=== PATIENT | female | born 1960 | race Caucasian/White ===

== ENCOUNTER 2022-01-05 12:53 | Emergency (ER) | payer MEDICAID, SELFPAY ==
--- NOTE | 2022-01-05 12:57 | ED.PSYCH ---
HPI - Psych General Chief Complaint: Psychiatric Symptoms Stated Complaint: SI SEEKING DETOX Time Seen by Provider: 01/05/22 12:57 Source: patient Mode of arrival: EMS Limitations: no limitations History of Present Illness HPI Narrative: 61 yo female with ETOH abuse, lupus reports increased stressors, ETOH and SI complaint: suicidal ideation and feels depressed Onset (ago): day(s) Duration: getting worse History of same: Yes Relieving factors: none Exacerbating factors: alcohol Context: recent alcohol abuse Associated psychiatric symptoms: depression and suicidal ideation Associated symptoms: denies other symptoms Treatments prior to arrival: none If self harm: admits thoughts of self harm Related Data Home Medications Medication Instructions Recorded Confirmed etanercept 50 mg/mL (1 mL) 1 ml subcut QWEEK 01/05/22 01/05/22 subcutaneous pen injector (Enbrel SureClick) Allergies Allergy/AdvReac Type Severity Reaction Status Date / Time No Known Allergies Allergy Verified 01/05/22 13:14 Review of Systems Review of Systems: Constitutional : No Fever, No Chills ENT/Mouth : No Ear Pain, No Nasal Congestion, No sore throat Eyes: No Eye Pain, No Swelling, No Redness Cardiovascular : No Chest Pain, No SOB Respiratory : No Cough, No Sputum, No Dyspnea Gastrointestinal : No Nausea, No Vomiting, No Diarrhea, No Hematochezia, No Melena Genitourinary : No Dysuria, No Urinary Frequency, No Hematuria Musculoskeletal : No Myalgias Skin : No Skin Lesions, No rash Neuro : No Weakness, No Numbness, No Paresthesias, No Dizziness, No Headache Psych : positive Anxiety, positive Depression, positive SI no HI Heme/Lymph: No Lymphadenopathy Endocrine : No Polyuria, No Polydipsia All other systems reviewed and are negative [facility] Past Medical History Attestation statement: The following information was validated with the patient. Medical History Alcohol abuse Lupus Social History Social History (Updated 01/05/22 @ 13:56 by Fabiola Grimes DO) Alcohol intake: current Patient Tobacco Use Status: Current everyday Tobacco user Advance Directives: No Physical Exam Vital Signs: Vital Signs: Last Vital Signs Temp 98.3 F 01/05/22 14:10 Pulse 105 H 01/05/22 14:10 Resp 16 01/05/22 14:10 BP 156/133 H 01/05/22 14:10 Pulse Ox 98 01/05/22 14:10 O2 Del Method 01/05/22 14:10 BMI result Body Mass Index 23.8 Appearance: Alert. Oriented X3. No acute distress. ETOH odor Eyes: Pupils equal, round and reactive to light. ENT: Pharynx normal. Neck: Normal inspection. Neck supple. CVS: Normal heart rate and rhythm. Pulses normal. Respiratory: No respiratory distress. Breath sounds normal. Abdomen: Soft and non-tender. Skin: Skin warm and dry. Normal skin color. Normal skin turgor. Extremities: No lower extremity edema. No calf ttp Neuro: Oriented X 3. No motor deficit. No sensory deficit. CN 2-12 intact Course Course Course Narrative: LFTs and AG expected from [facility] Physician observation started at 312pm. Patient placed in physician observation because the patient needed more time for BHN to assess the need for psych admission. At the time observation was started the patient's vitals were stable, patient is alert and oriented, Neuro: nonfocal, CV RRR, Lungs clear MDM - Psych MDM Narrative Medical decision making narrative: 61 yo female with ETOH abuse, made SI statements at this time labs, PRN mediactions, BHN consult ordered. Dispo per results and their recommendations Lab Data Result diagrams: 01/05/22 14:38 01/05/22 14:38 Labs: Lab Results 01/05/22 01/05/22 01/05/22 Range/Units 14:38 14:38 14:38 WBC 5.7 (4.8-10.8) X10*3/uL RBC 3.48 L (4.20-5.50) X10*6/uL Hgb 12.0 (12.0-16.0) g/dl Hct 36.5 L (37.0-47.0) % MCV 104.9 H (80.0-98.0) fL MCH 34.5 H (27.0-33.0) pg MCHC 32.9 (31.0-35.0) g/dl RDW 16.6 H (11.0-16.0) % Plt Count 197 (160-400) X10*3/uL MPV 9.1 L (9.4-12.3) fL Immature Gran % (Auto) 0.2 (0.0-0.4) % Neut % (Auto) 48.1 (45-73) % Lymph % (Auto) 42.3 H (20-40) % Mcdonald % (Auto) 7.4 (2-11) % Eos % (Auto) 0.4 (0-4) % Baso % (Auto) 1.6 (0-2) % Lymph # (Auto) 2.4 (1.2-4.9) X10*3/uL Mcdonald # (Auto) 0.4 (0.1-1.2) X10*3/uL Eos # (Auto) 0.0 (0.0-0.4) X10*3/uL Baso # (Auto) 0.1 (0.0-0.2) X10*3/uL Abs Immat Gran (auto) 0.01 (0.00-0.03) X10*3/uL Absolute Neuts (auto) 2.7 (2.0-8.3) x10*3/uL Absolute Nucleated RBC 0.000 (0.0-0.012) X10*3/uL Nucleated RBC % (auto) 0.0 (0.0-0.2) /100WBC Sodium 142 (135-145) mmol/L Potassium 3.7 (3.3-5.1) mmol/L Chloride 103 (96-108) mmol/L Carbon Dioxide 20 L (22-29) mmol/L Anion Gap 23 H (12-20) BUN 13 (9-16) mg/dL Creatinine 0.68 (0.5-1.4) mg/dL Estim Creat Clear Calc 69.5 Estimated GFR > 60 Random Glucose 120 H (60-115) mg/dL Calcium 8.7 (8.4-10.2) mg/dL Magnesium 1.7 (1.6-2.6) mg/dL Total Bilirubin 0.5 (0.0-1.0) mg/dL Direct Bilirubin 0.3 (0.0-0.5) mg/dL AST 149 H (5-31) U/L ALT 74 H (0-31) U/L Alkaline Phosphatase 74 (39-117) U/L Total Protein 6.6 (6.5-8.0) g/dL Albumin 3.8 (3.5-5.0) g/dL Ethyl Alcohol 233 mg/dL COVID-19 (KIM) Negative (Negative) COVID-19 Clin Com See Note Discharge Plan Discharge Clinical Impression: Alcohol abuse Depression Qualifiers: Depression Type: unspecified Qualified Code(s): F32.A - Depression, unspecified Patient Disposition: Still a Patient Prescriptions: No Action Enbrel SureClick 50 mg/mL (1 mL) pen injector 1 ml subcut QWEEK
[2022-01-05] MEDS: LORazepam 1 MG TABLET 2 MG PO (13:36)
[2022-01-05] MEDS: Nicotine 21 MG PATCH.TD24 TRANSDERMA (13:36)
[2022-01-05] MEDS: Thiamine HCL 100 MG TABLET PO (13:37)
[2022-01-05 14:10] VITALS: BP 140/90; BP 156/133; PULSE 105; PULSE 99; RESP 16; TEMP 36.8; O2SAT 98; BMI 23.8
--- NOTE | 2022-01-05 14:30 | MHC.CARE ---
CARE Team checked in with Pt who is asking to leave. Pt denies current SI/HI/AH/VH. Pt reports she struggle with alcohol use and made a suicidal statement earlier but denies it now. Pt reports no hx of IPLOC admissions. Pt reports having a current therapist who knows everything about her . 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 Pt reports drinking today and interested in the recovery team. Plan for Pts BAL to be obtained to make further recommendations.
--- OUTSIDE RECORDS SUMMARY | 2022-01-05 14:32 | XMS_ITS | Continuity of Care Document ---
:1960 Author Organization [facility]ILITATION DIRECT[facility] Oncology Address [address] [place] [address]- Care Team Providers Name Role Phone Alva Jones Primary Care Physician [place] [facility] [place]20 [facility]IL[facility] DIRECT[facility] Oncology [address] [place] [id number] Allergies, Adverse Reactions, Alerts Substance Reaction Severity Status NKA Active Immunizations Not Given Vaccine Date Status Refusal Reason pneumococcal 23-valent vaccine 05/05/19 Not Given P atient Refuses Medications acetaminophen 325 mg oral capsule 2 capsule = 650 mg, By Mouth, Every 4 hours, PRN as needed for pain, # 40 capsule, 0 Refills, Maintenance, 02/16/20 7:58:00 EST, Capsule, [facility], Partial fill upon patient request if the prescription is for a schedule II opioid drug.... Start Date: 02/16/20 Status: OrderedColace sodium 100 mg oral capsule 100 mg, 1, capsule, By Mouth, 2 times a day, PRN, # 60 capsule, Refills 0, Tot. Refills 0, Maintenance, for constipation, 02/16/20 10:23:00 EST, Route to Pharmacy Electronically, [facility], Partial fill upon patient request if the presc... Start Date: 02/16/20 Status: Orderedetanercept 50 mg/mL subcutaneous solution = 50 mg, Subcutaneous Injection, Every week, every Saturday, # 3.92 mL, 0 Refills, Maintenance, 02/08/20 11:01:00 EST, Solution, Partial fill upon patient request Start Date: 02/08/20 Status: OrderedIbuprofen 800 mg, By Mouth, Daily, Refills 0, Maintenance, 02/08/20 10:51:00 EST, Partial fill upon patient request Start Date: 02/08/20 Status: Orderedibuprofen 600 mg oral tablet 600 mg, 1, tablet, By Mouth, Every 6 hours, # 40 tablet, Refills 0, Tot. Refills 0, Maintenance, 02/16/20 7:56:00 EST, Route to Pharmacy Electronically, [facility], Partial fill upon patient request if the prescription is for a schedule... Start Date: 02/16/20 Status: OrderedoxyCODONE 5 mg oral tablet 10 mg, 2, tablet, By Mouth, Every 6 hours, PRN, # 10 tablet, Refills 0, Tot. Refills 0, Maintenance,as needed for pain, 02/19/20 14:02:00 EST, Route to Pharmacy Electronically, [id number] ([id number]), Partial fill upon patient request if th... Start Date: 02/19/20 Status: OrderedSenna 8.6 mg oral tablet 8.6 mg, 1, tablet, By Mouth, 2 times a day, PRN, # 12 tablet, Refills 0, Tot. Refills 0, Maintenance, for constipation, 02/16/20 10:23:00 EST, Route to Pharmacy Electronically, [facility], Partial fill upon patient request if the... Start Date: 02/16/20 Status: Ordered Problem List Condition Effective Dates Status Health Status Informant Anemia(Confirmed) Active Degenerative disc disease, Active cervical(Confirmed) Lumbar degenerative disc Active disease(Confirmed) History of sepsis(Confirmed) Active Lupus(Confirmed) Active Pancreatitis(Confirmed) Active Pelvic mass in female(Confirmed) Active Thrombocytopenia(Confirmed) Active Follow-up examination after Active gynecological surgery(Confirmed) Social History Social History Type Response Smoking Status Former smoker, quit more yousuf n 30 days ago; Other: 1/2 ppd day for 155-20 years; entered on: 01/28/20 Sex
--- OUTSIDE RECORDS SUMMARY | 2022-01-05 14:32 | XMS_ITS | Continuity of Care Document ---
:1960 Author Organization [facility] PAINTER Oncology Address [address] [place] [address]- Care Team Providers Name Role Phone Alva Jones Primary Care Physician [place] [facility] [place](s): 03/02/20 - 04/28/20 [facility] [address] [place] [id number] Attending Physician: Luis Felipe Arellano MD Admitting Physician: Luis Felipe Arellano MD Referring Physician: Alva Jones Allergies, Adverse Reactions, Alerts Substance Reaction Severity Status NKA Active Immunizations Not Given Vaccine Date Status Refusal Reason pneumococcal 23-valent vaccine 05/05/19 Not Given P atient Refuses Medications acetaminophen 325 mg oral capsule 2 capsule = 650 mg, By Mouth, Every 4 hours, PRN as needed for pain, # 40 capsule, 0 Refills, Maintenance, 02/16/20 7:58:00 EST, Capsule, [facility], Partial fill upon patient request if the prescription is for a schedule II opioid drug.... Start Date: 02/16/20 Status: OrderedColace sodium 100 mg oral capsule 100 mg, 1, capsule, By Mouth, 2 times a day, PRN, # 60 capsule, Refills 0, Tot. Refills 0, Maintenance, for constipation, 02/16/20 10:23:00 EST, Route to Pharmacy Electronically, [facility], Partial fill upon patient request if the [...] 02/16/20 7:56:00 EST, Route to Pharmacy Electronically, [facility], Partial fill upon patient request if the prescription is for a schedule... Start Date: 02/16/20 Status: OrderedoxyCODONE 5 mg oral tablet 10 mg, 2, tablet, By Mouth, Every 6 hours, PRN, # 10 tablet, Refills 0, Tot. Refills 0, Maintenance,as needed for pain, 02/19/20 14:02:00 EST, Route to Pharmacy Electronically, [facility] ([id number]), Partial fill upon patient request if th... Start Date: 02/19/20 Status: OrderedSenna 8.6 mg oral tablet 8.6 mg, 1, tablet, By Mouth, 2 times a day, PRN, # 12 tablet, Refills 0, Tot. Refills 0, Maintenance, for constipation, 02/16/20 10:23:00 EST, Route to Pharmacy Electronically, [facility], Partial fill upon patient request [...]
--- OUTSIDE RECORDS SUMMARY | 2022-01-05 14:32 | XMS_ITS | Continuity of Care Document ---
:1960 Author Organization [facility] Address [address] [place] [id number]- Care Team Providers Name Role Phone Alva Jones Primary Care Physician Encounter [facility] [place] Date(s): 06/17/19 - 10/15/19 [facility] [address] [place] [id number] [facility] Attending Physician: Lucho Eduardo MD Admitting Physician: Lucho Eduardo MD Referring Physician: Alva Jones Allergies, Adverse Reactions, Alerts Substance Reaction Severity Status NKA Active Immunizations Not Given Vaccine Date Status Refusal Reason pneumococcal 23-valent vaccine 05/05/19 Not Given P atient Refuses Medications docusate sodium 100 mg oral tablet = 100 mg, By Mouth, 2 times a day, # 60 tablet, 0 Refills, Maintenance, 05/08/19 9:51:00 EST, Tablet Start Date: 05/08/19 Status: OrderedIbuprofen Refills 0, Maintenance, 04/13/16 14:56:28 Start Date: 04/13/16 Status: Ordered
--- OUTSIDE RECORDS SUMMARY | 2022-01-05 14:32 | XMS_ITS | Continuity of Care Document ---
:1960 Author Organization [facility] Address [address] [place] [id number]- Care Team Providers Name Role Phone Alva Jones Primary Care Physician [phone] Encounter [facility] [place] Date(s): 09/02/19 - 12/19/19 [facility] [address] [place] [id number] [facility] Attending Physician: Lucho Eduardo MD Admitting Physician: [...]
--- OUTSIDE RECORDS SUMMARY | 2022-01-05 14:32 | XMS_ITS | Continuity of Care Document ---
:1960 Author Organization [facility] MANAGER Oncology Address [address] [place] [address]- Care Team Providers Name Role Phone Alva Jones Primary Care Physician [place] [facility] [place]20 [facility] ENGINEERING MANAGER Oncology [address] [place] [id number] Allergies, Adverse Reactions, Alerts Substance Reaction Severity Status NKA Active Immunizations Not Given Vaccine Date Status Refusal Reason pneumococcal 23-valent vaccine 05/05/19 Not Given P atient Refuses Medications acetaminophen 325 mg oral capsule 2 capsule = 650 mg, By Mouth, Every 4 hours, PRN as needed for pain, # 40 capsule, 0 Refills, Maintenance, 02/16/20 7:58:00 EST, Capsule, [facility], Partial fill upon patient request if the prescription is for a schedule II opioid drug.... Start Date: 02/16/20 Status: OrderedColace sodium 100 mg oral capsule 100 mg, 1, capsule, By Mouth, 2 times a day, PRN, # 60 capsule, Refills 0, Tot. Refills 0, Maintenance, for constipation, 02/16/20 10:23:00 EST, Route to Pharmacy Electronically, [facility], Partial fill upon patient request if [...] 02/16/20 7:56:00 EST, Route to Pharmacy Electronically, [facility], Partial fill upon patient request if the prescription is for a schedule... Start Date: 02/16/20 Status: OrderedoxyCODONE 5 mg oral tablet 10 mg, 2, tablet, By Mouth, Every 6 hours, PRN, # 10 tablet, Refills 0, Tot. Refills 0, Maintenance,as needed for pain, 02/19/20 14:02:00 EST, Route to Pharmacy Electronically, [facility] ([id number]), Partial fill upon patient request if th... Start Date: 02/19/20 Status: OrderedSenna 8.6 mg oral tablet 8.6 mg, 1, tablet, By Mouth, 2 times a day, PRN, # 12 tablet, Refills 0, Tot. Refills 0, Maintenance, for constipation, 02/16/20 10:23:00 EST, Route to Pharmacy Electronically, [facility], Partial fill upon patient request if the... Start Date: 02/16/20 Status: Ordered Problem List Condition Effective Dates Status Health Status Informant Anemia(Confirmed) Active Degenerative disc disease, Active cervical(Confirmed) Lumbar degenerative disc Active disease(Confirmed) History of sepsis(Confirmed) Active Lupus(Confirmed) Active Pancreatitis(Confirmed) Active Pelvic mass in female(Confirmed) Active Thrombocytopenia(Confirmed) Active Social History Social History Type Response Smoking Status Former smoker, quit more yousuf n 30 days ago; Other: 1/2 ppd day for 155-20 years; entered on: 01/28/20 Sex
--- OUTSIDE RECORDS SUMMARY | 2022-01-05 14:32 | XMS_ITS | Continuity of Care Document ---
:1960 Author Organization [facility] Address [address] [place] [address]- Care Team Providers Name Role Phone Alva Jones Primary Care Physician Encounter [facility] [place] [id number] Date(s): 06/25/19 - 07/05/19 [facility] [address] [place] [id number] [facility] Attending Physician: Sheldon Chavez Admitting Physician: Sheldon Chavez Referring Physician: AdmtrSheldon Allergies, Adverse Reactions, Alerts Substance Reaction Severity [...]
--- OUTSIDE RECORDS SUMMARY | 2022-01-05 14:32 | XMS_ITS | Continuity of Care Document ---
:1960 Author Organization [facility] DIVISION DIRECTOR Oncology Address [address] [place] [address]- Care Team Providers Name Role Phone Alva Jones Primary Care Physician Encounter [facility] [place] Date(s): 02/05/20 - 03/06/20 [facility] DIRECT[facility] Oncology [address] [place] [id number] Allergies, Adverse Reactions, Alerts Substance Reaction Severity Status NKA Active Immunizations Not Given Vaccine Date Status Refusal Reason pneumococcal 23-valent vaccine 05/05/19 Not Given P atient Refuses Medications acetaminophen 325 mg oral capsule 2 capsule = 650 mg, By Mouth, Every 4 hours, PRN as needed for pain, # 40 capsule, 0 Refills, Maintenance, 02/16/20 7:58:00 EST, Capsule, [facility], Partial fill upon patient request if the prescription is for a schedule II opioid drug.... Start Date: 02/16/20 Status: OrderedColace sodium 100 mg oral capsule 100 mg, 1, capsule, By Mouth, 2 times a day, PRN, # 60 capsule, Refills 0, Tot. Refills 0, Maintenance, for constipation, 02/16/20 10:23:00 EST, Route to Pharmacy Electronically, [facility], Partial fill upon patient request if [...] 02/16/20 7:56:00 EST, Route to Pharmacy Electronically, [facility], Partial fill upon patient request if the prescription is for a schedule... Start Date: 02/16/20 Status: OrderedoxyCODONE 5 mg oral tablet 10 mg, 2, tablet, By Mouth, Every 6 hours, PRN, # 10 tablet, Refills 0, Tot. Refills 0, Maintenance,as needed for pain, 02/19/20 14:02:00 EST, Route to Pharmacy Electronically, [facility] ([id number]), Partial fill upon patient request if th... Start Date: 02/19/20 Status: OrderedSenna 8.6 mg oral tablet 8.6 mg, 1, tablet, By Mouth, 2 times a day, PRN, # 12 tablet, Refills 0, Tot. Refills 0, Maintenance, for constipation, 02/16/20 10:23:00 EST, Route to Pharmacy Electronically, [facility] 3[facility]t, Partial fill upon patient request [...]
--- OUTSIDE RECORDS SUMMARY | 2022-01-05 14:32 | XMS_ITS | Continuity of Care Document ---
:1960 Author Organization [facility] DINING ROOM SUPERVISOR Oncology Address [address] [place] [address]- Care Team Providers Name Role Phone Alva Jones Primary Care Physician [place] [facility] [place](s): 03/29/20 - 04/28/20 [facility] DINING ROOM SUPERVISOR Oncology [address] [place] [id number] Attending Physician: Sheldon Chavez Admitting Physician: Admtr, Sheldon Referring Physician: Admtr, Ar8 Allergies, Adverse Reactions, Alerts Substance Reaction Severity Status NKA Active Immunizations Not Given Vaccine Date Status Refusal Reason pneumococcal 23-valent vaccine 05/05/19 Not Given P atient Refuses Medications acetaminophen 325 mg oral capsule 2 capsule = 650 mg, By Mouth, Every 4 hours, PRN as needed for pain, # 40 capsule, 0 Refills, Maintenance, 02/16/20 7:58:00 EST, Capsule, [facility], Partial fill upon patient request if the prescription is for a schedule II opioid drug.... Start Date: 02/16/20 Status: OrderedColace sodium 100 mg oral capsule 100 mg, 1, capsule, By Mouth, 2 times a day, PRN, # 60 capsule, Refills 0, Tot. Refills 0, Maintenance, for constipation, 02/16/20 10:23:00 EST, Route to Pharmacy Electronically, [facility], Partial fill upon patient request [...] 7:56:00 EST, Route to Pharmacy Electronically, [facility], Partial fill upon patient request if the prescription is for a schedule... Start Date: 02/16/20 Status: OrderedoxyCODONE 5 mg oral tablet 10 mg, 2, tablet, By Mouth, Every 6 hours, PRN, # 10 tablet, Refills 0, Tot. Refills 0, Maintenance,as needed for pain, 02/19/20 14:02:00 EST, Route to Pharmacy Electronically, [facility] [id number] ([id number]), Partial fill upon patient request if th... Start Date: 02/19/20 Status: OrderedSenna 8.6 mg oral tablet 8.6 mg, 1, tablet, By Mouth, 2 times a day, PRN, # 12 tablet, Refills 0, Tot. Refills 0, Maintenance, for constipation, 02/16/20 10:23:00 EST, Route to Pharmacy Electronically, [facility], Partial fill upon patient request [...]
--- OUTSIDE RECORDS SUMMARY | 2022-01-05 14:32 | XMS_ITS | Continuity of Care Document ---
:1960 Author Organization [facility] Address [address] [place] [id number]- Care Team Providers Name Role Phone Alva Jones Primary Care Physician [place] [facility] [place] 07/02/19 [facility] [address] [place] [id number] [facility] Attending Physician: Lucho Eduardo MD [...]
--- OUTSIDE RECORDS SUMMARY | 2022-01-05 14:32 | XMS_ITS | Continuity of Care Document ---
:1960 Author Organization [facility] [place] Address [address] [place] [address], [address] [address]- Care Team Providers Name Role Phone Alva Jones Primary Care Physician Encounter 05/27/19 - 06/03/19 [facility] [address], [address] [phone]- [facility] Attending Physician: Lucho Eduardo MD Admitting Physician: Lucho Eduardo MD Referring Physician: Lucho Eduardo MD Allergies, Adverse Reactions, Alerts Substance Reaction Severity [...]
--- OUTSIDE RECORDS SUMMARY | 2022-01-05 14:32 | XMS_ITS | Continuity of Care Document ---
:1960 Author Organization [facility] Address [address] [place] [address]- Care Team Providers Name Role Phone Alva Jones Primary Care Physician [place] [facility] [place]20 [place] 03/09/20 [facility] [address] [place] [id number] Allergies, Adverse Reactions, Alerts Substance Reaction Severity Status NKA Active Immunizations Not Given Vaccine Date Status Refusal Reason pneumococcal 23-valent vaccine 05/05/19 Not Given P atient Refuses Medications acetaminophen 325 mg oral capsule 2 capsule = 650 mg, By Mouth, Every 4 hours, PRN as needed for pain, # 40 capsule, 0 Refills, Maintenance, 02/16/20 7:58:00 EST, Capsule, [facility], Partial fill upon patient request if the prescription is for a schedule II opioid drug.... Start Date: 02/16/20 Status: OrderedColace sodium 100 mg oral capsule 100 mg, 1, capsule, By Mouth, 2 times a day, PRN, # 60 capsule, Refills 0, Tot. Refills 0, Maintenance, for constipation, 02/16/20 10:23:00 EST, Route to Pharmacy Electronically, [facility], Partial fill upon patient request [...] 02/16/20 7:56:00 EST, Route to Pharmacy Electronically, [facility], Partial fill upon patient request if the prescription is for a schedule... Start Date: 02/16/20 Status: OrderedoxyCODONE 5 mg oral tablet 10 mg, 2, tablet, By Mouth, Every 6 hours, PRN, # 10 tablet, Refills 0, Tot. Refills 0, Maintenance,as needed for pain, 02/19/20 14:02:00 EST, Route to Pharmacy Electronically, [email or web address] Partial fill upon patient request if th... Start Date: 02/19/20 Status: OrderedSenna 8.6 mg oral tablet 8.6 mg, 1, tablet, By Mouth, 2 times a day, PRN, # 12 tablet, Refills 0, Tot. Refills 0, Maintenance, for constipation, 02/16/20 10:23:00 EST, Route to Pharmacy Electronically, [facility], Partial fill upon patient request if [...]
--- OUTSIDE RECORDS SUMMARY | 2022-01-05 14:32 | XMS_ITS | Continuity of Care Document ---
:1960 Author Organization [facility] Address [address] [place] [address]- Care Team Providers Name Role Phone Alva Jones Primary Care Physician En[place] [facility] [place] [id number] Date(s): 11/19/19 - 12/19/19 [facility] [address] [place] [address]- [facility] Attending Physician: Sheldon Chavez Admitting Physician: Sheldon [...]
--- OUTSIDE RECORDS SUMMARY | 2022-01-05 14:32 | XMS_ITS | Continuity of Care Document ---
:1960 Author Organization [facility] Address [address] [place] [address]- Care Team Providers Name Role Phone Alva Jones Primary Care Physician [place] [facility] [place] - 05/08/[address] [address]- [facility] Discharge Disposition: A-D/C Home Attending Physician: Noé Rubalcava MD Admitting Physician: Noé Rubalcava MD Referring Physician: Not on Staff, Referring MD Allergies, Adverse Reactions, Alerts Substance Reaction Severity Status NKA Active Immunizations Not Given Vaccine Date Status Refusal Reason pneumococcal 23-valent vaccine 05/05/19 Not Given P atient Refuses Medications acetaminophen 325 mg oral tablet 650 mg, By Mouth, Every 4 hours, PRN, for 7 days, not to exceed 4000 mg/day, # 40 tablet, Refills 0,Tot. Refills 0, Acute 05/15/19 9:51:00 EST, Pain , Moderate, 05/08/19 9:51:00 EST, Print Requisition Start Date: 05/08/19 Stop Date: 05/15/19 Status: Ordereddocusate sodium 100 mg oral tablet = 100 mg, By Mouth, 2 times a day, # 60 tablet, 0 Refills, Maintenance, 05/08/19 9:51:00 EST, Tablet Start Date: 05/08/19 Status: OrderedIbuprofen Refills 0, Maintenance, 04/13/16 14:56:28 Start Date: 04/13/16 Status: OrderedlevoFLOXacin 750 mg oral tablet 1 tablet = 750 mg, By Mouth, Every 24 hours, for 4 days, # 4 tablet, 0 Refills, Acute 05/12/19 9:50:00 EST, 05/08/19 9:50:00 EST, Tablet Start Date: 05/08/19 Stop Date: 05/12/19 Status: OrderedoxyCODONE 5 mg oral tablet 5 mg, 1, tablet, By Mouth, Every 4 hours, PRN, for 5 days, # 8 tablet, Refills 0, Tot. Refills 0, Acute 05/13/19 9:51:00 EST, Pain , Severe, 05/08/19 9:51:00 EST, Print Requisition, Partial fill upon patient request Start Date: 05/08/19 Stop Date: 05/13/19 Status: Ordered Results Orders for Microbiology Reports Name Date Anaerobic Culture (ANAEROBIC CULTURE) 05/06/19 Sterile Body Fluid Culture W/ Gram Smear (STERILE FLUI D CULT.) 05/06/19 Microbiology Reports TEST:Anaerobic Culture STATUS:Unauthenticated BODY SITE: SOURCE:FLUID COLLECTED DATE/TIME:05/06/19 4:10 PMAnaerobic Culture SPECIMEN DESCRIPTION : FLUID PANCREATIC SPECIAL REQUESTS : NONE CULTURE : NO ANAEROBES ISOLATED SO FAR. REPORT STATUS : PRELIMINARY REPORT TEST:Sterile Fluid Culture STATUS:Unauthenticated BODY SITE: SOURCE:FLUID COLLECTED DATE/TIME:05/06/19 4:10 PMSterile Fluid Culture SPECIMEN DESCRIPTION : FLUID PANCREATIC SPECIAL REQUESTS : NONE GRAM STAIN : 3+ WHITE BLOOD CELLS NO ORGANISMS SEEN CULTURE : NO GROWTH TO DATE REPORT STATUS : PRELIMINARY REPORT Vital Signs Most recent to oldest 1 2 3 [Reference Range]: Height 159 cm 159 cm 159 cm (05/07/19 3:28 PM) (05/07/19 11:28 AM) (05/07/19 7: 28 AM) Weight 55.9 kg 55.9 kg (05/06/19 1:19 PM) (05/03/19 8:16 PM) Oxygen Saturation [94-100 %] 100 % 100 % 95 % (05/08/19 11:00 AM) (05/08/19 7:00 AM) (05/08/19 2: 55 AM) Pulse Rate [55-90 bpm] 66 bpm 67 bpm 75 bpm (05/08/19 11:00 AM) (05/08/19 7:00 AM) (05/08/19 2: 55 AM) Body Mass Index [18.5-24.99] 22.11 22.11 (05/06/19 1:19 PM) (05/03/19 8:16 PM) Blood Pressure [90-138/55-84 108/61 mm Hg 107/66 mm Hg 119 /61 mm Hg mm Hg] (05/08/19 11:00 AM) (05/08/19 7:00 AM) (05/08/19 2: 55 AM) Respiratory Rate [16-30 16 br/min 16 br/min 16 br/mi n br/min] (05/08/19 3:00 PM) (05/08/19 2:59 PM) (05/08/19 1:4 5 PM) Temperature [96.8-100.4 DegF] 98.1 DegF 97.7 DegF 98 .1 DegF (05/08/19 11:00 AM) (05/08/19 7:00 AM) (05/08/19 2: 55 AM) Mode of Delivery (Oxygen) Room air Room air Room a ir (05/08/19 11:00 AM) (05/08/19 7:00 AM) (05/08/19 2: 55 AM) Blood pressure sites Arm, left Arm, left Arm, left (05/08/19 11:00 AM) (05/08/19 7:00 AM) (05/08/19 2: 55 AM) Temperature Route Oral Oral Oral (05/08/19 11:00 AM) (05/08/19 7:00 AM) (05/08/19 2: 55 AM) Dry Weight 61.2 kg 55.9 kg (05/06/19 6:10 PM) (05/03/19 8:16 PM) Dry Weight Obtained Via Bed scale (05/06/19 6:10 PM) Sensory deficits None (05/03/19 8:16 PM) Mobility assistance Independent (05/03/19 8:16 PM)
--- OUTSIDE RECORDS SUMMARY | 2022-01-05 14:32 | XMS_ITS | Continuity of Care Document ---
:1960 Author Organization [facility] Address [address] [place] [address]- Care Team Providers Name Role Phone Alva Jones Primary Care Physician [phone] Encounter [facility] [place] Date(s): 06/01/19 - 06/01/[address] [address]- [facility] Discharge Disposition: A-D/C Home Attending Physician: Lucho Eduardo MD Admitting Physician: [...] 04/13/16 14:56:28 Start Date: 04/13/16 Status: Ordered Results Radiology Reports Exam Date Time Procedure Performing Provider Status 06/01/19 9:09 AM ERCP Both Ducts [facility]; Auth (Verguzman d) Notes:(ERCP Both Ducts) Reason For Exam: STENT REMOVALRESULT: ERCP Both Ducts ERCP Both Ducts INDICATION: Reason: STENT REMOVAL COMPARISONS: None TECHNIQUE: Fluoroscopy support was provided. There was no radiologist in attendance. Fluoroscopy time: 17 seconds Technologist time: 40 minutes Exposure: 3.8 mGy FINDINGS: 7 images were submitted. Please refer to operative note for full details. IMPRESSION: See above. WSN: [id number] Ordering Physician: Lucho Eduardo Dictated By: Campos Flores MD Dictated Date/Time: 06/01/19 10:02 a Reviewed By: Campos Flores MD Signed By: Campos Flores MD Signed Date/Time: 06/01/19 10:02 am Transcribed By: KRISTI Transcribed Date/Time: 06/01/19 10:01 am Vital Signs Most recent to oldest 1 2 3 [Reference Range]: Height 160.0 cm (06/01/19 7:55 AM) Oxygen Saturation [94-100 %] 99 % 100 % 100 % (06/01/19 9:20 AM) (06/01/19 9:16 AM) (06/01/19 9:1 1 AM) Pulse Rate [55-90 bpm] 79 bpm (06/01/19 7:55 AM) Blood Pressure [90-138/55-84 mm 120/70 mm Hg 123/70 mm Hg 109/83 mm Hg Hg] (06/01/19 9:20 AM) (06/01/19 9:16 AM) (06/01/19 9:1 1 AM) Respiratory Rate [16-30 br/min] 13 br/min 33 br/min 17 br/min *L* *H* (06/01/19 9:11 AM ) (06/01/19 9:20 AM) (06/01/19 9:16 AM) Temperature [96.8-100.4 DegF] 97.9 DegF (06/01/19 7:55 AM) Mode of Delivery (Oxygen) Room air Room air Room a ir (06/01/19 9:20 AM) (06/01/19 9:16 AM) (06/01/19 9:1 1 AM) Blood pressure sites Arm, left (06/01/19 7:55 AM) Temperature Route Temporal (06/01/19 7:55 AM) Dry Weight 52.2 kg (06/01/19 7:55 AM)
--- OUTSIDE RECORDS SUMMARY | 2022-01-05 14:32 | XMS_ITS | Continuity of Care Document ---
:1960 Author Organization [facility] Address [address] [place] [address]- Care Team Providers Name Role Phone Alva Joens Primary Care Physician [phone] Encounter [facility] [place] Date(s): 02/15/20 - 02/16/[address] [address]- Encounter Diagnosis Post-operative state (Discharge Diagnosis) - 02/16/20 Discharge Disposition: A-D/C Home Attending Physician: Luis Felipe Arellano MD Admitting Physician: Luis Felipe Arellano MD Referring Physician: Luis Felipe Arellano MD Allergies, Adverse Reactions, Alerts Substance Reaction Severity Status NKA Active Immunizations Not Given Vaccine Date Status Refusal Reason pneumococcal 23-valent vaccine 05/05/19 Not Given P atient Refuses Medications acetaminophen 325 mg oral capsule 2 capsule = 650 mg, By Mouth, Every 4 hours, PRN as needed for pain, # 40 capsule, 0 Refills, Maintenance, 02/16/20 7:58:00 EST, Capsule, [facility], Partial fill upon patient request if the prescription is for a schedule II opioid drug.... Start Date: 02/16/20 Status: OrderedAugmentin 500 mg-125 mg oral tablet 1 tablet, By Mouth, Every 8 hours, for 7 days, # 21 tablet, 0 Refills, Acute 02/23/20 8:00:00 EST, 02/16/20 8:00:00 EST, Tablet, [facility], Partial fill upon patient request if the prescription is for a schedule II opioid drug., 158.5,... Start Date: 02/16/20 Stop Date: 02/23/20 Status: OrderedColace sodium 100 mg oral capsule 100 mg, 1, capsule, By Mouth, 2 times a day, PRN, # 60 capsule, Refills 0, Tot. Refills 0, Maintenance, for constipation, 02/16/20 10:23:00 EST, Route to Pharmacy Electronically, [facility], Partial fill upon patient request if the [...] Orderedibuprofen 600 mg oral tablet 600 mg, Tablet, By Mouth, 02/16/20 7:00:00 EST Start Date: 02/16/20 Stop Date: 02/16/20 Status: Completedibuprofen 600 mg oral tablet 600 mg, 1, tablet, By Mouth, Every 6 hours, # 40 tablet, Refills 0, Tot. Refills 0, Maintenance, 02/16/20 7:56:00 EST, Route to Pharmacy Electronically, [facility], Partial fill upon patient request if the prescription is for a schedule... Start Date: 02/16/20 Status: OrderedoxyCODONE 5 mg oral tablet 10 mg, 2, tablet, By Mouth, Every 6 hours, PRN, # 10 tablet, Refills 0, Tot. Refills 0, Maintenance,for pain, 02/16/20 7:59:00 EST, Route to Pharmacy Electronically, [facility], Partial fill upon patient request if the prescription is f... Start Date: 02/16/20 Status: OrderedPercocet-5 Tablet 2 tablet, Tablet, By Mouth, Every 4 hours, PRN for Pain , Severe, Routine, 02/15/20 13:14:00 EST Start Date: 02/15/20 Stop Date: 02/16/20 Status: DiscontinuedSenna 8.6 mg oral tablet 8.6 mg, 1, tablet, By Mouth, 2 times a day, PRN, # 12 tablet, Refills 0, Tot. Refills 0, Maintenance, for constipation, 02/16/20 10:23:00 EST, Route to Pharmacy Electronically, [facility], Partial fill upon patient request if the... Start Date: 02/16/20 Status: Ordered Problem List Condition Effective Dates Status Health Status Informant Anemia(Confirmed) Active Degenerative disc disease, Active cervical(Confirmed) Lumbar degenerative disc Active disease(Confirmed) History of sepsis(Confirmed) Active Lupus(Confirmed) Active Pancreatitis(Confirmed) Active Pelvic mass in female(Confirmed) Active Thrombocytopenia(Confirmed) Active Diagnosis Diagnosis Type Effective Dates Health Status Clinical In formant Service Post-operative Discharge 02/16/20 state Diagnosis Vital Signs Most recent to oldest 1 2 3 [Reference Range]: Height 158.5 cm 158.5 cm 158.5 cm (02/16/20 7:02 AM) (02/16/20 3:30 AM) (02/15/20 11: 49 PM) Weight 57 kg 56.8 kg (02/15/20 9:20 AM) (02/08/20 11:16 AM) Oxygen Saturation [94-100 97 % 100 % 97 % %] (02/16/20 7:02 AM) (02/16/20 3:30 AM) (02/15/20 11: 49 PM) Pulse Rate [55-90 bpm] 66 bpm 89 bpm 86 bpm (02/16/20 7:02 AM) (02/16/20 3:30 AM) (02/15/20 11: 49 PM) Body Mass Index 22.69 22.61 [18.5-24.99] (02/15/20 9:20 AM) (02/08/20 11:16 AM) Blood Pressure 134/69 mm Hg 146/80 mm Hg 154/75 mm Hg [90-138/55-84 mm Hg] (02/16/20 7:02 AM) *H* *H* (02/16/20 3:30 AM) (02/15/20 11:49 PM) Respiratory Rate [16-30 16 br/min 16 br/min 18 br/mi n br/min] (02/16/20 7:53 AM) (02/16/20 7:53 AM) (02/16/20 7:0 2 AM) Temperature [96.8-100.4 99.6 DegF 98.6 DegF 99.0 Deg F DegF] (02/16/20 7:02 AM) (02/16/20 3:30 AM) (02/15/20 11: 49 PM) Liters per Minute 2 L/min 2 L/min 6 L/min (02/15/20 3:00 PM) (02/15/20 2:15 PM) (02/15/20 1:4 5 PM) Mode of Delivery (Oxygen) Room air Room air Room a ir (02/16/20 7:02 AM) (02/16/20 3:30 AM) (02/15/20 11: 49 PM) Blood pressure sites Arm, right Arm, right Arm, right (02/16/20 7:02 AM) (02/16/20 3:30 AM) (02/15/20 11: 49 PM) Temperature Route Oral Oral Oral (02/16/20 7:02 AM) (02/16/20 3:30 AM) (02/15/20 11: 49 PM) Dry Weight 57 kg 56.8 kg (02/15/20 9:20 AM) (02/08/20 11:16 AM) Weight Obtained Via Standing scale Patient/family stated (02/15/20 9:20 AM) (02/08/20 11:16 AM) Dry Weight Obtained Via Standing scale Patient/family stated (02/15/20 9:20 AM) (02/08/20 11:16 AM) Social History Social History Type Response Smoking Status Former smoker, quit more yousuf n 30 days ago; Other: 1/2 ppd day for 155-20 years; entered on: 01/28/20 Sex
--- OUTSIDE RECORDS SUMMARY | 2022-01-05 14:33 | XMS_ITS | Continuity of Care Document ---
:1960 Author Organization [facility] Address [address] [facility], 3rd Floor, [address] [place] [address]- Care Team Providers Name Role Phone Alva Jones Primary Care Physician [phone] [place] [facility] [place]): 04/29/20 - 05/29/20 [facility] [address] [facility], [address] Floor, [address] [place] [id number] Attending Physician: Sheldon Chavez Admitting Physician: Sheldon [...] 0 Refills, Maintenance, 02/16/20 7:58:00 EST, Capsule, [facility], Partial fill upon patient request if the prescription is for a schedule II opioid drug.... Start Date: 02/16/20 Status: OrderedColace sodium 100 mg oral capsule 100 mg, 1, capsule, By Mouth, 2 times a day, PRN, # 60 capsule, Refills 0, Tot. Refills 0, Maintenance, for constipation, 02/16/20 10:23:00 EST, Route to Pharmacy Electronically, [facility], Partial fill upon patient request [...] 02/16/20 7:56:00 EST, Route to Pharmacy Electronically, [facility], Partial fill upon patient request if the prescription is for a schedule... Start Date: 02/16/20 Status: OrderedoxyCODONE 5 mg oral tablet 10 mg, 2, tablet, By Mouth, Every 6 hours, PRN, # 10 tablet, Refills 0, Tot. Refills 0, Maintenance,as needed for pain, 02/19/20 14:02:00 EST, Route to Pharmacy Electronically, [id number] Partial fill upon patient request if th... Start Date: 02/19/20 Status: OrderedSenna 8.6 mg oral tablet 8.6 mg, 1, tablet, By Mouth, 2 times a day, PRN, # 12 tablet, Refills 0, Tot. Refills 0, Maintenance, for constipation, 02/16/20 10:23:00 EST, Route to Pharmacy Electronically, [facility], Partial fill upon patient request if [...]
--- OUTSIDE RECORDS SUMMARY | 2022-01-05 14:33 | XMS_ITS | Continuity of Care Document ---
:1960 Author Organization [facility] Address [address] [place] [address], [address] [address]- Care Team Providers Name Role Phone Alva Jones Primary Care Physician Encounter 08/25/19 - 09/01/19 [facility] [address], [address] [address]- [facility] Attending Physician: Lucho Eduardo MD Admitting [...]
[2022-01-05 14:45] LABS: MANUAL DIFF FLAG NO
[2022-01-05 14:47] LABS: Basophils Absolute Auto 0.1 X10*3/uL (0.0-0.2); Basophils Percent Auto 1.6 % (0-2); Eosinophils Percent Auto 0.4 % (0-4); Hematocrit 36.5 % (37.0-47.0); Imm Gran Abs Auto 0.01 X10*3/uL (0.00-0.03); Imm Gran Pct Auto 0.2 % (0.0-0.4); Lymphocytes Absolute Auto 2.4 X10*3/uL (1.2-4.9); Lymphocytes Percent Auto 42.3 % (20-40); Mean Corpuscular HGB Conc 32.9 g/dl (31.0-35.0); Mean Corpuscular Hemoglobin 34.5 pg (27.0-33.0); Mean Corpuscular Volume 104.9 fL (80.0-98.0); Mean Platelet Volume 9.1 fL (9.4-12.3); Monocytes Absolute Auto 0.4 X10*3/uL (0.1-1.2); Monocytes Percent Auto 7.4 % (2-11); Neutrophils Absolute Auto 2.7 x10*3/uL (2.0-8.3); Neutrophils Percent Auto 48.1 % (45-73); Platelet Count 197 X10*3/uL (160-400); Red Blood Count 3.48 X10*6/uL (4.20-5.50); Red Cell Distribution Width 16.6 % (11.0-16.0); White Blood Count 5.7 X10*3/uL (4.8-10.8)
[2022-01-05 14:59] LABS: COVID-19 Test Negative (Negative); IDNOW Serial# 55D5AD1C
[2022-01-05 15:09] LABS: Alanine Aminotransferase 74 U/L (0-31); Albumin Level 3.8 g/dL (3.5-5.0); Alkaline Phosphatase 74 U/L (39-117); Anion Gap 23 (12-20); Aspartate Amino Transferase 149 U/L (5-31); Bilirubin Direct 0.3 mg/dL (0.0-0.5); Bilirubin Total 0.5 mg/dL (0.0-1.0); Blood Urea Nitrogen 13 mg/dL (9-16); Calcium 8.7 mg/dL (8.4-10.2); Carbon Dioxide 20 mmol/L (22-29); Chloride 103 mmol/L (96-108); Creatinine Clr Calc Pharmacy 69.5; Estimated Glomerular Filt Rate > 60; Ethanol 233 mg/dL; Glucose Random 120 mg/dL (60-115); Magnesium 1.7 mg/dL (1.6-2.6); Potassium 3.7 mmol/L (3.3-5.1); Sodium 142 mmol/L (135-145); Total Protein 6.6 g/dL (6.5-8.0)
--- NOTE | 2022-01-05 19:07 | MHC.CARE ---
CARE Team checks in with pt again. CARE Team met w/ pt earlier, however, we are following up as pt was intoxicated during that time. Pt denies SI, stating that was the alcohol talking. She denies hx of attempts, access to lethal means and hx of inpt admissions. Pt is interested in recovery, and options are discussed. Pt is interested in [facility] in [place], [place]. Referral information is given to pt. Pt needs a ride home, and CARE Team will attempt to provide this. If pt is still in ED when cost recovery technician gets in, pt will be referred to cost recovery technician to continue discussing [facility] tx options. Case is discussed with DEX Casey, who agrees pt is appropriate for discharge att.
== END 2022-01-05 19:17 | disposition home or self-care (01) ==
PROVIDERS: Emergency Provider Emergency Medicine
DX: F33.1 Major depressive disorder, recurrent, moderate (principal); R45.851 Suicidal ideations; F10.10 Alcohol abuse, uncomplicated; Y90.9 Presence of alcohol in blood, level not specified; F17.200 Nicotine dependence, unspecified, uncomplicated; Z20.822 Contact with and (suspected) exposure to COVID-19; Z71.6 Tobacco abuse counseling; Z79.899 Other long term (current) drug therapy
CPT/HCPCS: 80048; 80076; 82077; 83735; 85025; 87635; 99282; 99284

== ENCOUNTER 2022-01-21 20:06 | Emergency (ER) | payer MEDICAID, SELFPAY ==
[2022-01-21 20:36] VITALS: BP 110/79; BP 150/80; PULSE 90; PULSE 91; RESP 18; TEMP 37.1; O2SAT 100; O2SAT 99; BMI 16.8
[2022-01-21 20:36] LABS: MANUAL DIFF FLAG NO
--- NOTE | 2022-01-21 20:38 | ED.PSYCH ---
HPI - Psych General Chief Complaint: ETOH/Substance Use Stated Complaint: etoh Time Seen by Provider: 01/21/22 20:51 Source: patient and EMS Mode of arrival: EMS Limitations: other (Patient very intoxicated) History of Present Illness HPI Narrative: This is a 61-year-old female presenting to the emergency department telling me she would like detox in stating she has been having anxiety and depression for few weeks worsening. Patient reports that she has been on a drinking binge in needs help. Reports she has been calling multiple psych facilities in the area that have not been able to take her. She tells me she has been drinking about 8 nips of vodka a day. She reports recent of parents and of a CT that she had for 20 years. These have been triggering. Denies visual, auditory and tactile hallucinations. Denies drugs tobacco. Patient denies medical complaints. Arrives agitated, tearful, appears intoxicated. She did make SI comments to EMS however denies SI and HI to myself. Related Data Home Medications Medication Instructions Recorded Confirmed etanercept 50 mg/mL (1 mL) 1 ml subcut QWEEK 01/05/22 01/05/22 subcutaneous pen injector (Enbrel SureClick) Allergies Allergy/AdvReac Type Severity Reaction Status Date / Time No Known Allergies Allergy Verified 01/21/22 20:35 Review of Systems Review of Systems: Constitutional : No Fever, No Chills ENT/Mouth : No Ear Pain, No Nasal Congestion, No sore throat Eyes: No Eye Pain, No Swelling, No Redness Cardiovascular : No Chest Pain, No SOB Respiratory : No Cough, No Sputum, No Dyspnea Gastrointestinal : No Nausea, No Vomiting, No Diarrhea, No Hematochezia, No Melena Genitourinary : No Dysuria, No Urinary Frequency, No Hematuria Musculoskeletal : No Myalgias Skin : No Skin Lesions, No rash Neuro : No Weakness, No Numbness, No Paresthesias, No Dizziness, No Headache Psych : positive Anxiety, positive Depression, No SI/HI Heme/Lymph: No Lymphadenopathy Endocrine : No Polyuria, No Polydipsia All other systems reviewed and are negative Yes all other systems are reviewed and are negative PMFSH Past Medical History Attestation statement: The following information was validated with the patient. Source: old records reviewed and nursing notes reviewed Medical History Alcohol abuse Lupus Social History Social History (Updated 01/05/22 @ 13:56 by Fabiola Grimes DO) Alcohol intake: current Patient Tobacco Use Status: Current everyday Tobacco user Advance Directives: No Advance Directives Information Provided: No Physical Exam Vital Signs: Vital Signs: Last Vital Signs Temp 97.4 F 01/22/22 09:02 Pulse 88 01/22/22 09:02 Resp 15 01/22/22 04:56 BP 151/79 H 01/22/22 09:02 Pulse Ox 100 01/22/22 09:02 O2 Del Method 01/22/22 09:02 BMI result Body Mass Index 16.8 vss Appearance: Alert.? Oriented X3.? No acute distress.? Patient smells like alcohol Head: Normocephalic, atraumatic, no step-offs or deformities Eyes: Pupils equal, round and reactive to light.? ENT: Pharynx normal.? Neck: Normal inspection.? Neck supple.? CVS: Normal heart rate and rhythm.? Pulses normal.? Respiratory: No respiratory distress.? Breath sounds normal.? Abdomen: Soft and nontender.? Skin: Skin warm and dry.? Normal skin color.? Normal skin turgor.? Extremities: No lower extremity edema.? No calf ttp. 5/5 strength to bilateral upper and lower extremities Neuro: Oriented X 3.? No motor deficit.? No sensory deficit. CN 2-12 intact . Patient ambulating with steady gait normal coordination. Course Reevaluation(s) Reevaluation #1: CBC appears to be around patient's baseline with a macrocytic anemia likely secondary to alcohol abuse, chemistry with decreased potassium, gave oral potassium repeat chemistry ordered to recheck potassium. Urine clean without infection. Urine toxicology negative. Patient is negative for salicylates, acetaminophen. Ethanol level 343 Time: 01:21 Reevaluation #2: At this time patient placed in physician observation pending repeat potassium. At time observation was started patient calm & cooperative in no acute distress will continue monitor Time: 01:23 Medications Administered Discontinued Medications Generic Name Dose Route Start Last Admin Trade Name Freq PRN Reason Stop Dose Admin Lorazepam 1 mg 01/22/22 09:25 01/22/22 09:28 Lorazepam 1 Mg Tablet PO 01/22/22 09:26 1 mg ONCE ONE Administration Ondansetron HCl 4 mg 01/22/22 09:25 01/22/22 09:28 Ondansetron Odt 4 Mg Tab.Rapdis TRANSLINGU 01/22/22 09:26 4 mg ONCE ONE Administration Potassium Chloride 40 meq 01/21/22 21:09 01/21/22 21:48 Potassium Chloride Er 20 Meq Tab.Er.Prt PO 01/21/22 21:10 40 meq ONCE ONE Administration MDM - Psych MDM Narrative Medical decision making narrative: 2039 61-year-old female presents with acute alcohol intoxication, anxiety, depression and made a suicidal comments to EMS. Reports recent life stressors of family members and of cat of 20 years. Physical examination benign however patient is smells like alcohol and appears to be acutely intoxicated. Plan at this time medical clearance evaluation by the behavioral health team. Medical Records Attestation: I reviewed the patient's medical records. Lab Data Attestation: I reviewed the patient's lab results. Result diagrams: 01/21/22 20:01/22/22 02:52 Labs: Lab Results 01/21/22 01/21/22 01/21/22 Range/Units 20:22 20:22 20:22 WBC 5.4 (4.8-10.8) X10*3/uL RBC 3.25 L (4.20-5.50) X10*6/uL Hgb 11.4 L (12.0-16.0) g/dl Hct 33.0 L (37.0-47.0) % MCV 101.5 H (80.0-98.0) fL MCH 35.1 H (27.0-33.0) pg MCHC 34.5 (31.0-35.0) g/dl RDW 16.1 H (11.0-16.0) % Plt Count 107 L D (160-400) X10*3/uL MPV 9.3 L (9.4-12.3) fL Immature Gran % (Auto) 0.2 (0.0-0.4) % Neut % (Auto) 40.5 L (45-73) % Lymph % (Auto) 52.2 H (20-40) % [place] % (Auto) 5.9 (2-11) % Eos % (Auto) 0.6 (0-4) % Baso % (Auto) 0.6 (0-2) % Lymph # (Auto) 2.8 (1.2-4.9) X10*3/uL [place] # (Auto) 0.3 (0.1-1.2) X10*3/uL Eos # (Auto) 0.0 (0.0-0.4) X10*3/uL Baso # (Auto) 0.0 (0.0-0.2) X10*3/uL Abs Immat Gran (auto) 0.01 (0.00-0.03) X10*3/uL Absolute Neuts (auto) 2.2 (2.0-8.3) x10*3/uL Absolute Nucleated RBC 0.000 (0.0-0.012) X10*3/uL Nucleated RBC % (auto) 0.0 (0.0-0.2) /100WBC Sodium 144 (135-145) mmol/L Potassium 2.9 L D (3.3-5.1) mmol/L Chloride 107 (96-108) mmol/L Carbon Dioxide 23 (22-29) mmol/L Anion Gap 17 (12-20) BUN 14 (9-16) mg/dL Creatinine 0.66 (0.5-1.4) mg/dL Estim Creat Clear Calc 61.6 Estimated GFR > 60 Random Glucose 136 H (60-115) mg/dL Calcium 9.2 (8.4-10.2) mg/dL Total Bilirubin 0.6 (0.0-1.0) mg/dL AST 31 D (5-31) U/L ALT 20 (0-31) U/L Alkaline Phosphatase 78 (39-117) U/L Total Protein 6.8 (6.5-8.0) g/dL Albumin 4.0 (3.5-5.0) g/dL Urine Color Urine Appearance Urine pH (5.0-9.0) Ur Specific [place] (1.005-1.025) Urine Protein (Neg-Trace) mg/dL Urine Glucose (UA) (Negative) mg/dL Urine Ketones (Negative) mg/dL Urine Blood (Negative) Urine Nitrite (Negative) Ur Leukocyte Esterase (Negative) Urine RBC (0-2) /HPF Urine WBC (0-5) /HPF Ur Squamous Epith Cells (0-2) /HPF Urine Bacteria (None Seen) Hyaline Casts (0-2) /LPF Salicylates < 5.0 L (15-30) mg/dL Urine Opiates Screen (Not Detect) Urine Fentanyl Screen (Not Detect) Acetaminophen < 1 (<30) mcg/mL Ur Barbiturates Screen (Not Detect) Ur Phencyclidine Scrn (Not Detect) Ur Amphetamines Screen (Not Detect) U Benzodiazepines Scrn (Not Detect) Urine Cocaine Screen (Not Detect) U Marijuana (THC) Screen (Not Detect) Ethyl Alcohol 343 H* mg/dL COVID-19 (KIM) Negative (Negative) COVID-19 Clin Com See Note 01/21/22 01/21/22 01/22/22 Range/Units 20:22 20:22 02:52 WBC (4.8-10.8) X10*3/uL RBC (4.20-5.50) X10*6/uL Hgb (12.0-16.0) g/dl Hct (37.0-47.0) % MCV (80.0-98.0) fL MCH (27.0-33.0) pg MCHC (31.0-35.0) g/dl RDW (11.0-16.0) % Plt Count (160-400) X10*3/uL MPV (9.4-12.3) fL Immature Gran % (Auto) (0.0-0.4) % Neut % (Auto) (45-73) % Lymph % (Auto) (20-40) % [place] % (Auto) (2-11) % Eos % (Auto) (0-4) % Baso % (Auto) (0-2) % Lymph # (Auto) (1.2-4.9) X10*3/uL [place] # (Auto) (0.1-1.2) X10*3/uL Eos # (Auto) (0.0-0.4) X10*3/uL Baso # (Auto) (0.0-0.2) X10*3/uL Abs Immat Gran (auto) (0.00-0.03) X10*3/uL Absolute Neuts (auto) (2.0-8.3) x10*3/uL Absolute Nucleated RBC (0.0-0.012) X10*3/uL Nucleated RBC % (auto) (0.0-0.2) /100WBC Sodium 145 (135-145) mmol/L Potassium 3.4 (3.3-5.1) mmol/L Chloride 108 (96-108) mmol/L Carbon Dioxide 20 L (22-29) mmol/L Anion Gap 20 (12-20) BUN 13 (9-16) mg/dL Creatinine 0.66 (0.5-1.4) mg/dL Estim Creat Clear Calc 61.6 Estimated GFR > 60 Random Glucose 133 H (60-115) mg/dL Calcium 8.6 D (8.4-10.2) mg/dL Total Bilirubin (0.0-1.0) mg/dL AST (5-31) U/L ALT (0-31) U/L Alkaline Phosphatase (39-117) U/L Total Protein (6.5-8.0) g/dL Albumin (3.5-5.0) g/dL Urine Color Yellow Urine Appearance Cloudy Urine pH 6.0 (5.0-9.0) Ur Specific [place] 1.015 (1.005-1.025) Urine Protein Negative (Neg-Trace) mg/dL Urine Glucose (UA) Negative (Negative) mg/dL Urine Ketones Negative (Negative) mg/dL Urine Blood Negative (Negative) Urine Nitrite Negative (Negative) Ur Leukocyte Esterase Small (1+) H (Negative) Urine RBC 0-2 (0-2) /HPF Urine WBC 0-5 (0-5) /HPF Ur Squamous Epith Cells >20 (0-2) /HPF Urine Bacteria 1+ (None Seen) Hyaline Casts 0-2 (0-2) /LPF Salicylates (15-30) mg/dL Urine Opiates Screen Not Detected (Not Detect) Urine Fentanyl Screen Not Detected (Not Detect) Acetaminophen (<30) mcg/mL Ur Barbiturates Screen Not Detected (Not Detect) Ur Phencyclidine Scrn Not Detected (Not Detect) Ur Amphetamines Screen Not Detected (Not Detect) U Benzodiazepines Scrn Not Detected (Not Detect) Urine Cocaine Screen Not Detected (Not Detect) U Marijuana (THC) Screen Not Detected (Not Detect) Ethyl Alcohol mg/dL COVID-19 (KIM) (Negative) COVID-19 Clin Com Critical Care Time Critical Care Time Critical Care Time: No Discharge Plan Discharge Clinical Impression: Alcoholic intoxication, Hypokalemia, Suicidal ideations, Depression Patient Disposition: Home, Self-Care Instructions: Alcohol Intoxication (ED), Depression (ED) Prescriptions: No Action Enbrel SureClick 50 mg/mL (1 mL) pen injector 1 ml subcut QWEEK Referrals: Maria Elena Gimenez MD [Primary Care Provider] - (Please follow-up as per PHN.)
[2022-01-21 20:40] LABS: Basophils Percent Auto 0.6 % (0-2); Eosinophils Percent Auto 0.6 % (0-4); Hemoglobin 11.4 g/dl (12.0-16.0); Imm Gran Abs Auto 0.01 X10*3/uL (0.00-0.03); Imm Gran Pct Auto 0.2 % (0.0-0.4); Lymphocytes Absolute Auto 2.8 X10*3/uL (1.2-4.9); Lymphocytes Percent Auto 52.2 % (20-40); Mean Corpuscular HGB Conc 34.5 g/dl (31.0-35.0); Mean Corpuscular Hemoglobin 35.1 pg (27.0-33.0); Mean Corpuscular Volume 101.5 fL (80.0-98.0); Mean Platelet Volume 9.3 fL (9.4-12.3); Monocytes Absolute Auto 0.3 X10*3/uL (0.1-1.2); Monocytes Percent Auto 5.9 % (2-11); Neutrophils Absolute Auto 2.2 x10*3/uL (2.0-8.3); Neutrophils Percent Auto 40.5 % (45-73); Platelet Count 107 X10*3/uL (160-400); Red Blood Count 3.25 X10*6/uL (4.20-5.50); Red Cell Distribution Width 16.1 % (11.0-16.0); White Blood Count 5.4 X10*3/uL (4.8-10.8)
[2022-01-21 20:42] LABS: Appearance Urine Cloudy; Color Urine Yellow; Glucose Urine UA Negative (Negative); Leukocyte Esterase Urine Small (1+) (Negative); Nitrite Urine Negative (Negative); Specific Gravity - Urine 1.015 (1.005-1.025); UMIC TRIGGER UACC YES; Urine Blood Negative (Negative); Urine Ketones Negative (Negative); Urine Protein Negative (Neg-Trace)
--- NOTE | 2022-01-21 20:43 | PC.NURSE ---
Patient arrives to the ED demanding things be done a certain way or else I'm walking out Patient now denies stating SI statements to EMS, Patient oriented to unit and POC, labs/urine/swab done. eval by PA done. pt sitting in room at desk eating dinner without difficulty.
[2022-01-21 20:51] LABS: Amphetamine Screen Urine Not Detected (Not Detect); Bacteria Urine 1+ (None Seen); Barbiturates, Urine Not Detected (Not Detect); Benzodiazepines Screen Urine Not Detected (Not Detect); Cannabinoid Screen Urine Not Detected (Not Detect); Cocaine Screen Urine Not Detected (Not Detect); Fentanyl, urine Not Detected (Not Detect); Hyaline Casts Urine 0-2 /LPF (0-2); Opiate Screen Urine Not Detected (Not Detect); Phencyclidine Screen Urine Not Detected (Not Detect); RBC Urine 0-2 /HPF (0-2); Squamous Epithelial Cell Urine >20 /HPF (0-2); UACC Culture Trigger YES; WBC Urine 0-5 /HPF (0-5)
[2022-01-21 20:56] LABS: Acetaminophen LAB < 1 mcg/mL (<30); Alanine Aminotransferase 20 U/L (0-31); Alkaline Phosphatase 78 U/L (39-117); Anion Gap 17 (12-20); Aspartate Amino Transferase 31 U/L (5-31); Bilirubin Total 0.6 mg/dL (0.0-1.0); Blood Urea Nitrogen 14 mg/dL (9-16); Calcium 9.2 mg/dL (8.4-10.2); Carbon Dioxide 23 mmol/L (22-29); Chloride 107 mmol/L (96-108); Creatinine Clr Calc Pharmacy 61.6; Estimated Glomerular Filt Rate > 60; Ethanol 343 mg/dL; Glucose Random 136 mg/dL (60-115); Potassium 2.9 mmol/L (3.3-5.1); Salicylate < 5.0 mg/dL (15-30); Sodium 144 mmol/L (135-145); Total Protein 6.8 g/dL (6.5-8.0)
[2022-01-21 21:00] LABS: COVID-19 Test Negative (Negative)
[2022-01-21] MEDS: Potassium Chloride ER 20 MEQ TAB.ER.PRT 40 MEQ PO (21:48)
[2022-01-22 03:19] LABS: Anion Gap 20 (12-20); Blood Urea Nitrogen 13 mg/dL (9-16); Calcium 8.6 mg/dL (8.4-10.2); Carbon Dioxide 20 mmol/L (22-29); Chloride 108 mmol/L (96-108); Creatinine Clr Calc Pharmacy 61.6; Estimated Glomerular Filt Rate > 60; Glucose Random 133 mg/dL (60-115); Potassium 3.4 mmol/L (3.3-5.1); Sodium 145 mmol/L (135-145)
[2022-01-22 04:56] VITALS: BP 126/66; PULSE 101; RESP 15; TEMP 36.9; O2SAT 96
--- NOTE | 2022-01-22 06:52 | PC.NURSE ---
Patient up and down all night sleeping in naps. Up to the BR multiple times gait steady. 15min checks done.
[2022-01-22 09:02] VITALS: BP 151/79; PULSE 88; TEMP 36.3; O2SAT 100
[2022-01-22] MEDS: Ondansetron ODT 4 MG TAB.RAPDIS TRANSLINGU (09:28)
[2022-01-22] MEDS: LORazepam 1 MG TABLET PO (09:28)
--- NOTE | 2022-01-22 10:02 | MHC.RECOVRN ---
Met with pt in [facility] to discuss substance use and desire for ATS. Pt sitting, awake, alert, slightly agitated. Pt reluctant to engage in discussion regarding alcohol use. Pt reports drinking 6-8 nips daily x about 2 years. Last drink yesterday. Pt denies withdrawal symptoms, states I feel okay. When can I leave? Pt denies ATS admissions. Pt does report receiving Vivitrol from PCP a couple years ago and reports it was very helpful. Denies other forms of AUD tx. Pt educated and provided with recovery resources. Declines referrals at this time, plans to follow up with PCP regarding KRISTI. Pt requesting Lyft home, t/w will arrange. Discussed with RN as well as provider.
== END 2022-01-22 10:48 | disposition home or self-care (01) ==
PROVIDERS: Physician Assistant; Emergency Provider Student in an Organized Health Care Education/Training Program; PCP Family Medicine
DX: F10.129 Alcohol abuse with intoxication, unspecified (principal); Y90.8 Blood alcohol level of 240 mg/100 ml or more; R45.851 Suicidal ideations; F33.1 Major depressive disorder, recurrent, moderate; E87.6 Hypokalemia; F17.200 Nicotine dependence, unspecified, uncomplicated; Z20.822 Contact with and (suspected) exposure to COVID-19; Z79.899 Other long term (current) drug therapy; Z71.6 Tobacco abuse counseling
CPT/HCPCS: 36415; 80048; 80053; 80143; 80179; 80307; 81001; 82077; 85025; 87086; 87635; 99284

== ENCOUNTER 2022-05-29 22:30 | Emergency (ER) | payer OTHER, MEDICAID, SELFPAY ==
[2022-05-29 22:35] VITALS: BP 110/78; PULSE 80; O2SAT 98
[2022-05-29 23:07] VITALS: BP 136/79; PULSE 79; RESP 16; TEMP 36.6; O2SAT 98; BMI 18.4
--- NOTE | 2022-05-29 23:10 | PC.NURSE ---
Security at bedside for changeover, belongings secured by security within the pod.
--- NOTE | 2022-05-29 23:21 | ED_ITS ---
HPI - Psych General Chief Complaint: Psychiatric Symptoms Stated Complaint: SI with plan ETOH Time Seen by Provider: 05/29/22 23:20 Source: patient and EMS Mode of arrival: EMS Limitations: other (Alcohol intoxication) History of Present Illness HPI Narrative: 61-year-old female presents via EMS for alcohol intoxication and suicidal ideation. Patient states that she is having a bad day, both of her parents , and she had been drinking alcohol excessively. Patient states that she is having trouble coping, patient states that she does not want to live anymore and that she wants to . MD complaint: suicidal ideation, feels depressed and alcohol abuse Onset (ago): year(s) Duration: constant History of same: Yes Relieving factors: none Exacerbating factors: alcohol Context: recent alcohol abuse and significant life stressor Associated psychiatric symptoms: depression and suicidal ideation Associated symptoms: denies other symptoms If self harm: admits thoughts of self harm Related Data Home Medications Medication Instructions Recorded Confirmed etanercept 50 mg/mL (1 mL) 1 ml subcut QWEEK 01/05/22 01/05/22 subcutaneous pen injector (Enbrel SureClick) Allergies Allergy/AdvReac Type Severity Reaction Status Date / Time No Known Allergies Allergy Verified 05/29/22 23:09 Review of Systems Review of Systems: Yes Unobtainable due to mental status (Intoxicated) [facility] Past Medical History Attestation statement: The following information was validated with the patient. Source: old records reviewed Medical History Alcohol abuse Lupus Social History Social History Alcohol intake: current Patient Tobacco Use Status: Current everyday Tobacco user Advance Directives: No Advance Directives Information Provided: Yes Physical Exam Vital Signs: Vital Signs: Last Vital Signs Temp 97.9 F 05/29/22 23:07 Pulse 79 05/29/22 23:07 Resp 16 05/29/22 23:07 BP 136/79 05/29/22 23:07 Pulse Ox 98 05/29/22 23:07 O2 Del Method 05/29/22 23:07 BMI result Body Mass Index 18.4 Appearance: Alert. Intoxicated. Eyes: Pupils equal, round and reactive to light. Sclera nonicteric. ENT: Pharynx normal. Neck: Normal inspection. Neck supple. CVS: Normal heart rate and rhythm. Pulses normal. Respiratory: No respiratory distress. Breath sounds normal. Abdomen: Soft and nontender. Skin: Multiple abrasions to her forearms in the middle of her forehead. Extremities: No lower extremity edema. Moves all extremities against resistance. Gait not assessed for safety due to alcohol intoxication. Neuro: No motor deficit. No sensory deficit. Cranial nerves 2-12 intact Course Course Course Narrative: 7-year-old female presents via EMS for alcohol intoxication suicidal ideation. Patient states that she has had multiple life stressors, both of her parents , and she is having really bad day. Patient has been drinking alcohol on a regular basis in excessive amounts. Has had multiple presentations to the emergency department for alcohol intoxication in the past. Patient has several abrasions to her forearms and a healing abrasion to the middle of her forehead. Patient states that she does not recall how these injuries happened, but is not complaining of any pain. Patient is belligerent, speaking and derogatory manners to all staff members. Plan of care is for lab values, EtOH, wound care, update Tdap vaccine, and crisis consult. 01:50 ETOH 385, potassium 3.0, will replete with 40 mEq. Patient will not be sober for evaluation till the morning. Lab values indicate anemia consistent with EtOH, values are consistent with her prior values dating back to 2020. Physician observation started at this time. Pending crisis consult. Medications Administered Discontinued Medications Generic Name Dose Route Start Last Admin Trade Name Freq PRN Reason Stop Dose Admin Lorazepam 2 mg 05/30/22 00:17 05/30/22 00:23 Lorazepam 1 Mg Tablet PO 05/30/22 00:18 2 mg ONCE ONE Administration Medical Decision Making Differential Diagnosis Differential Diagnoses: The differential diagnosis associated with the presentation includes Suicidal ideation Admission/Observation Consideration of admission/observation: Escalation of care including admission/observation considered May require psychiatric admission Consult Healthcare Provider Management of the patient was discussed with: Behavioral Health Provider Lab Data [facility] Lab Attestation statement: I reviewed the patient's lab results. 05/29/22 23:42 05/29/22 23:42 Labs: Lab Results 05/29/22 05/29/22 Range/Units 23:42 23:42 WBC 5.3 (4.8-10.8) X10*3/uL RBC 2.81 L (4.20-5.50) X10*6/uL Hgb 10.8 L (12.0-16.0) g/dl Hct 31.3 L (37.0-47.0) % MCV 111.4 H (80.0-98.0) fL MCH 38.4 H (27.0-33.0) pg MCHC 34.5 (31.0-35.0) g/dl RDW 13.7 (11.0-16.0) % Plt Count 79 L D (160-400) X10*3/uL MPV 10.2 (9.4-12.3) fL Immature Gran % (Auto) 0.4 (0.0-0.4) % Neut % (Auto) 30.0 L (45-73) % Lymph % (Auto) 61.8 H (20-40) % [place] % (Auto) 6.7 (2-11) % Eos % (Auto) 0.4 (0-4) % Baso % (Auto) 0.7 (0-2) % Lymph # (Auto) 3.3 (1.2-4.9) X10*3/uL [place] # (Auto) 0.4 (0.1-1.2) X10*3/uL Eos # (Auto) 0.0 (0.0-0.4) X10*3/uL Baso # (Auto) 0.0 (0.0-0.2) X10*3/uL Abs Immat Gran (auto) 0.02 (0.00-0.03) X10*3/uL Absolute Neuts (auto) 1.6 L (2.0-8.3) x10*3/uL Absolute Nucleated RBC 0.000 (0.0-0.012) X10*3/uL Nucleated RBC % (auto) 0.0 (0.0-0.2) /100WBC Smear Tech's Comments VERIFIED Sodium 145 (135-145) mmol/L Potassium 3.0 L (3.3-5.1) mmol/L Chloride 104 (96-108) mmol/L Carbon Dioxide 24 (22-29) mmol/L Anion Gap 20 (12-20) BUN 10 (9-16) mg/dL Creatinine 0.64 (0.5-1.4) mg/dL Estim Creat Clear Calc 69.5 Estimated GFR > 60 Random Glucose 136 H (60-115) mg/dL Calcium 8.4 (8.4-10.2) mg/dL Total Bilirubin 1.1 H (0.0-1.0) mg/dL AST 45 H (5-31) U/L ALT 24 (0-31) U/L Alkaline Phosphatase 61 (39-117) U/L Total Protein 5.6 L (6.5-8.0) g/dL Albumin 3.4 L (3.5-5.0) g/dL Ethyl Alcohol 385 H* mg/dL External Record Review External record reviewed: Outpatient record and Prior outpatient labs No prior imaging at this was Social Determinants Patient?s care significantly limited by Social Determinants of Health including: Other Social Determinant of Health Discharge Plan Discharge Clinical Impression: Suicidal ideation, Depression, Acute hypokalemia, Alcohol abuse Patient Disposition: Still a Patient Prescriptions: No Action Enbrel SureClick 50 mg/mL (1 mL) pen injector 1 ml subcut QWEEK
[2022-05-30 00:09] LABS: Alanine Aminotransferase 24 U/L (0-31); Albumin Level 3.4 g/dL (3.5-5.0); Alkaline Phosphatase 61 U/L (39-117); Anion Gap 20 (12-20); Aspartate Amino Transferase 45 U/L (5-31); Bilirubin Total 1.1 mg/dL (0.0-1.0); Blood Urea Nitrogen 10 mg/dL (9-16); Calcium 8.4 mg/dL (8.4-10.2); Carbon Dioxide 24 mmol/L (22-29); Chloride 104 mmol/L (96-108); Creatinine Clr Calc Pharmacy 69.5; Estimated Glomerular Filt Rate > 60; Ethanol 385 mg/dL; Glucose Random 136 mg/dL (60-115); Sodium 145 mmol/L (135-145); Total Protein 5.6 g/dL (6.5-8.0)
[2022-05-30 00:13] LABS: Basophils Percent Auto 0.7 % (0-2); Eosinophils Percent Auto 0.4 % (0-4); Hematocrit 31.3 % (37.0-47.0); Hemoglobin 10.8 g/dl (12.0-16.0); Imm Gran Abs Auto 0.02 X10*3/uL (0.00-0.03); Imm Gran Pct Auto 0.4 % (0.0-0.4); Lymphocytes Absolute Auto 3.3 X10*3/uL (1.2-4.9); Lymphocytes Percent Auto 61.8 % (20-40); MANUAL DIFF FLAG SCAN; Mean Corpuscular HGB Conc 34.5 g/dl (31.0-35.0); Mean Corpuscular Hemoglobin 38.4 pg (27.0-33.0); Mean Platelet Volume 10.2 fL (9.4-12.3); Monocytes Absolute Auto 0.4 X10*3/uL (0.1-1.2); Monocytes Percent Auto 6.7 % (2-11); Neutrophils Absolute Auto 1.6 x10*3/uL (2.0-8.3); Red Blood Count 2.81 X10*6/uL (4.20-5.50); Red Cell Distribution Width 13.7 % (11.0-16.0); SCAN SMEAR FLAG 1; White Blood Count 5.3 X10*3/uL (4.8-10.8)
[2022-05-30 00:14] LABS: Mean Corpuscular Volume 111.4 fL (80.0-98.0); Platelet Count 79 X10*3/uL (160-400)
[2022-05-30] MEDS: LORazepam 1 MG TABLET 2 MG PO (00:23)
--- NOTE | 2022-05-30 00:29 | PC.NURSE ---
pt asked this rn for something to help her calm down this rn spoke with abelardo patrick regarding pt request. abelardo patrick gave verbal order with read back for 2mg ativan po. order placed. pt medicated according to may. 1:[address]
[2022-05-30 00:42] LABS: SLIDE REVIEW VERIFIED
--- NOTE | 2022-05-30 01:29 | PC.NURSE ---
1:[address] at this time. pt resting on stretcher after being provided with [place]. pt appears to have decrease in anxiety since po ativan was given
[2022-05-30] MEDS: Potassium Chloride ER 20 MEQ TAB.ER.PRT 40 MEQ PO (02:17)
[2022-05-30] MEDS: Diphth,Pertus(ACell),Tet Adult 0.5 ML SYRINGE IM (02:20)
--- NOTE | 2022-05-30 04:08 | PC.NURSE ---
this rn assisted pt via wheelchair to restroom. obtained urine sample at this time. pt gait unsteady during transfer. this rn and operator automated process assisted pt back onto stretcher. 1:[address] at this time
[2022-05-30 04:16] LABS: Appearance Urine Clear; Color Urine Yellow; Glucose Urine UA Negative (Negative); Leukocyte Esterase Urine Negative (Negative); Nitrite Urine Negative (Negative); Specific Gravity - Urine 1.015 (1.005-1.025); Urine Blood Negative (Negative); Urine Ketones Negative (Negative); Urine Protein Negative (Neg-Trace)
[2022-05-30 04:27] VITALS: BP 118/60; PULSE 95; RESP 18; TEMP 36.7; O2SAT 98
[2022-05-30 04:27] LABS: Amphetamine Screen Urine Not Detected (Not Detect); Barbiturates, Urine Not Detected (Not Detect); Benzodiazepines Screen Urine Not Detected (Not Detect); Cannabinoid Screen Urine Not Detected (Not Detect); Cocaine Screen Urine Not Detected (Not Detect); Fentanyl, urine Not Detected (Not Detect); Opiate Screen Urine Not Detected (Not Detect); Phencyclidine Screen Urine Not Detected (Not Detect)
[2022-05-30 07:26] VITALS: BP 122/67; PULSE 104; RESP 16; TEMP 37.6; O2SAT 95
--- NOTE | 2022-05-30 09:16 | PC.NURSE ---
this nurse resumed care of this patient at 915 am, patient currently sleeping, vital signs previously stable per ismael, 1:1 sitter at bedside for safety, will continue to monitor
--- NOTE | 2022-05-30 11:57 | MHC.CARE ---
Addendum entered by Yesenia Ford [facility] 05/30/22 12:02: CARE team filed elder protective report to follow up with Veronica in community. Original Note: Pt seen by CARE team she is clinically sober, denies suicidal ideation plan or intent and does not meet inpatient level of care currently. Care team made referral to recovery for resources and pt can be discharged home.
[2022-05-30] MEDS: Magnesium Oxide 400 MG TABLET PO (12:39)
[2022-05-30] MEDS: Potassium Chloride Packet 20 MEQ PACKET 40 MEQ PO (12:39)
--- NOTE | 2022-05-30 13:16 | PC.NURSE ---
care team will come get pt when lyft has arrived
--- NOTE | 2022-05-30 13:22 | MHC.RECOVRN ---
Met with pt prior to dc to discuss substance use and desire for treatment. Pt laying on stretcher, sleeping, easily wakes to voice. Pt reports drinking 6 nips daily x too long. Pt requesting to dc home. Pt not interested in ATS/recovery resources or supports at this time. Provided with written information as well as t/w contact information if needed.
== END 2022-05-30 13:30 | disposition home or self-care (01) ==
PROVIDERS: Nurse Practitioner Family; Emergency Provider Internal Medicine
DX: R45.851 Suicidal ideations (principal); F32.A Depression, unspecified; E87.6 Hypokalemia; F10.10 Alcohol abuse, uncomplicated; Y90.8 Blood alcohol level of 240 mg/100 ml or more; S50.812A Abrasion of left forearm, initial encounter; S50.811A Abrasion of right forearm, initial encounter; S00.81XA Abrasion of other part of head, initial encounter; X58.XXXA Exposure to other specified factors, initial encounter; Z72.89 Other problems related to lifestyle; Z63.4 Disappearance and death of family member; F17.200 Nicotine dependence, unspecified, uncomplicated; Y93.9 Activity, unspecified; Y92.9 Unspecified place or not applicable; Y99.9 Unspecified external cause status; Z79.899 Other long term (current) drug therapy
CPT/HCPCS: 36415; 80053; 80307; 81003; 82077; 85025; 90471; 90715; 99284; S9485

== ENCOUNTER 2022-09-07 19:49 | Emergency (ER) | payer MEDICAID, SELFPAY ==
[2022-09-07 19:52] VITALS: BP 109/77; PULSE 99; O2SAT 97
[2022-09-07 19:56] VITALS: BMI 15.6
[2022-09-07 19:57] VITALS: BP 152/66; PULSE 100; RESP 16; TEMP 36.2; O2SAT 95
--- NOTE | 2022-09-07 20:19 | PC.NURSE ---
Security at bedside for changeover.
--- NOTE | 2022-09-07 20:48 | MHC.RECOVSUP ---
? Reason for consult:ETOH o? Current location:ED22H? o? Identified substance use concern:? -? Seeking ATS (detox) -? Support ? Intervention: o? ATS bed search started/completed/in process o? Community resources provided ? Plan: o? Bed search in progress to ? ? Additional information:RC met with this pt and discussed treatment, pt is interested in ATS treatment, RC spoke to [facility] central intake and upon review pt is eligible for a bed for tomorrow morning, please follow up with this pt.
--- NOTE | 2022-09-07 22:04 | ED.ALCOHOL ---
HPI - Alcohol General Chief Complaint: ETOH/Substance Use Stated Complaint: etoh Time Seen by Provider: 09/07/22 20:56 Source: patient and EMS Mode of arrival: EMS History of Present Illness HPI narrative: 62-year-old female with alcohol use disorder is brought in by EMS whom she called and initially requesting detox and reports 6-7 nips since breakfast and states that she drinks daily for several years. Triage note states that patient was seen at [facility] yesterday and initially requested detox and then stated that she wanted to go home. Patient denies any SI/HI and denies any recent falls or trauma Related Data Home Medications Medication Instructions Recorded Confirmed etanercept 50 mg/mL (1 mL) 1 ml subcut QWEEK 01/05/22 01/05/22 subcutaneous pen injector (Enbrel SureClick) Allergies Allergy/AdvReac Type Severity Reaction Status Date / Time No Known Allergies Allergy Verified 09/07/22 19:58 Review of Systems Review of Systems: Pertinent positives and negatives as stated in HPI PMFSH Past Medical History Source: nursing notes reviewed Medical History Alcohol abuse Lupus Social History Social History Alcohol intake: current Alcohol intake frequency: 3 or more drinks per day Alcohol type: hard liquor Patient Tobacco Use Status: Current everyday Tobacco user Advance Directives: No Advance Directives Information Provided: No Physical Exam ED Vital Signs: Vital Signs - 24 hr 09/07/22 19:57 Temperature 97.1 F Pulse Rate 100 Respiratory Rate 16 Blood Pressure 152/66 H Pulse Oximetry 95 Oxygen Delivery Method Room Air BMI result Body Mass Index 15.6 VITAL SIGNS: Reviewed. GENERAL: Well developed, well nourished, in no acute distress. HEAD: Normocephalic/atraumatic EYES: PERRLA, EOMI EARS: Ext canals without abnormality NOSE: Nares patent bilateral OROPHARYNX: no oral lesions noted, posterior pharynx clear NECK: Supple, no adenopathy LUNGS: Normal breath sounds. No adventitious sounds or accessory muscle use. SpO2<95> CARDIOVASCULAR: Regular rate and rhythm without noted murmurs ABDOMEN: Soft, non-tender, non-distended with bowel sounds. MUSCULOSKELETAL: No tenderness, deformities, or effusions noted on gross inspection. EXTREMITIES: No cyanosis, clubbing or edema. SKIN: Inspection of the skin reveals no rashes NEUROLOGIC: Alert and oriented x 4. Strength and sensation to light touch were grossly intact x 4, patient ambulates with a steady gait. Medical Decision Making Medical Decision Making MDM Narrative: 62-year-old female who currently declines any detox at this time, she is otherwise hemodynamically stable, ambulates with a steady gait and was she is to leave as she is no longer interested services. Patient is making her arrangements to go home via taxi cab and is clinically sober for discharge. Discharge Plan Discharge Clinical Impression: Alcohol use disorder Patient Disposition: Home, Self-Care Instructions: Alcohol Use Disorder (ED) Additional Instructions: Please return to the ER for any worsening symptoms or if you wish to pursue alcohol detox. Prescriptions: No Action Enbrel SureClick 50 mg/mL (1 mL) pen injector 1 ml subcut QWEEK
[2022-09-07 22:11] VITALS: BP 122/65; PULSE 75; RESP 16; TEMP 36.9; O2SAT 98
== END 2022-09-07 22:10 | disposition home or self-care (01) ==
PROVIDERS: Emergency Provider Student in an Organized Health Care Education/Training Program
DX: F10.19 Alcohol abuse with unspecified alcohol-induced disorder (principal); Y90.9 Presence of alcohol in blood, level not specified; F17.200 Nicotine dependence, unspecified, uncomplicated
CPT/HCPCS: 99284

== ENCOUNTER 2022-09-18 20:19 | Emergency (ER) | payer MEDICAID, SELFPAY ==
--- NOTE | ~2022-09-18 | XR_ITS ---
EXAMINATION: XR CHEST CLINICAL INFORMATION: Chest pain COMPARISON: None available. TECHNIQUE: Frontal view of the chest was obtained. FINDINGS: No significant abnormality is noted involving the heart, lungs, mediastinum, bony thorax or soft tissues. XR/XR chest 1V IMPRESSION: Unremarkable examination.
--- NOTE | 2022-09-18 20:29 | ECG_ITS ---
Test Reason : CHEST PAIN/ETOH Blood Pressure : / mmHG Vent. Rate : 106 BPM Atrial Rate : 106 BPM P-R Int : 128 ms QRS Dur : 086 ms QT Int : 380 ms P-R-T Axes : 060 012 063 degrees QTc Int : 504 ms Sinus tachycardia Otherwise normal ECG No previous ECGs available Referred By: Generic ED Physician Electronically Signed By:MICHELA KOWALSKI MD
[2022-09-18 20:33] VITALS: BP 114/62; BP 130/68; PULSE 107; PULSE 112; RESP 18; TEMP 37.1; O2SAT 95; O2SAT 97; BMI 16.8
--- OUTSIDE RECORDS SUMMARY | 2022-09-18 20:44 | XMS_ITS | Continuity of Care Document ---
Author Name Unknown Organization [facility] Address [address] [place] [id number]- Care Team Providers Care Unix Manager Name Role Phone Not on Staff, PCP Primary Care Physician Unavail able Encounter [facility] [place] [facility] [place] Date(s): 09/12/22 - 09/12/[address] [id number]- Encounter Diagnosis Alcohol intoxication(Final) - 09/12/22 Discharge Disposition: A-D/C Home Attending Physician: Gutierrez Dixon MD Admitting Physician: Gutierrez Dixon MD Referring Physician: Not on Staff, Referring MD Allergies, Adverse Reactions, Alerts No Known Allergies Immunizations Not Given Vaccine Date Status Refusal Reason pneumococcal 23-valent vaccine 05/05/19 Not Given Patient Refuses Medications acetaminophen 325 mg oral capsule 2 capsule = 650 mg, By Mouth, Every 4 hours, PRN as needed for pain, # 40 capsule, 0 Refills, Maintenance, 02/16/20 7:58:00 EST, Capsule, [facility], Partial fill upon patient request if the prescription is for a schedule II opioid drug.... Start Date: 02/16/20 Status: Ordered Colace sodium 100 mg oral capsule 100 mg, 1, capsule, By Mouth, 2 times a day, PRN, # 60 capsule, Refills 0, Tot. Refills 0, Maintenance, for constipation, 02/16/20 10:23:00 EST, Route to Pharmacy Electronically, [facility], Partial fill upon patient request if the presc... Start Date: 02/16/20 Status: Ordered etanercept 50 mg/mL subcutaneous solution = 50 mg, Subcutaneous Injection, Every week, every Saturday, # 3.92 mL, 0 Refills, Maintenance, 02/08/20 11:01:00 EST, Solution, Partial fill upon patient request Start Date: 02/08/20 Status: Ordered Ibuprofen 800 mg, By Mouth, Daily, Refills 0, Maintenance, 02/08/20 10:51:00 EST, Partial fill upon patient request Start Date: 02/08/20 Status: Ordered ibuprofen 600 mg oral tablet 600 mg, 1, tablet, By Mouth, Every 6 hours, # 40 tablet, Refills 0, Tot. Refills 0, Maintenance, 02/16/20 7:56:00 EST, Route to Pharmacy Electronically, [facility], Partial fill upon patient request if the prescription is for a schedule... Start Date: 02/16/20 Status: Ordered oxyCODONE 5 mg oral tablet 10 mg, 2, tablet, By Mouth, Every 6 hours, PRN, # 10 tablet, Refills 0, Tot. Refills 0, Maintenance, as needed for pain, 02/19/20 14:02:00 EST, Route to Pharmacy Electronically, [facility] [id number] [id number]), Partial fill upon patient request if th... Start Date: 02/19/20 Status: Ordered Senna 8.6 mg oral tablet 8.6 mg, 1, tablet, By Mouth, 2 times a day, PRN, # 12 tablet, Refills 0, Tot. Refills 0, Maintenance, for constipation, 02/16/20 10:23:00 EST, Route to Pharmacy Electronically, [facility] Tablet, Partial fill upon patient request if the... Start Date: 02/16/20 Status: Ordered Problem List Condition Confirmation Course Effective Dates Status H ealth Status Informant Anemia Confirmed Active Degenerative disc disease, cervical Confirmed Active Lumbar degenerative disc disease Confirmed Active History of sepsis Confirmed Active Lupus Confirmed Active Pancreatitis Confirmed Active Pelvic mass in female Confirmed Active Thrombocytopenia Confirmed Active Follow-up examination after gynecological surgery Confirmed Active Vital Signs Most recent to oldest [Reference Range]: 1 2 3 Oxygen Saturation [94-100 %] 100 % (09/12/22 9:57 PM) 95 % (09/12/22 6:23 PM) 93 % *L* (09/12/22 3:27 PM) Pulse Rate [55-90 bpm] 90 bpm (09/12/22 9:57 PM) 78 bpm (09/12/22 6:23 PM) 95 bpm *H* (09/12/22 3:27 PM) Blood Pressure [90-138/55-84 mm Hg] 105/61mm Hg (09/12/22 9:57 PM) 108/67mm Hg (09/12/22 6:23 PM) 110/66mm Hg (09/12/22 3:27 PM) Respiratory Rate [16-30 br/min] 18 br/min (09/12/22 9:57 PM) 16 br/min (09/12/22 6:23 PM) 17 br/min (09/12/22 3:27 PM) Temperature [96.8-100.4 DegF] 97.4 DegF (09/12/22 9:57 PM) 97.9 DegF (09/12/22 3:27 PM) Mode of Delivery (Oxygen) Room air (09/12/22 9:57 PM) Room air (09/12/22 6:23 PM) Room air (09/12/22 3:27 PM) Blood pressure sites Arm, right (09/12/22 9:57 PM) Arm, left (09/12/22 3:27 PM) Temperature Route Oral (09/12/22 9:57 PM) Oral (09/12/22 3:27 PM) Social History Social History Type Response Smoking Status Former smoker, quit more than 30 days ago; Other: 1/2 ppd day for 155-20 years; entered on: 01/28/20 Sex Note * Bridget Cabral DO: PERFORM Event Display: Patient Education Leaflets Authored Date: Alcohol Intoxication ?? [id number] Alcohol Intoxication Alcohol intoxication is very serious. It occurs when you drink alcohol faster than your liver can break it down. Severe intoxication is a medical emergency. It's also called alcohol overdose or alcohol poisoning. It can lead to . Here are some vazquez facts: ??? It can take 10 minutes or more??to start??to??feel the effects of a drink. So it's easy to drink more than you planned. Binge drinking can lead to an alcohol overdose. Binge drinking is having: o5 or more drinks over a short time for men o 4 or more drinks over a short time for women ??? One drink may be more than 1 serving of alcohol. In some cases, a drink can be 2 to 4 servings. This depends on the type of drink. ??? It takes about 1 hour for your body to break down 1 serving of alcohol. If you have more than 1 drink, it can take a few hours or more. ??? People with alcohol abuse disorders are more likely to get alcohol poisoning. But it can happen to anyone who drinks too much alcohol. Even a first-time drinker is at risk. ??? Many things affect how drinks will affect you. These include: o If you've eaten o How fast you drink o Your weight o How much you normally drink (or not)o Medicines you are taking o If you have a chronic disease o If you are male or female o How old you are Symptoms of alcohol intoxication Mild intoxication ??? Feel more relaxed, less tense ??? Slightly slurred speech ??? Sleepiness ??? Poor motor skills Moderate intoxication ??? Changing behavior, aggression, depression ??? Poor judgment ??? Confusion ??? Trouble focusing ??? Poor balance and coordination ??? Worsening slurred speech Severe intoxication ??? Vomiting ??? Seizures ??? Fainting or passing out (unconscious) ??? Cold, clammy skin ??? Slow or irregular breathing ??? Low body temperature (hypothermia) ??? Coma ?? Health effects Alcohol causes health problems.??This can happen after only drinking a little. There is no set number of drinks or amount of alcohol that's too much.??How much you drink at one time affects your health. And so does drinking often. Alcohol affects your whole body in these ways: ??? Brain.??Alcohol can harm parts of the brain that affect your balance, memory, thinking, and feelings. It can cause memory loss, blackouts, depression, agitation, sleep cycle changes, and seizures. These changes may or may not go away. ??? Heart and vascular system.??Alcohol can damage heart muscle. This can cause the heart muscle to weaken and stretch (cardiomyopathy). This can lead to: o Trouble breathing o Irregular heartbeat o Atrial fibrillation o Leg swelling o Heart failure Alcohol also makes the blood vessels stiffen. This causes high blood pressure. All of these problems raise your risk for heart attacks or strokes. ??? Liver.??Alcohol causes fat to build up in the liver. This affects how the liver works. And it raises the risk for hepatitis. This condition leads to belly pain, appetite loss, yellow skin and eyes (jaundice), and bleeding problems. It also leads to harmful changes in the liver. These include??liver fibrosis and cirrhosis. This can affect your ability to fight off infections. These liver changes stop it from removing toxins in your blood. This can cause a brain disease called encephalopathy. ??? Pancreas.??Alcohol can cause inflammation of the pancreas (pancreatitis). It can lead to belly pain, fever, and diabetes. ??? Immune system.??Alcohol weakens your immune system. This makes it harder to fight off infections and colds. You'll also have a higherrisk of some infections. ??? Cancer risk.??Alcohol raises your risk of some types of cancer. They include cancer of the: o Mouth o Esophagus o Pharynx o Larynx o Liver o Breast ? Sexual function.??Alcohol abuse can also lead to sexual problems. There is no safe level of alcohol use for people who are or thinking of getting . Alcohol use in may cause lifelong harm to the baby. So alcohol should be avoided. It can also cause a group of defects called alcohol spectrum disorder. These defects can include physical problems. And also behavior and learning problems. ?? Home care for alcohol intoxication Follow these tips to care for yourself at home: ??? Don't drink any more alcohol. ??? Don't drive??until all effects of the alcohol have worn off. ??? Don't use machinery that can cause injuries. ??? Get lots of rest over the next few days. ??? Drink plenty of water and other drinks that don't have alcohol. ??? Try to eat regular meals. If you have been drinking a lot every day, you may have alcohol withdrawal. Symptoms often last 3 to 4 days. They may include: ??? Nervousness ??? Shakiness ??? Nausea ??? Sweating ??? Sleeplessness They may also include severe, life-threatening symptoms. These are known as delirium tremens (DTs).DTs typically begin between 48 and 96 hours after the last drink and last 1 to 5 days. They include: ??? Seizures ??? Confusion ??? Seeing or hearing things that are not there (hallucinations) Alcohol withdrawal can cause . Call your healthcare provider before you stop drinking. This isespecially important if you've had DTs during past alcohol withdrawals. They may be able to help you with medicine. They can also refer you to an inpatient detox program. Or stay with family or friends who know when to call for medical help and can support you. If you have severe symptoms, call your provider or call 911 for help (see below). ?? Follow-up care These groups can help you and your loved one: ??? Alcoholics Anonymous (A.A.). Gives support through a self-help fellowship. ?? Find A.A. meetings near you at www.aa.org. ??? Al-Anon. ?? Gives support to families at www.al-anon.org . Or call 680-039-5945. ??? SMART Recovery ( Self- Management and Recovery Training). A nationwide abstinence-oriented support group for people with addictive issues. This free program is focused on motivation to change, urge control, and living a balanced life. For more information and meetings near you, go to www.2threads.org/ ??? Substance Abuse and Mental Health Services Administration (SAMHSA) Treatment Program Writer. Free information on treatment resources in your area at https://findtreatment.gov/. Or call 028-893-1982. Call 911 Call 911 if any of these occur: ??? Trouble breathing or slow irregular breathing ??? Chest pain ??? Sudden weakness on 1 side of your body or sudden trouble speaking ??? Heavy bleeding or vomiting blood ??? Very sleepy or having trouble waking up ??? Fainting ??? Fast heart rate ??? Seizure ?? When to get medical advice Call your healthcare provider right away if any of these occur: ??? Severe shakiness? Fever of100.4??F (38??C) or higher, or as advised by your provider ??? Confusion or hallucinations ??? Painin your upper belly that gets worse ??? Repeated vomiting ?? Last Reviewed Date: 2021 ?? [id number] [employer]. All rights reserved. This information is not intended as a substitute for professional medical care. Always follow your healthcare professional's instructions. ?? Patient Care team information Care Team Personnel Name: Not on Staff, PCP Position: [facility] Physician (General Medicine) Member Role: PCP Name: Josselyn Doyle RN Position: [facility] RN Member Role: Primary Care Nurse Name: Uzma Yan RN Position: [facility] RN Member Role: Primary Care Nurse Name: Zahra Ramirez RN Position: [facility] RN Member Role: Primary Care Nurse Name: Bridget Cabral DO Position: [facility] Resident Member Role: ED Resident Address: Address: [address] [place] [id number]- Name: Gutierrez Dixon MD Position: [facility] ED Medicine MD Member Role: Admitting Physician Address: Address: [address] [place] [address] [place] [address]- Name: Leslye Manley RN Position: [facility] ED RN W/OE and Tasks Member Role: Patient Care Provider Name: Lauren Yap Position: [facility] ED TA [facility] Care Team Related Persons Name: KEL LOCKE Address: [address] [address]
[2022-09-18 21:02] LABS: Basophils Absolute Auto 0.1 X10*3/uL (0.0-0.2); Basophils Percent Auto 0.4 % (0-2); Eosinophils Percent Auto 0.1 % (0-4); Hematocrit 32.7 % (37.0-47.0); Imm Gran Abs Auto 0.07 X10*3/uL (0.00-0.03); Imm Gran Pct Auto 0.5 % (0.0-0.4); Lymphocytes Absolute Auto 0.7 X10*3/uL (1.2-4.9); Lymphocytes Percent Auto 4.8 % (20-40); MANUAL DIFF FLAG SCAN; Mean Corpuscular HGB Conc 33.6 g/dl (31.0-35.0); Mean Corpuscular Volume 104.1 fL (80.0-98.0); Mean Platelet Volume 8.4 fL (9.4-12.3); Monocytes Absolute Auto 0.2 X10*3/uL (0.1-1.2); Monocytes Percent Auto 1.4 % (2-11); Neutrophils Absolute Auto 12.5 x10*3/uL (2.0-8.3); Neutrophils Percent Auto 92.8 % (45-73); Platelet Count 104 X10*3/uL (160-400); Red Blood Count 3.14 X10*6/uL (4.20-5.50); SCAN SMEAR FLAG 1; White Blood Count 13.5 X10*3/uL (4.8-10.8)
[2022-09-18 21:19] LABS: Anion Gap 25 (12-20); Blood Urea Nitrogen 10 mg/dL (9-16); Calcium 9.3 mg/dL (8.4-10.2); Carbon Dioxide 14 mmol/L (22-29); Chloride 103 mmol/L (96-108); Creatinine Clr Calc Pharmacy 47.3; Estimated Glomerular Filt Rate > 60; Glucose Random 228 mg/dL (60-115); Potassium 3.3 mmol/L (3.3-5.1); Sodium 139 mmol/L (135-145)
[2022-09-18 21:26] LABS: Troponin-I High Sensitivity < 2.7 ng/L (<3.5-17.0)
[2022-09-18 21:27] LABS: SLIDE REVIEW VERIFIED
--- NOTE | 2022-09-18 21:30 | ED.CHESTPAIN ---
HPI - Chest Pain General Chief Complaint: Chest Pain Stated Complaint: etoh, chest pains, per ems Time Seen by Provider: 09/18/22 21:21 Source: patient Mode of arrival: ambulatory Limitations: no limitations History of Present Illness HPI narrative: Patient alcoholic been having sharp chest pain for last 2 days walking in the ER without any disc pain is sharp in character no increasing chest pain on ambulation no shortness of breath Related Data Home Medications Medication Instructions Recorded Confirmed etanercept 50 mg/mL (1 mL) 1 ml subcut QWEEK 01/05/22 01/05/22 subcutaneous pen injector (Enbrel SureClick) Allergies Allergy/AdvReac Type Severity Reaction Status Date / Time No Known Allergies Allergy Verified 09/07/22 19:58 Review of Systems Review of Systems: Yes all other systems are reviewed and are negative [facility] Past Medical History Medical History Alcohol abuse Lupus Social History Social History Alcohol intake: current Alcohol intake frequency: 3 or more drinks per day Alcohol type: hard liquor Patient Tobacco Use Status: Current everyday Tobacco user Advance Directives: No Advance Directives Information Provided: No Physical Exam Vital Signs: Vital Signs: Last Vital Signs Temp 98.7 F 09/18/22 20:33 Pulse 107 H 09/18/22 20:33 Resp 18 09/18/22 20:33 BP 114/62 09/18/22 20:33 Pulse Ox 95 09/18/22 20:33 O2 Del Method Room Air 09/18/22 20:33 BMI result Body Mass Index 16.8 Appearance: Alert. Oriented X3. No acute distress. Eyes: PERRLA, No Nystagmus ENT: Pharynx normal. Oral Mucosa moist Neck: Normal inspection. Neck supple. CVS: Normal heart rate and rhythm. Pulses normal. Respiratory: No respiratory distress. Equal air entry bilateral, no wheezing/rales/rhonchi Abdomen: Soft and nontender. Bowel sounds are present, no mass palpable, no CVA tenderness Skin: Skin warm and dry. Normal skin color. Normal skin turgor. Extremities: No lower extremity edema. No calf tenderness Neuro: Oriented X 3. No motor deficit. No sensory deficit.No cerebellar signs , cranial nerves II-XII intact Medical Decision Making Medical Decision Making [facility] Narrative: Patient has atypical chest pain EKG normal, troponin negative chest pain reproducible discharge patient home advised to follow with PCP Lab Data [facility] Lab Attestation statement: I reviewed the patient's lab results. 09/18/22 20:51 09/18/22 20:51 Labs: Lab Results 09/18/22 09/18/22 09/18/22 Range/Units 20:51 20:51 20:51 WBC 13.5 H (4.8-10.8) X10*3/uL RBC 3.14 L (4.20-5.50) X10*6/uL Hgb 11.0 L (12.0-16.0) g/dl Hct 32.7 L (37.0-47.0) % MCV 104.1 H (80.0-98.0) fL MCH 35.0 H (27.0-33.0) pg MCHC 33.6 (31.0-35.0) g/dl RDW 16.0 (11.0-16.0) % Plt Count 104 L D (160-400) X10*3/uL MPV 8.4 L (9.4-12.3) fL Immature Gran % (Auto) 0.5 H (0.0-0.4) % Neut % (Auto) 92.8 H (45-73) % Lymph % (Auto) 4.8 L (20-40) % Rawlins % (Auto) 1.4 L (2-11) % Eos % (Auto) 0.1 (0-4) % Baso % (Auto) 0.4 (0-2) % Lymph # (Auto) 0.7 L (1.2-4.9) X10*3/uL Rawlins # (Auto) 0.2 (0.1-1.2) X10*3/uL Eos # (Auto) 0.0 (0.0-0.4) X10*3/uL Baso # (Auto) 0.1 (0.0-0.2) X10*3/uL Abs Immat Gran (auto) 0.07 H (0.00-0.03) X10*3/uL Absolute Neuts (auto) 12.5 H (2.0-8.3) x10*3/uL Absolute Nucleated RBC 0.000 (0.0-0.012) X10*3/uL Nucleated RBC % (auto) 0.0 (0.0-0.2) /100WBC Smear Tech's Comments VERIFIED Sodium 139 (135-145) mmol/L Potassium 3.3 (3.3-5.1) mmol/L Chloride 103 (96-108) mmol/L Carbon Dioxide 14 L (22-29) mmol/L Anion Gap 25 H (12-20) BUN 10 (9-16) mg/dL Creatinine 0.85 (0.5-1.4) mg/dL Estim Creat Clear Calc 47.3 Estimated GFR > 60 Random Glucose 228 H (60-115) mg/dL Calcium 9.3 D (8.4-10.2) mg/dL Troponin I High Sens < 2.7 (<3.5-17.0) ng/L Independent Interpretation I performed an independent interpretation of an: EKG Interpretation: Sinus tachycardia heart rate 106 beats per minute normal interval normal axis no acute ST-T changes no acute ischemia Discharge Plan Discharge Clinical Impression: Atypical chest pain, Alcohol abuse Patient Disposition: Home, Self-Care Instructions: Abuse of Alcohol (ED), Noncardiac Chest Pain (ED) Additional Instructions: Follow-up with your PCP for further evaluation Stop drinking alcohol Prescriptions: No Action Enbrel SureClick 50 mg/mL (1 mL) pen injector 1 ml subcut QWEEK Interventions: ED Discharge Assessment Last Done: 09/18/22 21:42 Discharge Date/Time: 09/18/22 21:45
== END 2022-09-18 21:45 | disposition home or self-care (01) ==
PROVIDERS: Emergency Provider Internal Medicine
DX: R07.89 Other chest pain (principal); F10.10 Alcohol abuse, uncomplicated; Y90.9 Presence of alcohol in blood, level not specified; F17.200 Nicotine dependence, unspecified, uncomplicated; M32.9 Systemic lupus erythematosus, unspecified; Z79.899 Other long term (current) drug therapy
CPT/HCPCS: 36415; 71045; 80048; 84484; 85025; 93005; 99282; 99283

== ENCOUNTER → 2022-09-18 20:29 | Outpatient (BNV) | payer MEDICAID, SELFPAY | PROVIDERS: Emergency Provider Internal Medicine; Visit Provider Internal Medicine Cardiovascular Disease | DX: R00.0 Tachycardia, unspecified (principal) | CPT/HCPCS: 93010 ==

== ENCOUNTER 2024-03-08 18:36 | Inpatient (IN) | payer MEDICAID, SELFPAY ==
--- NOTE | ~2024-03-08 | CT_ITS ---
CLINICAL HISTORY: Gi bleed, r o cirrhosis CT abdomen and pelvis without and with contrast, GI bleed protocol. Comparison: None. Indication: GI bleed. Rule out cirrhosis. Findings: Lung bases demonstrate no acute process. The liver demonstrates no suspicious lesion. The gallbladder is distended. The spleen and adrenal glands are unremarkable. The pancreas is diffusely atrophic, fatty replaced and demonstrates coarse calcifications. Small varices are seen along the gastric fundus and lower esophagus. No bowel obstruction or free air. The appendix is normal. There is no blush of contrast within bowel lumen to suggest active GI bleed by CT. Kidneys demonstrate no obstruction. The bladder is distended. No acute osseous finding. Severe atherosclerotic disease noted. Impression: Several small varices are present along the gastric fundus and lower esophagus. No definite active GI bleed by CT. Severe chronic changes of the pancreas. This document has been electronically signed by: Praveen Flores MD on 03/09/2024 06:36:18
[2024-03-08 18:47] VITALS: BP 119/55; BP 122/58; PULSE 79; PULSE 84; RESP 20; O2SAT 100; BMI 16.0
[2024-03-08 19:22] LABS: Glucose, Whole Blood 88 mg/dL (60-115)
--- NOTE | 2024-03-08 20:44 | PC.NURSE ---
Pt. attempted to elope from department, stating she wanted to go home. Patient encouraged to walk back to stretcher, demanded apple juice. When asking why patient called 911 she said all she did was drink a lot of vodka and that EMS convinced her to come to ER and told her that ER could give her a free ride home. Explained to patient that we do not offer free rides. Asked if she had any friends or family to call and pick her up, patient stated she has no friends or family to call. Patient encouraged to enjoy her apple juice and provider will speak to her when they are available. Patient now resting quietly on stretcher.
[2024-03-08 21:32] LABS: MANUAL DIFF FLAG NO
[2024-03-08 21:33] LABS: Basophils Absolute Auto 0.1 X10*3/uL (0.0-0.2); Basophils Percent Auto 1.2 % (0-2); Eosinophils Percent Auto 0.4 % (0-4); Hematocrit 26.4 % (37.0-47.0); Hemoglobin 8.4 g/dl (12.0-16.0); Imm Gran Abs Auto 0.01 X10*3/uL (0.00-0.03); Imm Gran Pct Auto 0.1 % (0.0-0.4); Lymphocytes Absolute Auto 1.2 X10*3/uL (1.2-4.9); Lymphocytes Percent Auto 17.5 % (20-40); Mean Corpuscular HGB Conc 31.8 g/dl (31.0-35.0); Mean Corpuscular Hemoglobin 30.1 pg (27.0-33.0); Mean Corpuscular Volume 94.6 fL (80.0-98.0); Monocytes Absolute Auto 0.5 X10*3/uL (0.1-1.2); Monocytes Percent Auto 7.1 % (2-11); Neutrophils Percent Auto 73.7 % (45-73); Platelet Count 232 X10*3/uL (160-400); Red Blood Count 2.79 X10*6/uL (4.20-5.50); Red Cell Distribution Width 19.9 % (11.0-16.0); White Blood Count 6.8 X10*3/uL (4.8-10.8)
[2024-03-08 21:39] LABS: INTERNATIONAL NORM RATIO 1.1 (0.9-1.1); Prothrombin Time 13.2 SEC (10.9-12.4)
--- NOTE | 2024-03-08 21:46 | ED.ALCOHOL ---
HPI - Alcohol General Chief Complaint: ETOH/Substance Use Stated Complaint: ETOH, Wants to get help getting sober Time Seen by Provider: 03/08/24 21:45 Source: patient and EMS Mode of arrival: EMS Limitations: no limitations History of Present Illness ED Provider: Dr. Charlene Vallejo HPI narrative: Patient comes to the emergency room via ambulance for alcohol intoxication. Initially, patient called EMS asking them to bring her to the emergency room to get help for alcohol abuse. When patient arrived to emergency room, patient states that she no longer wants help.. Patient states that she drank 4 nebs today. Patient denies SI or HI. Patient denies falls or any recent injury. Related Data Home Medications ?Medication ?Instructions ?Recorded ?Confirmed etanercept 50 mg/mL (1 mL) 1 ml subcut QWEEK 01/05/22 01/05/22 subcutaneous pen injector (Enbrel SureClick) Allergies Allergy/AdvReac Type Severity Reaction Status Date / Time No Known Allergies Allergy Verified 03/08/24 18:49 Review of Systems Review of Systems: Constitutional : No Weight loss, No Fever, No Chills, No Night Sweats, No Fatigue, No Malaise ENT/Mouth : No Hearing loss, No Ear Pain, No Nasal Congestion, No Sinus Pain, No Hoarseness, No sore throat, No Rhinorrhea, No Swallowing Difficulty Eyes: No Eye Pain, No Swelling, No Redness, No Foreign Body, No Discharge, No Vision Changes Cardiovascular : No Chest Pain, No SOB, No Dyspnea on Exertion, No Orthopnea, No Edema, No Palpitations Respiratory : No Cough, No Sputum, No Wheezing, No Smoke Exposure, No Dyspnea Gastrointestinal : No Nausea, No Vomiting, No Diarrhea, No Constipation, No abdominal Pain, No Hematochezia, No Melena Genitourinary : no irregular bleeding, No Dysuria, No Urinary Frequency, No Hematuria, No Urinary Incontinence, No Urgency, No Flank Pain, No Urinary Flow Changes, No Hesitancy Musculoskeletal : No joint pain, No Myalgias, No Joint Swelling Skin : No Skin Lesions, No rash Neuro : No Weakness, No Numbness, No Paresthesias, No Loss of Consciousness, No Dizziness, No Headache Psych : No Anxiety/Panic, No Depression, No SI/HI/AH/VH, admits to alcohol abuse and dependence Heme/Lymph: No Bruising, No Bleeding,No Lymphadenopathy Endocrine : No Polyuria, No Polydipsia, No Temperature Intolerance [facility] Past Medical History Medical History Lupus Alcohol abuse Social History Social History Alcohol intake: current Alcohol intake frequency: 3 or more drinks per day Alcohol type: hard liquor Patient Tobacco Use Status: Current everyday Tobacco user Smoked in Last 30 Days: Yes Use of substances other than those prescribed or required for medical reasons: Refusing to respond Advance Directives: No Advance Directives Information Provided: No Physical Exam ED Vital Signs: Vital Signs - 24 hr 03/08/24 18:47 03/09/24 00:50 Temperature 100.2 F Pulse Rate 79 113 H Respiratory Rate 20 16 Blood Pressure 119/55 L 137/55 L Pulse Oximetry 100 94 Oxygen Delivery Method Room Air Room Air BMI result Body Mass Index 16.0 Const Other: Appearance: Alert. Oriented X3. No acute distress. Patient is coherent, still seems a bit intoxicated. Eyes: Pupils equal, round and reactive to light. ENT: Pharynx normal. Neck: Normal inspection. Neck supple. No lymph nodes noted. No crepitus CVS: Normal heart rate and rhythm. Pulses normal. Normal S1 and S2 Respiratory: No respiratory distress. Breath sounds normal. No Wheezing. No rales Abdomen: Soft and nontender. No rigidity. No distention. Skin: Skin warm and dry. Normal skin color. Normal skin turgor. Extremities: No lower extremity edema. No Lacerations. No Rash Neuro: Oriented X 3. No motor deficit. No sensory deficit. Moving all extremities. Slightly slurred speech, patient is intoxicated, CN 2 through 12 grossly intact Psych: calm, cooperative Course Course Course Narrative: Patient reports no fall All of patient's labs pending When patient becomes a bit more sober, we will reassess if she wants detox or not. Patient is not SI or HI, no indication for Section 12 Medical Decision Making Medical Decision Making MDM Narrative: My interpretation of labs: Patient's hemoglobin is 8.4, lower than patient's hemoglobin about a year and a half ago which was 11. Patient denies black stools. Patient states that she is known to be anemic. Patient states that it has been a long time since she has been seen by a primary care physician or rn coronary care unit and patient states that currently she does not have either. A guaiac test is positive. I reviewed the patient's lab work with the patient. Patient states that the would explain why she has been feeling so tired in the last few months. Patient states that she has had anemia in the past and has had blood transfusions. I discussed with the patient that ideally we should give her 1 unit and get her admitted for GI consult and possible scoping. Patient agrees with plan. I discussed with the patient the risks versus benefits of a blood transfusion, patient decided to proceed with the transfusion. Consent signed I discussed the patient with Dr. Long from the medicine team, patient being admitted Differential Diagnosis Differential Diagnoses: The differential diagnosis associated with the presentation includes (Alcohol intoxication, upper GI, lower GI bleed) Admission/Observation Consideration of admission/observation: Escalation of care including admission/observation considered Consult Healthcare Provider Management of the patient was discussed with: Hospitalist Lab Data MDM Lab Attestation statement: I reviewed the patient's lab results. 03/08/24 21:28 03/08/24 21:28 Labs: Lab Results 03/08/24 03/08/24 03/08/24 Range/Units 19:15 21:28 22:17 WBC 6.8 (4.8-10.8) X10*3/uL RBC 2.79 L (4.20-5.50) X10*6/uL Hgb 8.4 L D (12.0-16.0) g/dl Hct 26.4 L (37.0-47.0) % MCV 94.6 (80.0-98.0) fL MCH 30.1 (27.0-33.0) pg MCHC 31.8 (31.0-35.0) g/dl RDW 19.9 H (11.0-16.0) % Plt Count 232 D (160-400) X10*3/uL MPV 9.0 L (9.4-12.3) fL Immature Gran % (Auto) 0.1 (0.0-0.4) % Neut % (Auto) 73.7 H (45-73) % Lymph % (Auto) 17.5 L (20-40) % [place] % (Auto) 7.1 (2-11) % Eos % (Auto) 0.4 (0-4) % Baso % (Auto) 1.2 (0-2) % Lymph # (Auto) 1.2 (1.2-4.9) X10*3/uL [place] # (Auto) 0.5 (0.1-1.2) X10*3/uL Eos # (Auto) 0.0 (0.0-0.4) X10*3/uL Baso # (Auto) 0.1 (0.0-0.2) X10*3/uL Abs Immat Gran (auto) 0.01 (0.00-0.03) X10*3/uL Absolute Neuts (auto) 5.0 (2.0-8.3) x10*3/uL Absolute Nucleated RBC 0.000 (0.0-0.012) X10*3/uL Nucleated RBC % (auto) 0.0 (0.0-0.2) /100WBC PT 13.2 H (10.9-12.4) SEC INR 1.1 (0.9-1.1) Sodium 141 (135-145) mmol/L Potassium 3.6 (3.3-5.1) mmol/L Chloride 105 (96-108) mmol/L Carbon Dioxide 16 L (22-29) mmol/L Anion Gap 24 H (12-20) BUN 11 (9-16) mg/dL Creatinine 0.88 (0.5-1.4) mg/dL Estim Creat Clear Calc 45.6 Estimated GFR > 60 POC Glucose 88 (60-115) mg/dL Random Glucose 273 H (60-115) mg/dL Calcium 8.8 (8.4-10.2) mg/dL Magnesium 1.6 (1.6-2.6) mg/dL Urine Color Yellow Urine Appearance Cloudy Urine pH 5.0 (5.0-9.0) Ur Specific [place] 1.010 (1.005-1.025) Urine Protein Negative (Neg-Trace) mg/dL Urine Glucose (UA) Negative (Negative) mg/dL Urine Ketones Trace (Negative) mg/dL Urine Blood Small (1+) H (Negative) Urine Nitrite Negative (Negative) Ur Leukocyte Esterase Trace H (Negative) Urine RBC 0-2 (0-2) /HPF Urine WBC 0-5 (0-5) /HPF Ur Squamous Epith Cells >20 (0-2) /HPF Urine Bacteria 4+ (None Seen) Hyaline Casts 0-2 (0-2) /LPF Stool Occult Blood (NEGATIVE) Salicylates < 5.0 L (15-30) mg/dL Urine Opiates Screen Not Detected (Not Detect) Ur Buprenorphine Scrn Not Detected (Not Detect) ng/mL Ur Oxycodone Screen Not Detected (Not Detect) ng/mL Urine Methadone Screen Not Detected (Not Detect) ng/mL Urine Fentanyl Screen Not Detected (Not Detect) Ur Barbiturates Screen Not Detected (Not Detect) Ur Phencyclidine Scrn Not Detected (Not Detect) Ur Amphetamines Screen Not Detected (Not Detect) U Benzodiazepines Scrn Not Detected (Not Detect) Urine Cocaine Screen Not Detected (Not Detect) U Marijuana (THC) Screen Not Detected (Not Detect) Ethyl Alcohol 203 mg/dL 03/09/24 Range/Units 02:16 WBC (4.8-10.8) X10*3/uL RBC (4.20-5.50) X10*6/uL Hgb (12.0-16.0) g/dl Hct (37.0-47.0) % MCV (80.0-98.0) fL MCH (27.0-33.0) pg MCHC (31.0-35.0) g/dl RDW (11.0-16.0) % Plt Count (160-400) X10*3/uL MPV (9.4-12.3) fL Immature Gran % (Auto) (0.0-0.4) % Neut % (Auto) (45-73) % Lymph % (Auto) (20-40) % [place] % (Auto) (2-11) % Eos % (Auto) (0-4) % Baso % (Auto) (0-2) % Lymph # (Auto) (1.2-4.9) X10*3/uL [place] # (Auto) (0.1-1.2) X10*3/uL Eos # (Auto) (0.0-0.4) X10*3/uL Baso # (Auto) (0.0-0.2) X10*3/uL Abs Immat Gran (auto) (0.00-0.03) X10*3/uL Absolute Neuts (auto) (2.0-8.3) x10*3/uL Absolute Nucleated RBC (0.0-0.012) X10*3/uL Nucleated RBC % (auto) (0.0-0.2) /100WBC PT (10.9-12.4) SEC INR (0.9-1.1) Sodium (135-145) mmol/L Potassium (3.3-5.1) mmol/L Chloride (96-108) mmol/L Carbon Dioxide (22-29) mmol/L Anion Gap (12-20) BUN (9-16) mg/dL Creatinine (0.5-1.4) mg/dL Estim Creat Clear Calc Estimated GFR POC Glucose (60-115) mg/dL Random Glucose (60-115) mg/dL Calcium (8.4-10.2) mg/dL Magnesium (1.6-2.6) mg/dL Urine Color Urine Appearance Urine pH (5.0-9.0) Ur Specific [place] (1.005-1.025) Urine Protein (Neg-Trace) mg/dL Urine Glucose (UA) (Negative) mg/dL Urine Ketones (Negative) mg/dL Urine Blood (Negative) Urine Nitrite (Negative) Ur Leukocyte Esterase (Negative) Urine RBC (0-2) /HPF Urine WBC (0-5) /HPF Ur Squamous Epith Cells (0-2) /HPF Urine Bacteria (None Seen) Hyaline Casts (0-2) /LPF Stool Occult Blood POSITIVE (NEGATIVE) Salicylates (15-30) mg/dL Urine Opiates Screen (Not Detect) Ur Buprenorphine Scrn (Not Detect) ng/mL Ur Oxycodone Screen (Not Detect) ng/mL Urine Methadone Screen (Not Detect) ng/mL Urine Fentanyl Screen (Not Detect) Ur Barbiturates Screen (Not Detect) Ur Phencyclidine Scrn (Not Detect) Ur Amphetamines Screen (Not Detect) U Benzodiazepines Scrn (Not Detect) Urine Cocaine Screen (Not Detect) U Marijuana (THC) Screen (Not Detect) Ethyl Alcohol mg/dL Critical Care Time Critical Care Time Critical Care Time: Yes Total Critical Care Time: 75 Attestation: I have personally provided critical care time. Time includes review of lab data, radiology results, discussion with consultants, and monitoring for potential decompensation. Intervention performed as documented. Discharge Plan Discharge Clinical Impression: Alcoholic intoxication, GI bleed, Anemia Patient Disposition: Admitted As Inpatient Prescriptions: No Action Enbrel SureClick 50 mg/mL (1 mL) pen injector 1 ml subcut QWEEK Print Language: Estonian
[2024-03-08 21:57] LABS: Anion Gap 24 (12-20); Blood Urea Nitrogen 11 mg/dL (9-16); Calcium 8.8 mg/dL (8.4-10.2); Carbon Dioxide 16 mmol/L (22-29); Chloride 105 mmol/L (96-108); Creatinine Clr Calc Pharmacy 45.6; Estimated Glomerular Filt Rate > 60; Ethanol 203 mg/dL; Glucose Random 273 mg/dL (60-115); Magnesium 1.6 mg/dL (1.6-2.6); Potassium 3.6 mmol/L (3.3-5.1); Salicylate < 5.0 mg/dL (15-30); Sodium 141 mmol/L (135-145)
[2024-03-08 22:24] LABS: Appearance Urine Cloudy; Color Urine Yellow; Glucose Urine UA Negative (Negative); Leukocyte Esterase Urine Trace (Negative); Nitrite Urine Negative (Negative); UMIC TRIGGER UACC YES; Urine Blood Small (1+) (Negative); Urine Ketones Trace mg/dL (Negative); Urine Protein Negative (Neg-Trace)
[2024-03-08 22:33] LABS: Bacteria Urine 4+ (None Seen); Hyaline Casts Urine 0-2 /LPF (0-2); RBC Urine 0-2 /HPF (0-2); Squamous Epithelial Cell Urine >20 /HPF (0-2); WBC Urine 0-5 /HPF (0-5)
[2024-03-08 22:34] LABS: Amphetamine Screen Urine Not Detected (Not Detect); Barbiturates, Urine Not Detected (Not Detect); Benzodiazepines Screen Urine Not Detected (Not Detect); Buprenorphine Scr Not Detected (Not Detect); Cannabinoid Screen Urine Not Detected (Not Detect); Cocaine Screen Urine Not Detected (Not Detect); Fentanyl, urine Not Detected (Not Detect); Methadone Screen, Urine Not Detected (Not Detect); Opiate Screen Urine Not Detected (Not Detect); Oxycodone Screen Urine Not Detected (Not Detect); Phencyclidine Screen Urine Not Detected (Not Detect)
[2024-03-09] VITALS (11 sets, daily range): BP systolic 97–143; BP diastolic 38–66; PULSE 77–113; RESP 16–20; TEMP 36.3–37.9; O2SAT 94–100
[2024-03-09 02:20] LABS: OBS Int Ctl Valid YES; OBS1 POSITIVE (NEGATIVE)
--- NOTE | 2024-03-09 06:20 | PM.IMHP ---
History of Present Illness Date of Service: 03/09/24 Attending physician on admission: Philippe Long Chief Complaint: wants to withdrawal from etoh Patient is a 63-year-old female with a past medical history significant for insulin-dependent diabetes who presents to the ED today with a desire to withdrawal from alcohol. She was reporting weakness, frequent nausea and vomiting without blood, fatigue and frequent diarrhea. She reports the diarrhea has been persistent for months and comes and goes. Is it is variable and how frequent it occurs throughout the day. Occasionally she will have large episodes of bright red blood and denies any tarry stools or melena. She denies any abdominal pain. Her last drink was last night which she reported 4 nips. Review of Systems Constitutional: Constitutional: Denies chills, Reports fatigue and Denies fever(s) Eyes: Eyes: Denies change in vision ENT: Denies nasal congestion, Denies nasal discharge and Denies sore throat Cardiovascular: Cardiovascular: Denies chest pain, Denies rapid heart rate, Denies leg edema, Denies lightheadedness and Denies dyspnea Respiratory: Respiratory: Denies chest congestion, Denies cough, Denies dyspnea and Denies wheezing Gastrointestinal: Gastrointestinal: Reports hematochezia, Reports diarrhea, Reports nausea, Reports vomiting and Denies hematemesis Genitourinary: Genitourinary: Denies dysuria and Denies urinary urgency Musculoskeletal: Musculoskeletal: Denies myalgias Integumentary/Breasts: Skin/Breast: Denies rash Neurologic: Denies confusion Psychiatric: Psychiatric: Denies confusion Endocrine: Endocrine: Reports fatigue Hematologic/Lymphatic: Hematologic/Lymphatic: Denies easy bleeding Allergic/Immunologic: Allergic/Immunologic: Denies wheezing [facility] Medical History Insulin dependent type 1 diabetes mellitus Lupus Alcohol abuse Functional capacity: independent ambulation Social History Alcohol intake: current Alcohol intake frequency: 3 or more drinks per day Alcohol type: hard liquor Patient Tobacco Use Status: Current everyday Tobacco user Smoked in Last 30 Days: Yes Use of substances other than those prescribed or required for medical reasons: Refusing to respond Advance Directives: No Advance Directives Information Provided: No Narrative: no smoking, veriable etoh consumption would no quantify how often or how much. no drug use. Meds Allergies Allergy/AdvReac Type Severity Reaction Status Date / Time No Known Allergies Allergy Verified 03/08/24 18:49 Active Medications: Current Medications Acetaminophen (Acetaminophen 325 Mg Tablet) 650 mg PO Q6H PRN PRN Reason: Pain, Mild 1-3,fever,headache Calcium Carbonate (Calcium Carbonate 750 Mg Tab.Chew) 750 mg PO Q4H PRN PRN Reason: Heartburn Lactated Ringer's (Lr) 1,000 mls @ 999 mls/hr IV .Q1H1M SAVI Stop: 03/09/24 07:00 Thiamine HCl 200 mg/ Sodium (Chloride) 102 mls @ 204 mls/hr IV ONCE ONE Stop: 03/09/24 06:21 Magnesium Hydroxide (Milk Of Magnesia 30 Ml Oral.Susp) 30 ml PO DAILY PRN PRN Reason: Constipation Melatonin (Melatonin 3 Mg Tablet) 6 mg PO BEDTIME PRN PRN Reason: Insomnia Ondansetron HCl (Ondansetron Hcl 4 Mg/2 Ml Vial) 4 mg IVPUSH Q8H PRN PRN Reason: Nausea and Vomiting Pharmacy Consult (Consult Rx Etoh Phenob Im/Po) 1 each MISCELLANE ONCE PRN; Protocol PRN Reason: Consult order Sodium Chloride (0.9 % Sodium Chloride Flush 3 Ml Syringe) 3 ml IVFLUSH QSHIFT [facility] Home Medications ?Medication ?Instructions ?Recorded ?Confirmed ?Last Taken ?Type etanercept 50 mg/mL (1 mL) 1 ml subcut QWEEK 01/05/22 01/05/22 Unknown History subcutaneous pen injector (Enbrel SureClick) Physical Exam Vital Signs and Narrative: Vital Signs: Last Vital Signs Temp 100.2 F 03/09/24 00:50 Pulse 113 H 03/09/24 00:50 Resp 16 03/09/24 00:50 BP 137/55 L 03/09/24 00:50 Pulse Ox 94 03/09/24 00:50 O2 Del Method Room Air 03/09/24 00:50 BMI result Body Mass Index 16.0 General: AOx3, no acute distress Resp: CTA bilaterally CVS: RRR, +murmur GI: +BS, NT, no distention Skin: Warm, dry Neuro: Cranial nerves II-XII grossly intact bilaterally. Motor grossly intact bilaterally Extremities: No LE edema Psych: Intermittently agitated Const: General: No confusion Orientation/consciousness: No confusion Neuro: General: No confusion Results Labs 03/08/24 21:28 03/08/24 21:28 Labs: Laboratory Results - last 24 hr 03/08/24 03/08/24 03/08/24 19:15 21:28 22:17 MCV 94.6 MCH 30.1 MCHC 31.8 RDW 19.9 H Plt Count 232 D MPV 9.0 L Immature Gran % (Auto) 0.1 Neut % (Auto) 73.7 H Lymph % (Auto) 17.5 L [place] % (Auto) 7.1 Eos % (Auto) 0.4 Baso % (Auto) 1.2 Lymph # (Auto) 1.2 [place] # (Auto) 0.5 Eos # (Auto) 0.0 Baso # (Auto) 0.1 Abs Immat Gran (auto) 0.01 Absolute Neuts (auto) 5.0 Absolute Nucleated RBC 0.000 Nucleated RBC % (auto) 0.0 PT 13.2 H INR 1.1 Anion Gap 24 H Estim Creat Clear Calc 45.6 Estimated GFR > 60 POC Glucose 88 Random Glucose 273 H Calcium 8.8 Magnesium 1.6 Urine Color Yellow Urine Appearance Cloudy Urine pH 5.0 Ur Specific [place] 1.010 Urine Protein Negative Urine Glucose (UA) Negative Urine Ketones Trace Urine Blood Small (1+) H Urine Nitrite Negative Ur Leukocyte Esterase Trace H Urine RBC 0-2 Urine WBC 0-5 Ur Squamous Epith Cells >20 Urine Bacteria 4+ Hyaline Casts 0-2 Stool Occult Blood Salicylates < 5.0 L Urine Opiates Screen Not Detected Ur Buprenorphine Scrn Not Detected Ur Oxycodone Screen Not Detected Urine Methadone Screen Not Detected Urine Fentanyl Screen Not Detected Ur Barbiturates Screen Not Detected Ur Phencyclidine Scrn Not Detected Ur Amphetamines Screen Not Detected U Benzodiazepines Scrn Not Detected Urine Cocaine Screen Not Detected U Marijuana (THC) Screen Not Detected Ethyl Alcohol 203 Blood Type Antibody Screen Crossmatch 03/09/24 03/09/24 02:16 04:29 MCV MCH MCHC RDW Plt Count MPV Immature Gran % (Auto) Neut % (Auto) Lymph % (Auto) [place] % (Auto) Eos % (Auto) Baso % (Auto) Lymph # (Auto) [place] # (Auto) Eos # (Auto) Baso # (Auto) Abs Immat Gran (auto) Absolute Neuts (auto) Absolute Nucleated RBC Nucleated RBC % (auto) PT INR Anion Gap Estim Creat Clear Calc Estimated GFR POC Glucose Random Glucose Calcium Magnesium Urine Color Urine Appearance Urine pH Ur Specific [place] Urine Protein Urine Glucose (UA) Urine Ketones Urine Blood Urine Nitrite Ur Leukocyte Esterase Urine RBC Urine WBC Ur Squamous Epith Cells Urine Bacteria Hyaline Casts Stool Occult Blood POSITIVE Salicylates Urine Opiates Screen Ur Buprenorphine Scrn Ur Oxycodone Screen Urine Methadone Screen Urine Fentanyl Screen Ur Barbiturates Screen Ur Phencyclidine Scrn Ur Amphetamines Screen U Benzodiazepines Scrn Urine Cocaine Screen U Marijuana (THC) Screen Ethyl Alcohol Blood Type B Positive Antibody Screen NEGATIVE Crossmatch See Detail Assessment and Plan (1) GI bleed: Status: Acute (2) Anemia: Status: Acute (3) Alcohol abuse: Status: Chronic (4) Alcoholic intoxication: Status: Acute Plan Patient is a 63-year-old female with a past medical history significant for insulin-dependent diabetes who presents to the ED today with a desire to withdrawal from alcohol. Upon further evaluation patient reported symptomatic anemia. Anemia, GI bleed - hemoglobin 8.4, hematocrit 26.4 - positive Hemoccult stool - abdominopelvic CT pending - start IV Protonix - GI consult - NPO pending possible EGD - given 1 unit RBCs in ED - monitor CBC Alcohol abuse, alcohol intoxication - alcohol level 203 - phenobarb protocol - monitor CIWA - folic acid, thiamine, multivitamin - addiction med consult Insulin-dependent diabetes - sliding scale insulin Full code VTE prophylaxis: Pneumoboots, anticoagulant contraindicated due to GI bleed Patient with GI bleed, anemia and alcohol abuse requesting alcohol withdrawal requiring admission for at least 2 midnights stay for monitoring and further evaluation. Quality Stroke Does the patient have a stroke diagnosis?: No VTE Prior VTE?: No VTE Risk Level:: Medical - moderate - high VTE Device Contraindication: N/A - Device Ordered VTE Drug Contraindication: Treatment Not Indicated
[2024-03-09] MEDS: PHENobarbitaL sodium 130 MG/ML IM ONCE 210 MG IM (06:35)
[2024-03-09] MEDS: Pantoprazole Sodium 40 MG/10 ML VIAL 80 MG IVPUSH (06:36)
[2024-03-09] MEDS: Thiamine HCL 200 MG in 0.9 % Sodium Chloride 100 ML 204 MG IV (06:36)
[2024-03-09] MEDS: Lactated Ringers 1,000 ML 999 ML IV (06:36)
[2024-03-09 08:19] LABS: Glucose, Whole Blood 219 mg/dL (60-115)
--- NOTE | 2024-03-09 08:19 | P.CNGI_ITS ---
History of Present Illness Data of Consult Service Date: 03/09/24 Requesting physician: Philippe Long Primary Care Provider: None Physician HPI Reason for consult: anemia 63 YF with insulin-dependent diabetes seen at [facility] on 03/08/24 with a desire to withdrawal from alcohol. Pt reported weakness, frequent nausea and non bloody emesis, fatigue, dizziness and frequent diarrhea. She denies heartburn, dysphagia or abdominal pain and complains of diarrhea for the past several months. Pt notes that the diarrhea comes and goes and can have 4 to 5 BMs a day. Occasionally she will have large episodes of bright red blood and denies any tarry stools or melena. Pt denies smoking and admits to drinking 5-6 nips of Vodka daily - last drink was last night (4 nips). Pt reports having an EGD and a colon ? 5 yrs ago at - (unable to recall the results) - records will be requested. Pt worked as a nurse and retired 3 years ago. She is single, has no children and lives alone. Patient denies known family history of liver disease, alcoholism, colon polyps or GI malignancy. Labs in the ED showed H & H of 8.4 & 26.4 (decreased from 11 & 32.7 in 09/2022), INR of 1.1, LFTs showed TB of 1.1, AST 45, alb 3.4 03/08/[address] SCAN SHOWED: Several small varices are present along the gastric fundus and lower esophagus. No definite active GI bleed by CT. Severe chronic changes of the pancreas. Review of Systems 2 Constitutional: Constitutional: Denies chills, Reports fatigue and Denies fever(s) Eyes: Eyes: Denies change in vision ENT: Denies nasal congestion, Denies nasal discharge and Denies sore throat Cardiovascular: Cardiovascular: Denies chest pain, Denies rapid heart rate, Denies leg edema, Denies lightheadedness and Denies dyspnea Respiratory: Respiratory: Denies chest congestion, Denies cough, Denies dyspnea and Denies wheezing Gastrointestinal: Gastrointestinal: Reports hematochezia, Reports diarrhea, Reports nausea, Reports vomiting and Denies hematemesis Genitourinary: Genitourinary: Denies dysuria and Denies urinary urgency Musculoskeletal: Musculoskeletal: Denies myalgias Integumentary/Breasts: Skin/Breast: Denies rash Neurologic: Denies confusion Psychiatric: Psychiatric: Denies confusion Endocrine: Endocrine: Reports fatigue Hematologic/Lymphatic: Hematologic/Lymphatic: Denies easy bleeding Allergic/Immunologic: Allergic/Immunologic: Denies wheezing PMFSH Past Medical History Medical History Insulin dependent type 1 diabetes mellitus Lupus Alcohol abuse Social History Social History Household Members: None [facility] Are you a primary personal care home administrator to a significant other at home: No Do you presently have visiting nurse or other home services: No Alcohol intake: current Alcohol intake frequency: 3 or more drinks per day Alcohol type: hard liquor Patient Tobacco Use Status: Former Tobacco user Meds Allergies Allergy/AdvReac Type Severity Reaction Status Date / Time No Known Allergies Allergy Verified 03/08/24 18:49 Active Medications: Current Medications Acetaminophen (Acetaminophen 325 Mg Tablet) 650 mg PO Q6H PRN PRN Reason: Pain, Mild 1-3,fever,headache Calcium Carbonate (Calcium Carbonate 750 Mg Tab.Chew) 750 mg PO Q4H PRN PRN Reason: Heartburn Glucose (Glucose Gel 15 Gm Gel..Gram.) 15 gm PO Q15M PRN; Protocol PRN Reason: per Hypoglycemia Standing Ord. Dextrose (D10) 250 mls @ 750 mls/hr IV Q15M PRN; Protocol PRN Reason: per Hypoglycemia Standing Ord. Octreotide Acetate 500 mcg/ (Sodium Chloride) 501 mls @ 50.1 mls/hr IVCONT .Q10H SAVI Insulin Human Lispro (Insulin Lispro 100 Unit/Ml 3 Ml Vial) 0 unit SUBCUT Q6H SAVI; Protocol Magnesium Hydroxide (Milk Of Magnesia 30 Ml Oral.Susp) 30 ml PO DAILY PRN PRN Reason: Constipation Melatonin (Melatonin 3 Mg Tablet) 6 mg PO BEDTIME PRN PRN Reason: Insomnia Ondansetron HCl (Ondansetron Hcl 4 Mg/2 Ml Vial) 4 mg IVPUSH Q8H PRN PRN Reason: Nausea and Vomiting Pharmacy Consult (Consult Rx Etoh Phenob Im/Po) 1 each MISCELLANE ONCE PRN; Protocol PRN Reason: Consult order Phenobarbital (Phenobarbital 30 Mg Tablet) 30 mg PO BID [facility] Stop: 03/11/24 09:01 Phenobarbital (Phenobarbital 15 Mg Tablet) 15 mg PO BID [facility] Stop: 03/13/24 09:01 Phenobarbital (Phenobarbital 15 Mg Tablet) 15 mg PO BEDTIME [facility] Stop: 03/14/24 21:01 Phenobarbital Sodium (Phenobarbital Sodium 130 Mg/Ml Vial Im Q3hx2) 155 mg IM Q3H S[facility]I Stop: 03/09/24 13:01 Sodium Chloride (0.9 % Sodium Chloride Flush 3 Ml Syringe) 3 ml IVFLUSH QSHIFT [facility] Home Medications ?Medication ?Instructions ?Recorded ?Confirmed ?Last Taken ?Type etanercept 50 mg/mL (1 mL) 1 ml subcut WE 01/05/22 03/09/24 03/04/24 History subcutaneous pen injector (Enbrel SureClick) acetaminophen 325 mg tablet 650 mg PO QID PRN Pain 03/09/24 03/09/24 Unknown History (Tylenol) cyanocobalamin (vitamin B-12) 1,000 mcg IM MO 03/09/24 03/09/24 Unknown History 1,000 mcg/mL injection solution insulin glargine 100 unit/mL (3 9 unit subcut BEDTIME 03/09/24 03/09/24 Unknown History mL) subcutaneous pen (Lantus Solostar U-100 Insulin) levothyroxine 50 mcg tablet 50 mcg PO DAILY@0600 03/09/24 03/09/24 Unknown History Physical Exam 2 Vital Signs: Vital Signs: Last Vital Signs Temp 98.3 F 03/09/24 06:39 Pulse 102 H 03/09/24 06:39 Resp 18 03/09/24 06:39 BP 101/63 03/09/24 06:39 Pulse Ox 94 03/09/24 00:50 O2 Del Method Room Air 03/09/24 00:50 BMI result Body Mass Index 16.0 Const: General: ill appearing (Chronically ill-appearing) and other (Pale); No confusion Nutritional Appearance: underweight Orientation/consciousness: N o confusion Limitations: no limitations HEENT: Head: Yes normal to inspection Ears: hearing grossly normal bilaterally Eyes: Sclerae: sclerae normal Pupils: Equal, round and reactive pupils present Neck: Neck: Yes normal visual inspection Chest: Chest palpation & inspection: normal inspection of the chest Resp: Effort & Inspection: normal respiratory effort Auscultation: clear to auscultation bilaterally Cardio: Palpation: normal PMI Rate: regular rate Rhythm: regular rhythm Heart sounds: S1 normal heart sound present, S2 normal heart sound present and no murmurs GI: Palpation (GI): Soft to palpation, nontender and No hepatosplenomegaly present Auscultation: normal bowel sounds Rectal Exam - Female: deferred Skin: General skin exam: no rashes or lesions noted Neuro: General: No confusion Cranial nerves: Yes Equal, round and reactive pupils present Psych: Appearance: grossly normal Mental Status: mental status grossly normal Results Labs 03/08/24 21:28 03/08/24 21:28 Labs: Short CBC 03/08/24 Range/Units 21:28 WBC 6.8 (4.8-10.8) X10*3/uL Hgb 8.4 L D (12.0-16.0) g/dl Hct 26.4 L (37.0-47.0) % Plt Count 232 D (160-400) X10*3/uL BMP 03/08/24 21:28 Sodium 141 Potassium 3.6 Chloride 105 Carbon Dioxide 16 L BUN 11 Creatinine 0.88 Calcium 8.8 Urine 03/08/24 Range/Units 22:17 Urine Color Yellow Urine Appearance Cloudy Urine pH 5.0 (5.0-9.0) Ur Specific [place] 1.010 (1.005-1.025) Urine Protein Negative (Neg-Trace) mg/dL Urine Glucose (UA) Negative (Negative) mg/dL Assessment and Plan (1) Alcohol abuse: Status: Chronic (2) Anemia: Status: Acute (3) GI bleed: Status: Acute Plan 63 YF with insulin-dependent diabetes admitted to [facility] on 03/08/24 with weakness, frequent nausea and non bloody emesis, fatigue, dizziness and frequent diarrhea. Occasionally she will have large episodes of bright red blood and denies any tarry stools or melena. Pt admits to drinking 5-6 nips of Vodka daily - last drink was last night (4 nips). Labs in the ED showed H & H of 8.4 & 26.4 (decreased from 11 & 32.7 in 09/2022), INR of 1.1, LFTs showed TB of 1.1, AST 45, alb 3.4 Acute on chronic anemia likely upper versus LGI source. 03/08/[address] SCAN SHOWED: Several small varices are present along the gastric fundus and lower esophagus. RECOMMENDATIONS: 1. Agree with IV PPI and octreotide infusion and CIWA protocol. 2. Repeat CBC, check hepatitis serologies and iron studies (order placed) 3.. Proceed with upper endoscopy today given concern for esophageal and gastric varices on CT scan. EGD procedure and potential complications including bleeding, perforation, reaction to anesthetic and aspiration were reviewed with the patient. Procedures Date of Service Date of Service: 03/09/24
[2024-03-09] MEDS: Insulin Lispro 100 UNIT/ML 3 ML VIAL SUBCUT (08:24)
[2024-03-09] MEDS: Octreotide Acetate 100 MCG/ML AMPUL 50 MCG IVPUSH (08:24)
--- NOTE | 2024-03-09 08:24 | MHC.EDTECH ---
patient was incontinent of stool x4 cleaned patient up change patient into hospital clothes and bed linen was changed nurse aware.
--- NOTE | 2024-03-09 08:55 | PHA.MEDREC ---
Pharmacy Consult ? Medication Reconciliation Pharmacy has completed the medication reconciliation. Spoke with patient at bedside. Pt said it varies which day of the week she does b12 injections, but had an appotinemtn today (Saturday). She takes her Enbrel on Wednesdays. She states she takes 9 units of Lantus, even though claims show 5 units. Pt denies she is on iron, fludrocortisone, Triphrocaps, vitamin d3, protonix.
--- NOTE | 2024-03-09 09:03 | PC.NURSE ---
Blood was stopped for approx 1/2 hour as patient was incontinent of stool and not changed over to hospital gown.
[2024-03-09] MEDS: 0.9 % Sodium Chloride Flush 3 ML SYRINGE IVFLUSH ×2 (10:43→17:11)
[2024-03-09] MEDS: Octreotide Acetate 500 MCG in 0.9 % Sodium Chloride 500 ML 50.1 MCG IVCONT ×2 (10:43→17:10)
[2024-03-09] MEDS: PHENobarbitaL sodium 130 MG/ML VIAL IM Q3Hx2 155 MG IM ×2 (11:03→17:10)
[2024-03-09 13:18] LABS: Glucose, Whole Blood 54 mg/dL (60-115)
[2024-03-09] MEDS: Dextrose 5 % 250 ML 999 ML IVCONT (13:20)
[2024-03-09] MEDS: Lactated Ringers 1,000 ML 80 ML IVCONT ×2 (13:45→17:19)
[2024-03-09 13:51] LABS: Glucose, Whole Blood 124 mg/dL (60-115)
--- NOTE | 2024-03-09 13:57 | PM.EVENT ---
Event Note Date of Service: 03/09/24 Event Note: The patient planned to get EGD later today monitor H&H continue IV PPI restart diet after EGD GI following Time Spent With Patient Time: Total time managing care of this patient today ____ minutes.
[2024-03-09 14:28] LABS: Hematocrit 27.3 % (37.0-47.0); Hemoglobin 9.1 g/dl (12.0-16.0); Mean Corpuscular HGB Conc 33.3 g/dl (31.0-35.0); Mean Corpuscular Hemoglobin 31.2 pg (27.0-33.0); Mean Corpuscular Volume 93.5 fL (80.0-98.0); Mean Platelet Volume 9.7 fL (9.4-12.3); Platelet Count 119 X10*3/uL (160-400); Red Blood Count 2.92 X10*6/uL (4.20-5.50); Red Cell Distribution Width 18.3 % (11.0-16.0); White Blood Count 4.4 X10*3/uL (4.8-10.8)
[2024-03-09 14:32] LABS: Ethanol < 10 mg/dL; Iron 334 mcg/dL (30-160); Percent Iron Saturation 93 % (15-50); Total Iron Binding Capacity 359 mcg/dL (228-428); Unsaturated Iron Binding < 25 ug/dL
[2024-03-09 14:51] LABS: Ferritin 36 ng/mL (10-250)
[2024-03-09 14:57] LABS: HBc Num1 0.09 S/CO (0.00-0.79); HBsAGNum1 0.34 S/CO (0.00-0.99); Hepatitis B Core Antibody Nonreactive (Nonreactive); Hepatitis B Surface Antigen Negative (Negative); ~HepC Num1 13.58 S/CO (0.00-0.79); ~Hepatitis B Surface Antibody NONREACTIVE (Nonreactive); ~Hepatitis C Antibody Reactive (Nonreactive)
--- NOTE | 2024-03-09 15:18 | P.CONAN_ITS ---
HPI - Anesthesia Eval Consult details Narrative: 63 yo female patient for EGD Blood ETOH yesterday evening on admission 203mg/dL. Repeat today <10 PMFSH Active Problems Active Problems: All Active Problems Alcohol abuse (Chronic) Insulin dependent type 1 diabetes mellitus (Chronic) Anemia (Acute). S/p transfusion 1 unit PRBC this morning GI bleed (Acute) Alcoholic intoxication (Acute) Past Medical History Medical History Insulin dependent type 1 diabetes mellitus Lupus Alcohol abuse Family History Family history of problems with anesthesia: No Surgical History History of Problems with Anesthesia: No Social History Social History Household Members: None [facility] Are you a primary residential care facility manager to a significant other at home: No Do you presently have visiting nurse or other home services: No Alcohol intake: current Alcohol intake frequency: 3 or more drinks per day Alcohol type: hard liquor Patient Tobacco Use Status: Former Tobacco user Meds Allergies Allergy/AdvReac Type Severity Reaction Status Date / Time No Known Allergies Allergy Verified 03/08/24 18:49 Active Medications: Current Medications Acetaminophen (Acetaminophen 325 Mg Tablet) 650 mg PO Q6H PRN PRN Reason: Pain, Mild 1-3,fever,headache Calcium Carbonate (Calcium Carbonate 750 Mg Tab.Chew) 750 mg PO Q4H PRN PRN Reason: Heartburn Glucose (Glucose Gel 15 Gm Gel..Gram.) 15 gm PO Q15M PRN; Protocol PRN Reason: per Hypoglycemia Standing Ord. Dextrose (D10) 250 mls @ 750 mls/hr IV Q15M PRN; Protocol PRN Reason: per Hypoglycemia Standing Ord. Octreotide Acetate 500 mcg/ (Sodium Chloride) 501 mls @ 50.1 mls/hr IVCONT .Q10H SAVI Last Admin: 03/09/24 10:43 Dose: 50 mcg/hr, 50.1 mls/hr Lactated Ringer's (Lr) 1,000 mls @ 80 mls/hr IVCONT .[id number] SAVI Last Admin: 03/09/24 13:45 Dose: 80 mls/hr Insulin Human Lispro (Insulin Lispro 100 Unit/Ml 3 Ml Vial) 0 unit SUBCUT Q6H SAVI; Protocol Last Admin: 03/09/24 13:58 Dose: Not Given Magnesium Hydroxide (Milk Of Magnesia 30 Ml Oral.Susp) 30 ml PO DAILY PRN PRN Reason: Constipation Melatonin (Melatonin 3 Mg Tablet) 6 mg PO BEDTIME PRN PRN Reason: Insomnia Ondansetron HCl (Ondansetron Hcl 4 Mg/2 Ml Vial) 4 mg IVPUSH Q8H PRN PRN Reason: Nausea and Vomiting Pharmacy Consult (Consult Rx Etoh Phenob Im/Po) 1 each MISCELLANE ONCE PRN; Protocol PRN Reason: Consult order Phenobarbital (Phenobarbital 30 Mg Tablet) 30 mg PO BID [facility] Stop: 03/11/24 09:01 Phenobarbital (Phenobarbital 15 Mg Tablet) 15 mg PO BID [facility] Stop: 03/13/24 09:01 Phenobarbital (Phenobarbital 15 Mg Tablet) 15 mg PO BEDTIME [facility] Stop: 03/14/24 21:01 Sodium Chloride (0.9 % Sodium Chloride Flush 3 Ml Syringe) [facility] Last Admin: 03/09/24 10:43 Dose: 3 ml Home Medications ?Medication ?Instructions ?Recorded ?Confirmed ?Last Taken ?Type etanercept 50 mg/mL (1 mL) 1 ml subcut WE 01/05/22 03/09/24 03/04/24 History subcutaneous pen injector (Enbrel SureClick) acetaminophen 325 mg tablet 650 mg PO QID PRN Pain 03/09/24 03/09/24 Unknown History (Tylenol) cyanocobalamin (vitamin B-12) 1,000 mcg IM MO 03/09/24 03/09/24 Unknown History 1,000 mcg/mL injection solution insulin glargine 100 unit/mL (3 9 unit subcut BEDTIME 03/09/24 03/09/24 Unknown History mL) subcutaneous pen (Lantus Solostar U-100 Insulin) levothyroxine 50 mcg tablet 50 mcg PO DAILY@0600 03/09/24 03/09/24 Unknown History Exam Height,Weight and Vital Signs: Height 5 ft 5 in Weight 43.545 kg Last Vital Signs Temp 99 F 03/09/24 12:59 Pulse 98 03/09/24 12:59 Resp 16 03/09/24 12:59 BP 123/66 03/09/24 12:59 Pulse Ox 98 03/09/24 12:59 O2 Del Method Room Air 03/09/24 12:59 Pertinent Lab Results Pertinent Lab Results: Laboratory Tests 03/08/24 03/08/24 03/08/24 19:15 21:28 22:17 WBC 6.8 RBC 2.79 L Hgb 8.4 L D Hct 26.4 L MCV 94.6 MCH 30.1 MCHC 31.8 RDW 19.9 H Plt Count 232 D MPV 9.0 L Immature Gran % (Auto) 0.1 Neut % (Auto) 73.7 H Lymph % (Auto) 17.5 L [place] % (Auto) 7.1 Eos % (Auto) 0.4 Baso % (Auto) 1.2 Lymph # (Auto) 1.2 [place] # (Auto) 0.5 Eos # (Auto) 0.0 Baso # (Auto) 0.1 Abs Immat Gran (auto) 0.01 Absolute Neuts (auto) 5.0 Absolute Nucleated RBC 0.000 Nucleated RBC % (auto) 0.0 PT 13.2 H INR 1.1 Sodium 141 Potassium 3.6 Chloride 105 Carbon Dioxide 16 L Anion Gap 24 H BUN 11 Creatinine 0.88 Estim Creat Clear Calc 45.6 Estimated GFR > 60 POC Glucose 88 Random Glucose 273 H Calcium 8.8 Magnesium 1.6 Iron TIBC % Saturation Unsat Iron Binding Ferritin Urine Color Yellow Urine Appearance Cloudy Urine pH 5.0 Ur Specific [place] 1.010 Urine Protein Negative Urine Glucose (UA) Negative Urine Ketones Trace Urine Blood Small (1+) H Urine Nitrite Negative Ur Leukocyte Esterase Trace H Urine RBC 0-2 Urine WBC 0-5 Ur Squamous Epith Cells >20 Urine Bacteria 4+ Hyaline Casts 0-2 Stool Occult Blood Salicylates < 5.0 L Urine Opiates Screen Not Detected Ur Buprenorphine Scrn Not Detected Ur Oxycodone Screen Not Detected Urine Methadone Screen Not Detected Urine Fentanyl Screen Not Detected Ur Barbiturates Screen Not Detected Ur Phencyclidine Scrn Not Detected Ur Amphetamines Screen Not Detected U Benzodiazepines Scrn Not Detected Urine Cocaine Screen Not Detected U Marijuana (THC) Screen Not Detected Ethyl Alcohol 203 Hep Bs Antigen Hep Bs Antibody Hep B Core Total Ab Hepatitis C Ab (EIA) Blood Type Antibody Screen Crossmatch 03/09/24 03/09/24 03/09/24 02:16 04:29 08:16 WBC RBC Hgb Hct MCV MCH MCHC RDW Plt Count MPV Immature Gran % (Auto) Neut % (Auto) Lymph % (Auto) [place] % (Auto) Eos % (Auto) Baso % (Auto) Lymph # (Auto) [place] # (Auto) Eos # (Auto) Baso # (Auto) Abs Immat Gran (auto) Absolute Neuts (auto) Absolute Nucleated RBC Nucleated RBC % (auto) PT INR Sodium Potassium Chloride Carbon Dioxide Anion Gap BUN Creatinine Estim Creat Clear Calc Estimated GFR POC Glucose 219 H Random Glucose Calcium Magnesium Iron TIBC % Saturation Unsat Iron Binding Ferritin Urine Color Urine Appearance Urine pH Ur Specific [place] Urine Protein Urine Glucose (UA) Urine Ketones Urine Blood Urine Nitrite Ur Leukocyte Esterase Urine RBC Urine WBC Ur Squamous Epith Cells Urine Bacteria Hyaline Casts Stool Occult Blood POSITIVE Salicylates Urine Opiates Screen Ur Buprenorphine Scrn Ur Oxycodone Screen Urine Methadone Screen Urine Fentanyl Screen Ur Barbiturates Screen Ur Phencyclidine Scrn Ur Amphetamines Screen U Benzodiazepines Scrn Urine Cocaine Screen U Marijuana (THC) Screen Ethyl Alcohol Hep Bs Antigen Hep Bs Antibody Hep B Core Total Ab Hepatitis C Ab (EIA) Blood Type B Positive Antibody Screen NEGATIVE Crossmatch See Detail 03/09/24 03/09/24 03/09/24 13:14 13:47 14:09 WBC 4.4 L RBC 2.92 L Hgb 9.1 L Hct 27.3 L MCV 93.5 MCH 31.2 MCHC 33.3 RDW 18.3 H Plt Count 119 L D MPV 9.7 Immature Gran % (Auto) Neut % (Auto) Lymph % (Auto) [place] % (Auto) Eos % (Auto) Baso % (Auto) Lymph # (Auto) [place] # (Auto) Eos # (Auto) Baso # (Auto) Abs Immat Gran (auto) Absolute Neuts (auto) Absolute Nucleated RBC 0.000 Nucleated RBC % (auto) 0.0 PT INR Sodium Potassium Chloride Carbon Dioxide Anion Gap BUN Creatinine Estim Creat Clear Calc Estimated GFR POC Glucose 54 L* 124 H Random Glucose Calcium Magnesium Iron 334 H TIBC 359 % Saturation 93 H Unsat Iron Binding < 25 Ferritin 36 Urine Color Urine Appearance Urine pH Ur Specific [place] Urine Protein Urine Glucose (UA) Urine Ketones Urine Blood Urine Nitrite Ur Leukocyte Esterase Urine RBC Urine WBC Ur Squamous Epith Cells Urine Bacteria Hyaline Casts Stool Occult Blood Salicylates Urine Opiates Screen Ur Buprenorphine Scrn Ur Oxycodone Screen Urine Methadone Screen Urine Fentanyl Screen Ur Barbiturates Screen Ur Phencyclidine Scrn Ur Amphetamines Screen U Benzodiazepines Scrn Urine Cocaine Screen U Marijuana (THC) Screen Ethyl Alcohol < 10 Hep Bs Antigen Negative Hep Bs Antibody NONREACTIVE Hep B Core Total Ab Nonreactive Hepatitis C Ab (EIA) Reactive H Blood Type Antibody Screen Crossmatch Laboratory Results - last 24 hr 03/08/24 03/08/24 03/08/24 19:15 21:28 22:17 MCV 94.6 MCH 30.1 MCHC 31.8 RDW 19.9 H Plt Count 232 D MPV 9.0 L Immature Gran % (Auto) 0.1 Neut % (Auto) 73.7 H Lymph % (Auto) 17.5 L [place] % (Auto) 7.1 Eos % (Auto) 0.4 Baso % (Auto) 1.2 Lymph # (Auto) 1.2 [place] # (Auto) 0.5 Eos # (Auto) 0.0 Baso # (Auto) 0.1 Abs Immat Gran (auto) 0.01 Absolute Neuts (auto) 5.0 Absolute Nucleated RBC 0.000 Nucleated RBC % (auto) 0.0 PT 13.2 H INR 1.1 Anion Gap 24 H Estim Creat Clear Calc 45.6 Estimated GFR > 60 POC Glucose 88 Random Glucose 273 H Calcium 8.8 Magnesium 1.6 Iron TIBC % Saturation Unsat Iron Binding Ferritin Urine Color Yellow Urine Appearance Cloudy Urine pH 5.0 Ur Specific [place] 1.010 Urine Protein Negative Urine Glucose (UA) Negative Urine Ketones Trace Urine Blood Small (1+) H Urine Nitrite Negative Ur Leukocyte Esterase Trace H Urine RBC 0-2 Urine WBC 0-5 Ur Squamous Epith Cells >20 Urine Bacteria 4+ Hyaline Casts 0-2 Stool Occult Blood Salicylates < 5.0 L Urine Opiates Screen Not Detected Ur Buprenorphine Scrn Not Detected Ur Oxycodone Screen Not Detected Urine Methadone Screen Not Detected Urine Fentanyl Screen Not Detected Ur Barbiturates Screen Not Detected Ur Phencyclidine Scrn Not Detected Ur Amphetamines Screen Not Detected U Benzodiazepines Scrn Not Detected Urine Cocaine Screen Not Detected U Marijuana (THC) Screen Not Detected Ethyl Alcohol 203 Hep Bs Antigen Hep Bs Antibody Hep B Core Total Ab Hepatitis C Ab (EIA) Blood Type Antibody Screen Crossmatch 03/09/24 03/09/24 03/09/24 02:16 04:29 08:16 MCV MCH MCHC RDW Plt Count MPV Immature Gran % (Auto) Neut % (Auto) Lymph % (Auto) [place] % (Auto) Eos % (Auto) Baso % (Auto) Lymph # (Auto) [place] # (Auto) Eos # (Auto) Baso # (Auto) Abs Immat Gran (auto) Absolute Neuts (auto) Absolute Nucleated RBC Nucleated RBC % (auto) PT INR Anion Gap Estim Creat Clear Calc Estimated GFR POC Glucose 219 H Random Glucose Calcium Magnesium Iron TIBC % Saturation Unsat Iron Binding Ferritin Urine Color Urine Appearance Urine pH Ur Specific [place] Urine Protein Urine Glucose (UA) Urine Ketones Urine Blood Urine Nitrite Ur Leukocyte Esterase Urine RBC Urine WBC Ur Squamous Epith Cells Urine Bacteria Hyaline Casts Stool Occult Blood POSITIVE Salicylates Urine Opiates Screen Ur Buprenorphine Scrn Ur Oxycodone Screen Urine Methadone Screen Urine Fentanyl Screen Ur Barbiturates Screen Ur Phencyclidine Scrn Ur Amphetamines Screen U Benzodiazepines Scrn Urine Cocaine Screen U Marijuana (THC) Screen Ethyl Alcohol Hep Bs Antigen Hep Bs Antibody Hep B Core Total Ab Hepatitis C Ab (EIA) Blood Type B Positive Antibody Screen NEGATIVE Crossmatch See Detail 03/09/24 03/09/24 03/09/24 13:14 13:47 14:09 MCV 93.5 MCH 31.2 MCHC 33.3 RDW 18.3 H Plt Count 119 L D MPV 9.7 Immature Gran % (Auto) Neut % (Auto) Lymph % (Auto) [place] % (Auto) Eos % (Auto) Baso % (Auto) Lymph # (Auto) [place] # (Auto) Eos # (Auto) Baso # (Auto) Abs Immat Gran (auto) Absolute Neuts (auto) Absolute Nucleated RBC 0.000 Nucleated RBC % (auto) 0.0 PT INR Anion Gap Estim Creat Clear Calc Estimated GFR POC Glucose 54 L* 124 H Random Glucose Calcium Magnesium Iron 334 H TIBC 359 % Saturation 93 H Unsat Iron Binding < 25 Ferritin 36 Urine Color Urine Appearance Urine pH Ur Specific [place] Urine Protein Urine Glucose (UA) Urine Ketones Urine Blood Urine Nitrite Ur Leukocyte Esterase Urine RBC Urine WBC Ur Squamous Epith Cells Urine Bacteria Hyaline Casts Stool Occult Blood Salicylates Urine Opiates Screen Ur Buprenorphine Scrn Ur Oxycodone Screen Urine Methadone Screen Urine Fentanyl Screen Ur Barbiturates Screen Ur Phencyclidine Scrn Ur Amphetamines Screen U Benzodiazepines Scrn Urine Cocaine Screen U Marijuana (THC) Screen Ethyl Alcohol < 10 Hep Bs Antigen Negative Hep Bs Antibody NONREACTIVE Hep B Core Total Ab Nonreactive Hepatitis C Ab (EIA) Reactive H Blood Type Antibody Screen Crossmatch Airway Mallampati Class: III (Small mouth opening) TM Dist: >3cm Neck ROM: Full Loose/Missing/Broken Teeth: No (Denies broken, loose, missing teeth) Heart: RRR Lungs: CTAB Assessment and Plan Assessment Anesthesia Assessment: Anesthesia Plan Discussed and Chart Reviewed Final Anesthetic Review Family History of Problems with Anesthesia: No History of Problems with Anesthesia: No NPO: Yes ASA Class: III and Emergency Final Preanesthetic Review: No Changes in Pt Med Stat, Meds/Allgs Chart Reviewed, Consent Obtained/Reviewed and Anes Risks/Benef Reviewed Patient Risk: Intermediate Procedure Risk: Low Assessment/Block/Sedation in SS: Assess/Block/Sedation-SS Anesthetic Plan Anesthetic Plan: TIVA Disposition: Standard PACU
--- NOTE | 2024-03-09 15:52 | W.PM.OPN ---
Operative Note Operative Note Date of Service: 03/09/24 Narrative: FLEXIBLE TRANSORAL UPPER GASTROINTESTINAL ENDOSCOPY WITH BIOPSIES Pre-op diagnosis: Anemia, GI bleeding Post-op diagnosis: Small esophageal varices, Gastritis, portal hypertensive gastropathy Endoscopist:? Newton Stack MD Anesthesia:?MAC UPPER ENDOSCOPY Consent: Indications for the procedure and potential complications of bleeding, perforation, reaction to medications and missed diagnosis were discussed with the patient and informed consent was obtained. Instrument: Olympus GIF H 190 mid size upper endoscope Monitoring: Vital signs and clinical assessment, continuous EKG monitoring, Pulse oximetry, Carbon Dioxide monitoring and blood pressure monitoring were done throughout the procedure. Procedure: The patient was placed in the left lateral decubitis position and pre-procedure medications were administered and a bite block was placed. The endoscope was inserted into the mouth and advanced under direct vision to the third part of duodenum. A careful inspection was made as the upper endoscope was withdrawn including a retroflexed examination of the proximal stomach; Findings and interventions are described below. Findings: Larynx: Normal Esophagus: GE junction at 35 cms. Friable mucosa - biopsies were obtained from proximal esophagus to check for EOE. Grade 1-2 four column varices from 30 to 35 cms which flattened with insufflation and without high risk stigmata for bleeding Stomach: Moderate portal hypertensive gastropathy with antral erythema - biopsies were obtained from the antrum. Edematous folds versus gastric varices without stigmata of bleeding on retroflexed examination of the cardia. Duodenum: Normal bulb and descending duodenum. Biopsies were obtained from 3rd part of the duodenum to check for celiac sprue Intervention: Biopsies as noted above Impression and Post Procedure Diagnosis: Endoscopy Findings: ESOPHAGUS: Grade 1-2 four column varices from 30 to 35 cms which flattened with insufflation and without high risk stigmata for bleeding STOMACH: Moderate portal hypertensive gastropathy DUODENUM: Normal - biopsied to check for celiac sprue No blood or stigmata of recent bleeding in the upper GI tract Anemia is likely nutritional from poor PO intake Plan: 1. Resume regular diet 2. Follow CBC daily 3. Continue CIWA protocol 4. ETOH Rehab Above findings were reviewed with the patient
[2024-03-09 20:02] LABS: Glucose, Whole Blood 292 mg/dL (60-115)
[2024-03-09] MEDS: PHENobarbitaL 30 MG TABLET PO (20:24)
[2024-03-09 23:51] LABS: Glucose, Whole Blood 242 mg/dL (60-115)
[2024-03-10] MEDS: Insulin Lispro 100 UNIT/ML 3 ML VIAL SUBCUT ×3 (00:04→18:44)
[2024-03-10] MEDS: Octreotide Acetate 500 MCG in 0.9 % Sodium Chloride 500 ML 50.1 MCG IVCONT (02:43)
[2024-03-10 03:29] VITALS: BP 139/63; PULSE 79; RESP 20; TEMP 36.3; O2SAT 97
[2024-03-10 06:23] LABS: Glucose, Whole Blood 182 mg/dL (60-115)
[2024-03-10] MEDS: Lactated Ringers 1,000 ML 80 ML IVCONT (06:24)
[2024-03-10 07:10] VITALS: BP 102/52; PULSE 78; RESP 12; TEMP 36.4; O2SAT 95
[2024-03-10] MEDS: PHENobarbitaL 30 MG TABLET PO ×2 (07:33→20:37)
--- NOTE | 2024-03-10 09:00 | MHC.CM.PN ---
CM met with Patient at bedside. Patient lives alone in an apartment and required no services nor DME RETENTION SPECIALIST. Home self care vs Recovery Team intervention regarding ETOH is the tentative plan and CM has initiated and will follow for dc planning. Patient declined a HCP and refused to reveal the name of her PCP. Patient will need a LYFT to [facility] at time of dc.CM will follow.
--- NOTE | 2024-03-10 10:02 | HO.POSTANES ---
Post Anesthesia Evaluation Post Anesthesia Evaluation Date of Service: 03/10/24 Vital Signs: Vital Signs Temp Pulse Resp BP Pulse Ox O2 Del Method 03/10/24 07:10 97.5 F 78 12 102/52 L 95 Room Air 03/10/24 03:29 97.3 F 79 20 139/63 97 Room Air 03/09/24 23:03 97.4 F 79 18 108/55 L 97 Room Air Anesthesia: Monitored Mental Status: Awake Pain Control: Satisfactory Nausea/Vomiting: None Hydration: Adequate Anesthesia-Related Issues: No Anes. Related Issues
--- NOTE | 2024-03-10 10:29 | MHC.RECOVRN ---
Attempted to meet with pt. following a positive screen for unhealthy alcohol use on admission.? ?Intention was to discuss alcohol use and recovery/support options. Pt declined to meet but did accept a folder with resources including information on inpt. and outpt. treatment, KRISTI, harm reduction and recovery coaching. T/W available as needed.
[2024-03-10 11:19] VITALS: BMI 18.7
[2024-03-10] MEDS: Loperamide HCl 2 MG CAPSULE 4 MG PO (11:24)
[2024-03-10 11:43] VITALS: BP 109/59; PULSE 65; RESP 16; TEMP 36.2; O2SAT 97
[2024-03-10 11:52] LABS: Glucose, Whole Blood 176 mg/dL (60-115)
--- NOTE | 2024-03-10 14:42 | P.PNIM_ITS ---
Subjective Subjective Date of Service: 03/10/24 Interval History: Seen and evaluated this morning reporting diarrhea no fever or chills no signs of withdrawal, CIWA 0 no other events Review of Systems Review of Systems: Yes all other systems are reviewed and are negative Physical Exam 2 Vital Signs: Vital Signs: Last Vital Signs Temp 97.1 F 03/10/24 11:43 Pulse 65 03/10/24 11:43 Resp 16 03/10/24 11:43 BP 109/59 L 03/10/24 11:43 Pulse Ox 97 03/10/24 11:43 O2 Del Method Room Air 03/10/24 11:43 O2 Flow Rate 4 03/09/24 15:53 BMI result Body Mass Index 18.7 Const: Other: Constitutional : interactive, not in distress Cardiovascular : no JVP, no lower extremity edema Respiratory : bilateral chest movement, not in resp distress Gastrointestinal: soft, lax, Non tender Skin : Warm, Dry Neurological : Alert & oriented , No focal deficit Objective Data Active Medications Acetaminophen (Acetaminophen 325 Mg Tablet) 650 mg PO Q6H PRN PRN Reason: Pain, Mild 1-3,fever,headache Calcium Carbonate (Calcium Carbonate 750 Mg Tab.Chew) 750 mg PO Q4H PRN PRN Reason: Heartburn Cyanocobalamin (Cyanocobalamin (Vitamin B-12) 1,000 Mcg/Ml Vial) 1,000 mcg IM MO SAVI Glucose (Glucose Gel 15 Gm Gel..Gram.) 15 gm PO Q15M PRN; Protocol PRN Reason: per Hypoglycemia Standing Ord. Dextrose (D10) 250 mls @ 750 mls/hr IV Q15M PRN; Protocol PRN Reason: per Hypoglycemia Standing Ord. Insulin Human Lispro (Insulin Lispro 100 Unit/Ml 3 Ml Vial) 0 unit SUBCUT Q6H [facility]; Protocol Last Admin: 03/10/24 06:24 Dose: 2 unit Documented By: MAYO Levothyroxine Sodium (Levothyroxine Sodium 50 Mcg Tablet) 50 mcg PO DAILY@0600 [facility] Loperamide HCl (Loperamide Hcl 2 Mg Capsule) 2 mg PO Q4H PRN PRN Reason: Diarrhea Magnesium Hydroxide (Milk Of Magnesia 30 Ml Oral.Susp) 30 ml PO DAILY PRN PRN Reason: Constipation Melatonin (Melatonin 3 Mg Tablet) 6 mg PO BEDTIME PRN PRN Reason: Insomnia Ondansetron HCl (Ondansetron Hcl 4 Mg/2 Ml Vial) 4 mg IVPUSH Q8H PRN PRN Reason: Nausea and Vomiting Pharmacy Consult (Consult Rx Etoh Phenob Im/Po) 1 each MISCELLANE ONCE PRN; Protocol PRN Reason: Consult order Phenobarbital (Phenobarbital 30 Mg Tablet) 30 mg PO BID [facility] Stop: 03/11/24 09:01 Last Admin: 03/10/24 07:33 Dose: 30 mg Documented By: BEL Phenobarbital (Phenobarbital 15 Mg Tablet) 15 mg PO BID [facility] Stop: 03/13/24 09:01 Phenobarbital (Phenobarbital 15 Mg Tablet) 15 mg PO BEDTIME [facility] Stop: 03/14/24 21:01 Sodium Chloride (0.9 % Sodium Chloride Flush 3 Ml Syringe) 3 ml IVFLUSH QSHIFT [facility] Last Admin: 03/10/24 07:34 Dose: Not Given Documented By: BEL Non-Admin Reason: IV Running Labs 03/09/24 14:09 03/08/24 21:28 Labs: Laboratory Results - last 24 hr 03/09/24 03/09/24 03/09/24 14:09 19:57 23:46 POC Glucose 292 H 242 H Ferritin 36 Hep Bs Antigen Negative Hep Bs Antibody NONREACTIVE Hep B Core Total Ab Nonreactive Hepatitis C Ab (EIA) Reactive H 03/10/24 03/10/24 06:17 11:41 POC Glucose 182 H 176 H Ferritin Hep Bs Antigen Hep Bs Antibody Hep B Core Total Ab Hepatitis C Ab (EIA) Assessment and Plan (1) Alcohol abuse: Status: Chronic (2) GI bleed: Status: Acute (3) Alcoholic intoxication: Status: Acute Plan Patient is a 63-year-old female with a past medical history significant for insulin-dependent diabetes who presents to the ED today with a desire to withdrawal from alcohol. Upon further evaluation patient reported symptomatic anemia. acute on chronic blood loss Anemia 2/2 GI bleed Hb stable at 9.1 post [address] Abd, Several small varices are present along the gastric fundus and lower esophagus. Continue IV Protonix GI consult EGD showing Gastritis and varices not bleeding follow CBC advance diet Stool studies PRN Imodium Alcohol abuse, alcohol intoxication On phenobarb protocol folic acid, thiamine, multivitamin addiction med consult Insulin-dependent diabetes sliding scale insulin New diagnosis Hep C pending viral load GI to follow OP Full code VTE prophylaxis: Pneumoboots, Patient with GI bleed, anemia and alcohol abuse w alcohol withdrawal requiring overnight stay for monitoring and further evaluation. Quality Stroke Does the patient have a stroke diagnosis?: No VTE Prior VTE?: No VTE Risk Level:: Medical - moderate - high VTE Device Contraindication: N/A - Device Ordered VTE Drug Contraindication: Treatment Not Indicated
[2024-03-10 15:43] VITALS: O2SAT 97
[2024-03-10 16:00] VITALS: BP 118/65; PULSE 65; RESP 14; TEMP 37; O2SAT 99
[2024-03-10] MEDS: 0.9 % Sodium Chloride Flush 3 ML SYRINGE IVFLUSH ×2 (16:26→20:37)
[2024-03-10] MEDS: Loperamide HCl 2 MG CAPSULE PO (18:31)
[2024-03-10 18:44] LABS: Glucose, Whole Blood 207 mg/dL (60-115)
[2024-03-10 19:55] VITALS: BP 112/60; PULSE 61; RESP 20; TEMP 37.1; O2SAT 98
[2024-03-10 19:57] LABS: Leukocytes Stool Qualitative NEGATIVE (NEGATIVE)
[2024-03-10 23:55] LABS: Glucose, Whole Blood 204 mg/dL (60-115)
[2024-03-11] VITALS: BP 105/54; PULSE 68; RESP 20; TEMP 36.9; O2SAT 95
[2024-03-11] MEDS: Insulin Lispro 100 UNIT/ML 3 ML VIAL SUBCUT (00:05)
[2024-03-11] MEDS: Loperamide HCl 2 MG CAPSULE PO (03:33)
[2024-03-11 04:00] VITALS: BP 99/58; PULSE 66; RESP 20; TEMP 37; O2SAT 97
[2024-03-11] MEDS: Levothyroxine Sodium 50 MCG TABLET PO (05:54)
[2024-03-11 07:10] LABS: Glucose, Whole Blood 143 mg/dL (60-115)
[2024-03-11 08:00] VITALS: BP 113/55; PULSE 58; RESP 18; TEMP 36.8; O2SAT 98
[2024-03-11 08:21] LABS: Basophils Percent Auto 0.2 % (0-2); Eosinophils Percent Auto 0.6 % (0-4); Hematocrit 25.5 % (37.0-47.0); Hemoglobin 8.2 g/dl (12.0-16.0); Imm Gran Abs Auto 0.02 X10*3/uL (0.00-0.03); Imm Gran Pct Auto 0.4 % (0.0-0.4); Lymphocytes Absolute Auto 0.8 X10*3/uL (1.2-4.9); Mean Corpuscular HGB Conc 32.2 g/dl (31.0-35.0); Mean Corpuscular Hemoglobin 30.4 pg (27.0-33.0); Mean Corpuscular Volume 94.4 fL (80.0-98.0); Mean Platelet Volume 9.7 fL (9.4-12.3); Monocytes Absolute Auto 0.2 X10*3/uL (0.1-1.2); Monocytes Percent Auto 5.2 % (2-11); Neutrophils Absolute Auto 3.6 x10*3/uL (2.0-8.3); Neutrophils Percent Auto 76.6 % (45-73); Red Cell Distribution Width 18.3 % (11.0-16.0); White Blood Count 4.7 X10*3/uL (4.8-10.8)
[2024-03-11 08:22] LABS: MANUAL DIFF FLAG SCAN; Platelet Count 88 X10*3/uL (160-400)
[2024-03-11 08:35] LABS: Anion Gap 11 (12-20); Blood Urea Nitrogen 8 mg/dL (9-16); Calcium 7.6 mg/dL (8.4-10.2); Carbon Dioxide 23 mmol/L (22-29); Chloride 106 mmol/L (96-108); Creatinine Clr Calc Pharmacy 58.9; Estimated Glomerular Filt Rate > 60; Glucose Random 203 mg/dL (60-115); Potassium 3.8 mmol/L (3.3-5.1); Sodium 136 mmol/L (135-145)
[2024-03-11] MEDS: PHENobarbitaL 30 MG TABLET PO (08:48)
[2024-03-11] MEDS: Folic Acid 1 MG TABLET PO (08:48)
[2024-03-11] MEDS: 0.9 % Sodium Chloride Flush 3 ML SYRINGE IVFLUSH (08:48)
[2024-03-11] MEDS: Thiamine HCL 100 MG TABLET PO (08:48)
[2024-03-11 08:56] LABS: SLIDE REVIEW VERIFIED
[2024-03-11 10:10] LABS: Adenovirus F 40/41 Not Detected (Not Detect.); Astrovirus Not Detected (Not Detect.); Campylobacter Not Detected (Not Detect.); Cryptosporidium Not Detected (Not Detect.); Cyclospora cayetanensis Not Detected (Not Detect.); E. coli EAEC Not Detected (Not Detect.); E. coli EPEC Not Detected (Not Detect.); E. coli ETEC Not Detected (Not Detect.); E. coli STEC Not Detected (Not Detect.); Entamoeba histolytica Not Detected (Not Detect.); Giardia lamblia Not Detected (Not Detect.); Norovirus GI/GII Not Detected (Not Detect.); Plesiomonas shigelloides Not Detected (Not Detect.); Rotavirus A Not Detected (Not Detect.); Salmonella Not Detected (Not Detect.); Sapovirus Not Detected (Not Detect.); Shigella sp./EIEC Not Detected (Not Detect.); Vibrio Not Detected (Not Detect.); Vibrio Cholerae Not Detected (Not Detect.); Yersinia enterocolitica Not Detected (Not Detect.)
--- NOTE | 2024-03-11 11:08 | PM.DS ---
DS: Providers Provider Date of Service: 03/11/24 Date of admission: 03/09/24 05:55 Date of discharge: 03/11/24 Primary care physician: None Physician Consults: 03/09/24 05:49 Consult to Gastroenterology Routine Consulting Provider: Uma Kitchen Reason for consultation: GI bleed 03/09/24 05:52 Addiction Medicine Routine Consulting Provider: Addiction Covering Reason for consultation: alcohol use disorder 03/09/24 07:27 Addiction Medicine Routine Consulting Provider: Addiction Covering Reason for consultation: daily etoh DS: Diagnosis Discharge Diagnosis (1) Alcohol abuse: Status: Chronic (2) GI bleed: Status: Acute (3) Alcoholic intoxication: Status: Acute DS: Summary Hospital Course Hospital Course: from initial hpi: 63-year-old female with a past medical history significant for diabetes, SLE, etoh dependence, ?MS, who presents to the ED today with a desire to withdrawal from alcohol. She was reporting weakness, frequent nausea and vomiting without blood, fatigue and frequent diarrhea. She reports the diarrhea has been persistent for months and comes and goes. Is it is variable and how frequent it occurs throughout the day. Occasionally she will have large episodes of bright red blood and denies any tarry stools or melena. She denies any abdominal pain. Her last drink was last night which she reported 4 nips. Patient was admitted for acute on chronic blood loss anemia secondary to portal gastropathy Was seen by Gastroenterology who performed EGD, had no active bleed, will be discharged home and continue follow up with Gastroenterology as outpatient. For alcohol dependence with cirrhosis and withdrawal Was treated with phenobarbital protocol and withdrawal symptoms resolved. Recommend to avoid alcohol. For diabetes was continued on insulin. For new diagnosis of hepatitis-C should follow up with GI as outpatient. For SLE will continue Enbrel as outpatient. Patient is feeling better will be discharged home. Time Attestation Discharge Coordination Time (in mins): 32 Quality: Safe Use of Opioids Does Pt have an Active Cancer Diagnosis on the Problem List?: No Quality: Stroke Does the patient have a stroke diagnosis?: No Physical Exam Vital Signs: Vital Signs: Last Vital Signs Temp 98.3 F 03/11/24 08:00 Pulse 58 03/11/24 08:00 Resp 18 03/11/24 08:00 BP 113/55 L 03/11/24 08:00 Pulse Ox 98 03/11/24 08:00 O2 Del Method Room Air 03/11/24 08:00 O2 Flow Rate 4 03/09/24 15:53 BMI result Body Mass Index 18.7 General: AO X 3, no acute distress Resp: CTA bilateral, no accessory muscles used CVS: S1,S2,RRR GI: soft, non tender, non distended Neuro: motor grossly intact, alert Psych: appropriate affect, appropriate insight DS: Data Data Completed and Pending Pending studies at discharge: Pending at discharge 03/09/24 15:37 Surgical [PTH] Routine Labs on day of discharge: Laboratory Results - last 24 hr 03/10/24 03/10/24 03/10/24 11:41 14:00 18:38 WBC RBC Hgb Hct MCV MCH MCHC RDW Plt Count MPV Immature Gran % (Auto) Neut % (Auto) Lymph % (Auto) [place] % (Auto) Eos % (Auto) Baso % (Auto) Lymph # (Auto) [place] # (Auto) Eos # (Auto) Baso # (Auto) Abs Immat Gran (auto) Absolute Neuts (auto) Absolute Nucleated RBC Nucleated RBC % (auto) Smear Tech's Comments Sodium Potassium Chloride Carbon Dioxide Anion Gap BUN Creatinine Estim Creat Clear Calc Estimated GFR POC Glucose 176 H 207 H Random Glucose Calcium Stool Leukocytes, Qual NEGATIVE Stl C. cayetanensis PCR Not Detected Stool Rotavirus A PCR Not Detected Stl Adenov F 40/41 PCR Not Detected Stool Astrovirus (PCR) Not Detected Stool Campylobacter PCR Not Detected Stool Cryptosporidium PCR Not Detected Stl Sh Tox Pr E STEC PCR Not Detected Stool E coli O157 PCR Not applicable Stl Enterotoxigenic E PCR Not Detected Stool EPEC (PCR) Not Detected Stool EAEC (PCR) Not Detected Stl E. histolytica PCR Not Detected Stool Giardia Lamblia PCR Not Detected Stl P. shigelloides PCR Not Detected Stool Salmonella PCR Not Detected Stool Sapovirus (PCR) Not Detected Stl Shigella/EIEC PCR Not Detected St Y.enterocolitica PCR Not Detected Stool Vibrio (PCR) Not Detected Stl Vibrio cholerae PCR Not Detected Stl Norovirus GI/GII PCR Not Detected 03/10/24 03/11/24 03/11/24 23:44 05:50 08:15 WBC 4.7 L RBC 2.70 L Hgb 8.2 L Hct 25.5 L MCV 94.4 MCH 30.4 MCHC 32.2 RDW 18.3 H Plt Count 88 L D MPV 9.7 Immature Gran % (Auto) 0.4 Neut % (Auto) 76.6 H Lymph % (Auto) 17.0 L [place] % (Auto) 5.2 Eos % (Auto) 0.6 Baso % (Auto) 0.2 Lymph # (Auto) 0.8 L [place] # (Auto) 0.2 Eos # (Auto) 0.0 Baso # (Auto) 0.0 Abs Immat Gran (auto) 0.02 Absolute Neuts (auto) 3.6 Absolute Nucleated RBC 0.000 Nucleated RBC % (auto) 0.0 Smear Tech's Comments VERIFIED Sodium 136 Potassium 3.8 Chloride 106 Carbon Dioxide 23 Anion Gap 11 L BUN 8 L Creatinine 0.68 Estim Creat Clear Calc 58.9 Estimated GFR > 60 POC Glucose 204 H 143 H Random Glucose 203 H Calcium 7.6 L D Stool Leukocytes, Qual Stl C. cayetanensis PCR Stool Rotavirus A PCR Stl Adenov F 40/41 PCR Stool Astrovirus (PCR) Stool Campylobacter PCR Stool Cryptosporidium PCR Stl Sh Tox Pr E STEC PCR Stool E coli O157 PCR Stl Enterotoxigenic E PCR Stool EPEC (PCR) Stool EAEC (PCR) Stl E. histolytica PCR Stool Giardia Lamblia PCR Stl P. shigelloides PCR Stool Salmonella PCR Stool Sapovirus (PCR) Stl Shigella/EIEC PCR St Y.enterocolitica PCR Stool Vibrio (PCR) Stl Vibrio cholerae PCR Stl Norovirus GI/GII PCR Discharge Plan Discharge Anticipated Discharge Date/Time: 03/11/24 11:04 Patient Disposition: Home, Self-Care Discharge Diagnosis: anemia, etoh dependence Referrals: Physician,None [Primary Care Provider] - 1 Week Uma Kitchen MD [Physician] - 1 Week Discharge Medications: Continued Enbrel SureClick 50 mg/mL (1 mL) pen injector 1 ml subcut WE acetaminophen [Tylenol] 325 mg Tablet 650 mg PO QID PRN (Reason: Pain) levothyroxine 50 mcg tablet 50 mcg PO DAILY@0600 cyanocobalamin (vitamin B-12) 1,000 mcg/mL solution 1,000 mcg IM MO insulin glargine [Lantus Solostar U-100 Insulin] 100 unit/mL (3 mL) insulin pen 9 unit subcut BEDTIME Discharge Orders: Discharge Order (Routine); Ordered 03/11/24 Ordered By: Vish Johnson Diet: Advance to usual diet Activity on Discharge: no etoh Stand Alone Forms: Patient Portal Discharge page Print Language: [place] Care Plan Goals: Recovery Health Concerns: Alcohol dependence Plan of Treatment: Avoid alcohol, follow up with Gastroenterology Assessment: See above
[2024-03-11 11:24] VITALS: BP 113/56; PULSE 54; RESP 14; TEMP 36.6; O2SAT 98
[2024-03-11 11:34] LABS: Glucose, Whole Blood 203 mg/dL (60-115)
--- NOTE | 2024-03-11 11:40 | MHC.CM.PN ---
Patient medically cleared for dc home self care. Will transport via [employer].
--- NOTE | 2024-03-18 16:03 | PC.NURSE ---
Late entry. [id number] for this patient; the blood ended at 0907am and she did receive the entire unit of RBC's with an complications or reactions noted.
== END 2024-03-11 12:50 | disposition home or self-care (01) | DRG 241 ==
LOC: HO.ED 03-09 04:32 → HO.EDOVER 03-09 05:58 → HO.IMC 03-09 09:01
PROVIDERS: Anesthesiology; Internal Medicine Gastroenterology; Student in an Organized Health Care Education/Training Program; Admitting Provider Student in an Organized Health Care Education/Training Program; Emergency Provider Emergency Medicine; Visit Provider Internal Medicine
PROC: 0DJ08ZZ Inspection of Upper Intestinal Tract, Via Natural or Artificial Opening Endoscopic (ICD-10-PCS; CPT 43235; principal; 2024-03-09 12:00)
DX: K29.71 Gastritis, unspecified, with bleeding (principal); I85.11 Secondary esophageal varices with bleeding; K76.6 Portal hypertension; D62 Acute posthemorrhagic anemia; K70.30 Alcoholic cirrhosis of liver without ascites; M32.9 Systemic lupus erythematosus, unspecified; I86.4 Gastric varices; K31.89 Other diseases of stomach and duodenum; F10.239 Alcohol dependence with withdrawal, unspecified; F10.229 Alcohol dependence with intoxication, unspecified; Y90.7 Blood alcohol level of 200-239 mg/100 ml; Z87.891 Personal history of nicotine dependence; Z79.4 Long term (current) use of insulin; Z79.890 Hormone replacement therapy; Z79.899 Other long term (current) drug therapy
CPT/HCPCS: 36415; 74178; 80048; 80179; 80307; 81001; 82272; 82728; 82947; 83540; 83735; 85025; 85027; 85610; 86704; 86706; 86803; 86850; 86900; 86901; 86923; 87340; 87507; 88305; 88313; 88342; 89055; 99285; J2354; J2470; J2560; J3411; J7120; P9016

== ENCOUNTER → 2024-03-09 04:43 | Outpatient (BNV) | payer MEDICAID, SELFPAY | PROVIDERS: Admitting Provider Student in an Organized Health Care Education/Training Program; Emergency Provider Emergency Medicine; Visit Provider Radiology Vascular & Interventional Radiology | DX: K92.2 Gastrointestinal hemorrhage, unspecified (principal) | CPT/HCPCS: 74178 ==

== ENCOUNTER → 2024-03-09 05:55 | Outpatient (BNV) | payer MEDICAID, SELFPAY | PROVIDERS: Admitting Provider Student in an Organized Health Care Education/Training Program; Emergency Provider Emergency Medicine; Visit Provider Internal Medicine Gastroenterology | DX: F10.10 Alcohol abuse, uncomplicated (principal); D64.9 Anemia, unspecified; K92.2 Gastrointestinal hemorrhage, unspecified; I85.00 Esophageal varices without bleeding; K29.00 Acute gastritis without bleeding; K76.6 Portal hypertension | CPT/HCPCS: 43239; 99222 ==

== ENCOUNTER → 2024-03-09 05:55 | Outpatient (BNV) | payer MEDICAID, SELFPAY | PROVIDERS: Admitting Provider Student in an Organized Health Care Education/Training Program; Emergency Provider Emergency Medicine; Visit Provider Physician Assistant | DX: K92.2 Gastrointestinal hemorrhage, unspecified (principal); D64.9 Anemia, unspecified; F10.129 Alcohol abuse with intoxication, unspecified | CPT/HCPCS: 99223; 99499 ==

== ENCOUNTER 2024-09-18 10:50 | Emergency (ER) | payer MEDICAID, SELFPAY ==
--- NOTE | ~2024-09-18 | CT_ITS ---
EXAMINATION: CT HEAD WITHOUT CONTRAST CLINICAL INFORMATION: fall, trauma, intoxicated COMPARISON: None available. TECHNIQUE: Contiguous axial imaging was performed from the skull base to vertex without intravenous administration of contrast. This CT examination was performed using dose optimization techniques as appropriate, variously including the following: *Automated exposure control *Adjustment of mA and/or kV according to patient size (this includes techniques or standardized protocols for targeted exams where dose is matched to indication/reason for exam; i.e. extremities or head) *Use of iterative reconstruction technique DLP: 578.62 mGy-cm FINDINGS: No acute cortical disruption in the bony calvarium. No acute intracranial hemorrhage, mass effect, midline shift, hydrocephalus or herniation. Bilateral multifocal patchy and confluent deep periventricular white matter hypodensity involving centrum semiovale and roberts radiata. Old lacunar infarcts, basal ganglia and extracapsular and likely left mid елена. Prominence of the extra-axial CSF spaces cerebral sulci and ventricles. Craniocervical junction demonstrates normal position of the cerebellar tonsils. Vascular calcifications V4 segments of the vertebral arteries and cavernous supracavernous segments both ICAs. No air-fluid levels in the included paranasal sinuses. Tympanic cavities and mastoid cells are aerated. CT/CT head/brain wo IV con IMPRESSION: No acute fracture, bony calvarium. No acute intracranial hemorrhage. Small vessel occlusive disease. Global cerebral atrophy. Electronically signed by: Skyler Alanis MD 09/18/2024 11:49 AM EDT
--- NOTE | ~2024-09-18 | CT_ITS ---
EXAMINATION: CT CERVICAL SPINE WITHOUT CONTRAST CLINICAL INFORMATION: Status post fall. Intoxication. COMPARISON: None available. TECHNIQUE: Contiguous axial images through the cervical spine using 3 mm collimation with bone and soft tissue algorithm. Sagittal and coronal reformatted images acquired. DLP: 233.[address] examination was performed using dose optimization techniques as appropriate, variously including the following: *Automated exposure control *Adjustment of mA and/or kV according to patient size (this includes techniques or standardized protocols for targeted exams where dose is matched to indication/reason for exam; i.e. extremities or head) *Use of iterative reconstruction technique FINDINGS: Patient's motion artifact. Craniocervical junction is intact with normal alignment between the occipital condyles and the lateral masses of C1. C1 is intact. C2 is intact. C3 is intact. Bilateral facet joint hypertrophy. C4 is intact. Bilateral facet joint hypertrophy. C5 is intact. Right-sided facet joint hypertrophy. C6 is intact. Bilateral facet joint hypertrophy. C7 is intact. Bilateral facet joint hypertrophy. No gross prevertebral compartment hematoma. Calcified plaques in the right brachiocephalic trunk and the proximal left subclavian artery. The thyroid gland is not enlarged. Marginal osteophyte formation and endplate sclerosis subchondral cyst formation and decreased intervertebral disc height at C5-6 and C6-7 levels. Marginal osteophyte formation C4-5 and C7-T1. Reverse curvature apex at C4-5. Grade 1 anterolisthesis C3-4 C4-5 and C7-T1 likely degenerative. Focal calcification no collision at C5 level. Tympanic cavities and mastoid air cells are aerated. Calcified plaques in the carotic arteries. CT/CT cervical spine wo IV con IMPRESSION: Multilevel cervical spondylosis resulting in central spinal canal stenosis C5-6 without acute fracture or trauma-related listhesis. Fleischner guidelines were followed. Electronically signed by: Skyler Alanis MD 09/18/2024 11:44 AM EDT
[2024-09-18 11:03] VITALS: BP 100/60; BP 92/59; PULSE 66; PULSE 70; RESP 18; TEMP 36.5; O2SAT 97; BMI 20.4
--- NOTE | 2024-09-18 11:11 | ED.GENADULT ---
HPI - General Adult General Chief complaint: Fall Stated complaint: PER EMS ETOH +HS, LAC TO FOREHEAD AND R KNEE Time Seen by Provider: 09/18/24 11:01 History of Present Illness ED Provider: Charles CORTEZ narrative: The patient is a 64-year-old female who describes herself as a type 1 diabetic. She was brought to the hospital by ambulance after a [facility]. She says that she was getting something out of her car when she fell. She admits to drinking alcohol. She does not really call the exact mechanism of the fall or what she might have struck or whether she had loss of consciousness. Apparently she was found by a neighbor at the apartment door way. The fall was unwitnessed. The amount of time that has elapsed before she was discovered is unclear. She was brought here by [facility]. A cervical collar was placed. She had an obvious laceration to her forehead and a dressing was placed. She does not feel that she broke any bones in her extremities. She admits to drinking alcohol. She denies significant headache or neck pain. She is not on anticoagulation. She takes Lantus in the evening. She is asking for food. Related Data Home Medications ?Medication ?Instructions ?Recorded ?Confirmed etanercept 50 mg/mL (1 mL) 1 ml subcut WE 01/05/22 03/09/24 subcutaneous pen injector (Enbrel SureClick) acetaminophen 325 mg tablet 650 mg PO QID PRN Pain 03/09/24 03/09/24 (Tylenol) cyanocobalamin (vitamin B-12) 1,000 mcg IM MO 03/09/24 03/09/24 1,000 mcg/mL injection solution insulin glargine 100 unit/mL (3 9 unit subcut BEDTIME 03/09/24 03/09/24 mL) subcutaneous pen (Lantus Solostar U-100 Insulin) levothyroxine 50 mcg tablet 50 mcg PO DAILY@0600 03/09/24 03/09/24 Allergies Allergy/AdvReac Type Severity Reaction Status Date / Time No Known Allergies Allergy Verified 09/18/24 11:08 Review of Systems Review of Systems: Yes all other systems are reviewed and are negative [facility] Past Medical History Medical History Diabetes mellitus Lupus Alcohol abuse Social History Social History Household Members: None [facility] Are you a primary manager managed care to a significant other at home: No Do you presently have visiting nurse or other home services: No Alcohol intake: current Alcohol intake frequency: 3 or more drinks per day Alcohol type: hard liquor Patient Tobacco Use Status: Former Tobacco user Advance Directives: No Advance Directives Information Provided: Yes service: No Physical Exam ED Vital Signs: Vital Signs - 24 hr 09/18/24 11:03 09/18/24 12:00 09/18/24 12:15 Temperature 97.7 F 97.9 F Pulse Rate 66 67 66 Respiratory Rate 18 13 Blood Pressure 92/59 L 88/42 L 96/49 L Pulse Oximetry 97 97 Oxygen Delivery Method Room Air Room Air 09/18/24 14:05 09/18/24 16:40 Temperature 97.9 F 97.9 F Pulse Rate 65 65 Respiratory Rate 16 16 Blood Pressure 97/51 L 97/51 L Pulse Oximetry 98 98 Oxygen Delivery Method Room Air Room Air BMI result Body Mass Index 20.4 Const Other: The patient is a slim 64-year-old woman. She is in his cervical collar. She has a large bandage over her forehead. She is awake and alert. She seems intoxicated. She is very talkative. She moves all extremities. She is often foul-mouthed. She is a chronically ill-appearing woman who looks older than her age. She has a small vertically oriented laceration on her forehead above the left eyebrow. She seems intoxicated but not in acute distress. HENMT Other: There is a 2 cm vertically oriented laceration to the forehead just above the left eyebrow. No raccoon eyes. No groves sign. There is some soft tissue swelling to the left upper lip. Dentition seems intact. No dental injury. No intraoral injury. The airway is clear. The posterior pharynx is normal. She has normal excursion of the jaw. Eyes Other: Pupils are round equal, conjunctivae are clear, extraocular movements intact. No signs of injury to the eyes. Neck Other: The patient initially reported some midline vertebral tenderness to the cervical spine. She was in a cervical collar. No injuries to the anterior neck. Chest Chest palpation & inspection: normal inspection of the chest and normal palpation of entire chest wall Resp Effort & Inspection: normal respiratory effort Auscultation: clear to auscultation bilaterally Cardio Rate: regular rate Rhythm: regular rhythm Heart sounds: S1 normal heart sound present and S2 normal heart sound present GI Other: The abdomen is soft and nontender Back/Spine/Pelvis Other: No sign of injury to the back. Skin Other: There is a 2 cm vertically oriented laceration of the left forehead above the left eyebrow. There is a 2 cm horizontally oriented laceration to the skin of the right leg above the right patella. Both of these lacerations are full-thickness lacerations but not very deep. Neuro Other: The patient was awake and alert. She seemed intoxicated but she was well oriented. No gross slurring of speech. Cranial nerves 2-12 are intact. She moves her extremities symmetrically and appropriately. Extrem Other: The patient has some abrasions in his small laceration to the skin above the right knee. However there is no deformity and she moves the knee easily and seems to bear weight on the knee. Medications Administered Discontinued Medications Generic Name Dose Route Start Last Admin Trade Name Vitaly PRN Reason Stop Dose Admin Bacitracin 2 appl 09/18/24 12:43 09/18/24 12:49 Bacitracin Oint 0.9 Gm Packet TOPICAL 09/18/24 12:44 2 appl ONCE ONE Administration Protocol Diphtheria/Tetanus/Acell Pertussis 0.5 ml 09/18/24 12:01 09/18/24 12:49 Diphth,Pertus(Acell),Tet Adult 0.5 Ml Syringe IM 09/18/24 12:02 0.5 ml .ONCE ONE Administration Lidocaine HCl 10 ml 09/18/24 12:00 09/18/24 12:49 Lidocaine Hcl 1 % Mpf 5 Ml Vial INFILTRATI 09/18/24 12:01 10 ml ONCE ONE Administration Lorazepam 1 mg 09/18/24 11:13 09/18/24 11:40 Lorazepam 2 Mg/Ml Vial IVPUSH 09/18/24 11:14 1 mg ONCE ONE Administration Medical Decision Making Medical Decision Making [facility] Narrative: The patient is a 64-year-old woman who was an alcoholic. [facility] She was apparently found at the doorway of her apartment building by a passerby who called 911. The patient claims that she had gone out to her car to get some paper towels from the car that she had bought on a previous day. She speculates she must have fallen while returning to her apartment. The fall was unwitnessed. She has a poor memory of the fall and can not really describe the mechanism of fall. She has signs of a head injury with a laceration to the forehead. Also some bruising of the left upper lip. No significant facial soft tissue swelling otherwise. I have a low suspicion for a facial bone injury. A CT scan of the head and cervical spine were done which were negative for acute injuries. The right knee laceration and the left forehead laceration were closed using normal wound closure techniques was simple interrupted stitches. Each laceration was given 4 simple interrupted stitches. The patient tolerated both laceration repairs well. The patient was somewhat agitated initially and was given 1 mg of IV lorazepam. She then slept for a long time. She was hungry and asked for food. She was intoxicated in her alcohol level was 338. She slept for awhile after receiving lorazepam. She ultimately woke up and seemed clinically much more sober. She was able to ambulate to the bathroom without significant assistance. She insisted on being discharged. After approximately 5 hours of observation I felt the patient was sufficiently sober for discharge. She was going to arrange a taxi to take her home. Lab Data 09/18/24 11:35 09/18/24 11:35 Labs: Lab Results 09/18/24 09/18/24 Range/Units 11:19 11:35 WBC 5.1 (4.8-10.8) X10*3/uL RBC 2.76 L (4.20-5.50) X10*6/uL Hgb 9.7 L (12.0-16.0) g/dl Hct 28.8 L (37.0-47.0) % MCV 104.3 H (80.0-98.0) fL MCH 35.1 H (27.0-33.0) pg MCHC 33.7 (31.0-35.0) g/dl RDW 18.1 H (11.0-16.0) % Plt Count 145 L D (160-400) X10*3/uL MPV 9.0 L (9.4-12.3) fL Immature Gran % (Auto) 0.4 (0.0-0.4) % Neut % (Auto) 50.3 (45-73) % Lymph % (Auto) 39.6 (20-40) % [place] % (Auto) 6.5 (2-11) % Eos % (Auto) 2.0 (0-4) % Baso % (Auto) 1.2 (0-2) % Lymph # (Auto) 2.0 (1.2-4.9) X10*3/uL [place] # (Auto) 0.3 (0.1-1.2) X10*3/uL Eos # (Auto) 0.1 (0.0-0.4) X10*3/uL Baso # (Auto) 0.1 (0.0-0.2) X10*3/uL Abs Immat Gran (auto) 0.02 (0.00-0.03) X10*3/uL Absolute Neuts (auto) 2.6 (2.0-8.3) x10*3/uL Absolute Nucleated RBC 0.000 (0.0-0.012) X10*3/uL Nucleated RBC % (auto) 0.0 (0.0-0.2) /100WBC Sodium 145 (135-145) mmol/L Potassium 4.0 (3.3-5.1) mmol/L Chloride 115 H (96-108) mmol/L Carbon Dioxide 22 (22-29) mmol/L Anion Gap 12 (12-20) BUN 18 H (9-16) mg/dL Creatinine 0.71 (0.5-1.4) mg/dL Estim Creat Clear Calc 64.1 Estimated GFR > 60 POC Glucose 89 (60-115) mg/dL Random Glucose 91 (60-115) mg/dL Calcium 8.1 L D (8.4-10.2) mg/dL Magnesium 1.7 (1.6-2.6) mg/dL Total Bilirubin 0.4 (0.0-1.0) mg/dL Direct Bilirubin 0.2 (0.0-0.5) mg/dL AST 40 H (5-31) U/L ALT 21 (0-31) U/L Alkaline Phosphatase 65 (39-117) U/L Total Creatine Kinase 112 (26-140) U/L Troponin I High Sens < 2.7 (<3.5-17.0) ng/L Total Protein 6.1 L (6.5-8.0) g/dL Albumin 3.5 (3.5-5.0) g/dL Ethyl Alcohol 338 H* mg/dL Discharge Plan Discharge Clinical Impression: Fall, Head injury, Forehead laceration, Contusion of vermilion border of upper lip, Laceration of right knee, Alcohol intoxication Patient Disposition: Home, Self-Care Instructions: Laceration (ED) Additional Instructions: You have 4 stitches in the laceration of your forehead and 4 stitches in the laceration above your right knee. These stitches should be removed in 1 week. Please contact your regular doctor's office to arrange suture removal next Saturday. You received a tetanus shot today. Please be careful with alcohol in the future. Your alcohol level was 338. This is a very high alcohol level. Please try to reduce your alcohol use. Again, please follow up with your regular doctor next Saturday for suture removal and further discussion of this incident. Please reduce your alcohol use. Return to the emergency room if significantly worse. Prescriptions: No Action Enbrel SureClick 50 mg/mL (1 mL) pen injector 1 ml subcut WE acetaminophen [Tylenol] 325 mg Tablet 650 mg PO QID PRN (Reason: Pain) levothyroxine 50 mcg tablet 50 mcg PO DAILY@0600 cyanocobalamin (vitamin B-12) 1,000 mcg/mL solution 1,000 mcg IM MO insulin glargine [Lantus Solostar U-100 Insulin] 100 unit/mL (3 mL) insulin pen 9 unit subcut BEDTIME Referrals: Jossy Natarajan FNP [Nurse Practitioner, Family Practice] Interventions: ED Discharge Assessment Last Done: 09/18/24 16:40 Discharge Date/Time: 09/18/24 16:40 Print Language: Irish
--- NOTE | 2024-09-18 11:13 | ECG_ITS ---
Test Reason : FALL Blood Pressure : */* mmHG Vent. Rate : 63 BPM Atrial Rate : 63 BPM P-R Int : 140 ms QRS Dur : 78 ms QT Int : 422 ms P-R-T Axes : 59 17 59 degrees QTcB Int : 431 ms Normal sinus rhythm Septal infarct , age undetermined Abnormal ECG When compared with ECG of 18-Sep-2022 20:28, Vent. rate has decreased by 43 bpm Septal infarct is now Present QT has shortened Referred By: Denys Soto Electronically Signed By: Giovany Oliver
[2024-09-18 11:22] LABS: Glucose, Whole Blood 89 mg/dL (60-115)
[2024-09-18 11:38] LABS: MANUAL DIFF FLAG NO
[2024-09-18] MEDS: LORazepam 2 MG/ML VIAL 1 MG IVPUSH (11:40)
[2024-09-18 11:44] LABS: Hematocrit 28.8 % (37.0-47.0); Hemoglobin 9.7 g/dl (12.0-16.0); Imm Gran Abs Auto 0.02 X10*3/uL (0.00-0.03); Imm Gran Pct Auto 0.4 % (0.0-0.4); Lymphocytes Absolute Auto 2.0 X10*3/uL (1.2-4.9); Mean Corpuscular HGB Conc 33.7 g/dl (31.0-35.0); Mean Corpuscular Hemoglobin 35.1 pg (27.0-33.0); Mean Corpuscular Volume 104.3 fL (80.0-98.0); NRBC Abs Auto 0.000 X10*3/uL (0.0-0.012); NRBC Pct Auto 0.0 /100WBC (0.0-0.2); Platelet Count 145 X10*3/uL (160-400); Red Blood Count 2.76 X10*6/uL (4.20-5.50); White Blood Count 5.1 X10*3/uL (4.8-10.8)
--- NOTE | 2024-09-18 11:45 | PC.NURSE ---
20g IV access established to right AC. Labs drawn and sent for analysis. Results pending. Cervical collar remains in place at this time. Patient removed BP cuff & pulse oximeter from herself. Mildly agitated but redirectable. Occasional swearing. Answers questions appropriately. EKG and CT scan obtained, awaiting results. Care ongoing by this RN & [facility] ED PCT.
[2024-09-18 12:00] VITALS: BP 88/42; PULSE 67; RESP 13; TEMP 36.6; O2SAT 97
[2024-09-18 12:00] LABS: Alanine Aminotransferase 21 U/L (0-31); Albumin Level 3.5 g/dL (3.5-5.0); Alkaline Phosphatase 65 U/L (39-117); Anion Gap 12 (12-20); Aspartate Amino Transferase 40 U/L (5-31); Blood Urea Nitrogen 18 mg/dL (9-16); Calcium 8.1 mg/dL (8.4-10.2); Carbon Dioxide 22 mmol/L (22-29); Chloride 115 mmol/L (96-108); Creatinine Clr Calc Pharmacy 64.1; Estimated Glomerular Filt Rate > 60; Magnesium 1.7 mg/dL (1.6-2.6); Potassium 4.0 mmol/L (3.3-5.1); Sodium 145 mmol/L (135-145); Total Protein 6.1 g/dL (6.5-8.0)
[2024-09-18 12:08] LABS: Troponin-I High Sensitivity < 2.7 ng/L (<3.5-17.0)
[2024-09-18 12:15] VITALS: BP 96/49; PULSE 66
--- OUTSIDE RECORDS SUMMARY | 2024-09-18 12:40 | XMS_ITS ---
Author Name [facility] Organization Unknown Encounters Encounter Type Encounter Reason Primary Diagnosis Location Date Ambulatory [facility] 09/17/2024 Care Team Organization Name Specialty Phone Email Start Date End Da te [facility] 09/17
--- OUTSIDE RECORDS SUMMARY | 2024-09-18 12:41 | XMS_ITS | Data Portability ---
Author Organization [facility] [employer] Address [address] [place] [address] [place] [address] Care Team Providers [employer] Supervisor Name Role Phone JENNIFER PETERS Referring Provider JENNIFER PETERS Primary Care Provider Assessment Encounter Date Assessment Date Assessment LastModified by Organization Details LastModified Time 11/19/2023 11/19/2023 IMPRESSION: At [facility] 4 years of dizziness, most prominent with standing or walking with additional feeling of unsteadiness, less prominent but palpable while sitting with a feeling of just dizzy, better when lying down. I am unclear what causes this constant dizziness, standing more than sitting. The differential includes autonomic neuropathy from diabetes; B12 deficiency that may persist that is currently untreated; and side effect from one of her meds, perhaps Enbrel. Glycemic dyscontrol is in the differential but relatively unlikely given her history. I explained autonomic neuropathy to her. It may occur selectively and so affect the autonomic nervous between brain and heart and yet spared the bladder. I defer to cardiology or primary care for consideration of the standard medications such as midodrine, fludrocortisone or Northera for this if nonpharmacological intervention such as compression stockings or salt is insufficient, as all may cause supine hypertension (which may be present at baseline for some cases of autonomic neuropathy). If she does not tolerate or respond to these medicines, I would be willing to supervise the one neurology medication indicated in this context, pyridostigmine, which does not cause supine hypertension. Cardiology diagnosis of autonomic dysfunction with tilt table testing before considering such an intervention. B12 deficiency is in the chart and she remembers that she has had this. She cannot say why she is not on B12 replacement. I again defer to primary care for further assessment and treatment that may provide diagnosis and benefit. I defer to rheumatology for consideration of risk versus benefit of trial of Enbrel and on a different medication for her rheumatological disorders (she thinks the Enbrel is for her lupus but it may also be for her rheumatoid arthritis). The nature of her dizziness does not suggest vertigo and therefore does not suggest central nervous system primary etiology. Furthermore, she validates that her previous neurologist performed brain MRI that she reports was unrevealing when there was focus on her dizziness several years ago. For her tingling in her fingertips, B12 deficiency may also play a role. Replenishment of B12 does not always resolve the situation but again assessment in that direction may be hallucinating. She validates that previous neurologist performed MRI of her spine and so treatable issue in her C-spine has been excluded even though she says that the tingling began after one of her falls. Dysglycemia is also in the differential. However, I think this is unlikely. She checks her blood sugar and ranges between mid 60s and 225. She never notices any correlation with her dizziness which in any case does not vary in intensity except with changing posture from sitting to standing/walking or with lying down. Medications per patient: Enbrel injection weekly, levothyroxine, vitamin D3 10,000 units daily, insulin. >>>>>>>>>>>> PLAN Veronica Alirio November 19, 2023 We agree she will follow-up as needed. [email or web address] Not available 11/19/2023 13:24:03 Plan of Treatment Reminders Order Date Submit Date Provider Last Modified By Organization Details Last Modified Time Details Appointments None record ed. Lab None record ed. Referral None record ed. Procedures None record ed. Surgeries None record ed. Imaging None record ed. Medication Orders None record ed. Patient TargetsNo targets recorded. Patient Instructions Encounter Date Encounter Id Patient Instructions Last Modified By Organization Details Last Modified Time 11/19/2023 [id number] Discussion acros s issues of diagnoses and management and same day associated chart review and management greater than 50% greater than 60 minutes [email or web address] Not available 11/19/2023 11:56:23 Reason for Referral None Reported. Procedures Surgical History Date Name Laterality Status Provider Name and Address Organization Details Recorded Time 11/19/2023 DATA REVIEW completed Phil Haskins MD [address] [place] [address] [place], [phone], [facility] Neurology [facility] 11/19/2023 11:26:18 Imaging Results None recorded. Procedure Notes None recorded. Medical Equipment None Reported. Allergies No known drug allergies Medications Name Sig Start Date Stop Date Status Note LastModified by Organization Details LastModified Time d3 250 mcg (78184 ut) caps active Not Available Not Available Not Available b-1 100 mg tabs active Not Available Not Available Not Available thiamine HCl (vitamin B1) 100 mg tablet TAKE 1 TABLET BY MOUTH DAILY FOR 7 DAYS active Not Available Not Available N ot Available levothyroxin e 25 mcg tablet active Not Available Not Available Not Available levothyroxin e 50 mcg tablet TAKE 1 TABLET BY MOUTH EVERY DAY active Not Available Not Available No t Available pantoprazole 40 mg tablet,delay ed release TAKE 1 TABLET BY MOUTH TWICE A DAY active Not Available Not Available No t Available Alcohol Prep Pads USE TWICE DAILY DIRECTED FOR MONITORING GLUCOSE active Not Available Not Available No t Available cholecalcife rol (vitamin D3) 250 mcg (10,000 unit) capsule TAKE ONE CAPSULE BY MOUTH DAILY active Not Available Not Available Not Available ferrous gluconate 324 mg (38 mg iron) tablet TAKE 1 TABLET BY MOUTH EVERY DAY. active Not Available Not Available No t Available Enbrel SureClick 50 mg/mL (1 mL) subcutaneous pen injector active Not Available Not Available Not Available FreeStyle Lite Strips USE DIRECTED TO CHECK BLOOD SUGAR FOUR TIMES DAILY active Not Available Not Available Not Available Lantus Solostar U-100 Insulin 100 unit/mL (3 mL) subcutaneous pen ADMINISTER 5 UNITS UNDER THE SKIN EVERY NIGHT AT BEDTIME active Not Available Not Available No t Available BD Erendira 2nd Gen Pen Needle 32 gauge x 5/32 USE TO INJECT INSULIN FOUR TIMES DAILY active Not Available Not Available No t Available Vitals None Recorded Social History Question Answer Notes LastModified by Organizat ion Details LastModified Time Tobacco Smoking Status [facility] 11/19/2023 11:15:27 What Is Your Level Of Caffeine Consumption? Moderate [facility] Information not available 11/19/2023 What Is The Highest Grade Or Level Of School You Have Completed Or The Highest Degree You Have Received? [id number] [facility] Information not available 11/19/2023 Which Of Your Hands Is Dominant? Right Information not available 11/19/2023 What Is Your Relationship Status? Unknown [email or web address] Information not available 11/19/2023 Sex: Unknown Functional Status Question Answer Note LastModified by Organization D etails LastModified Time What is your level of alcohol consumption? None Information not available 11/19/2023 Mental Status None recorded. Family History Relationship Description Onset Age of this Age Resolved Age Notes LastModified by Organization Details LastModified Time Unspecified Relation Dementia [email or web address] Not available 12/2023 10:57:43 Unspecified Relation Type 1 diabetes mellitus [email or web address] Not available 12/2023 10:57:57 Unspecified Relation Cerebrovascu lar accident [email or web address] Not available 11/19/2023 10:58:12 Medical History Condition Response Thyroid Problems Y Depression Y Gynecological HistoryNo gynecological history recorded. Obstetrics History GPAL:G 0 P 0 0 0 0 Past Encounters Encounter ID Performer Location Encounter Start Date Encounter Closed Date Diagnosis/Indication Diagnosis SNOMED-CT Code Diagnosis ICD10 Code Diagnosis Note [id number] Phil Haskins MD [address] [place] [address] 11/19/2023 10:56:25 11/19/2023 15:23:13 Postural dizziness [id number] R42 Idiopathic peripheral neuropathy 80980871 G60.3 Unsteady w hen standing 708356517 R26.81 Health Concerns Section Related Observation LastModified by Organization Detai ls LastModified Time None Recorded Concern Status LastModified by Organization Details LastModified Time None Recorded Advance Directives Directive None Recorded Payers Insurance Date Sequence Insurance Name Policy Number Policy Parks Covered Member ID Parks Member ID Guarantor Name 11/16/2023 1 [facility] HP - DOS ON OR AFTER 2022 - [facility] [employer] (MEDICAID REPLACEMENT - HMO) Veronica Amezquita [id number] 1 Veronica Amezquita Notes Date Note Type Note Provider Name and Address Organization Details Recorded Time 11/19/2023 text/html >>>>>>>>>>>>Sept em 2023 presenting symptomotology:Deirdre Amezquita presents for initial neurology consultation for assessment and management of dizziness.Past history includes diabetes, type II, primary hemochromatosis, lupus, rheumatoid arthritis, under management of rheumatology, [facility] per chart, history of GI hemorrhage, history of B12 deficiency, history of alcohol abuse, per patient: Abstaining for several years , depression and anxiety. Previously saw neurologist Dr. Mcdonald, April 2019, per chart: ruled out MS, extensive neuro/ENT workup negative.She has been dizzy for about 4 years although she says that perhaps the dizziness started in her 50s. It is constant and has been for a while. She is bitchy because she is not feeling good and she is sick of not feeling good. If someone could make the dizziness go away it would make her feel more than 50% better.The dizziness is a physical dizziness, not a mental dizziness. When standing, the dizziness feels like unsteadiness, walking like she is drunk. The feeling is no different whether she is standing still or ambulating. The dizziness does not have any sense of lightheadedness, or the world moving, or herself moving. It is better but still notable when she is sitting, during which time she is not unsteady, just dizzy a feeling of the same quality but less intense compared to her dizziness when standing/walking. The dizziness is better still when she is laying down but I cannot lay down all the time. Other than these positional variations, dizziness does not change throughout the day or across days or longer periods of time.She has fallen, she remembers three times but her friend remembers at least a fourth time. At least once she has fractured ribs. Falling occurs without any warning. As she falls to the ground, it feels like she is fainting but she does not lose consciousness. Falls were all recent, and all due to the dizziness, and most recently several weeks ago. Yet she remembers no change in the intensity of dizziness over the years since it began.She has good bladder control.Her fingertips are numb all the time. She thinks this relates to residual injury after one of her falls. Phil Haskins MD [address] [place], [place] [address], [phone], [facility] Neurology [facility] 11/19/2023 13:24:28 OBGyn Episode No OBEpisode recorded.
[2024-09-18] MEDS: Diphth,Pertus(ACell),Tet Adult 0.5 ML SYRINGE IM (12:49)
[2024-09-18] MEDS: Lidocaine HCl 1 % MPF 5 ML VIAL 10 ML INFILTRATI (12:49)
[2024-09-18 14:05] VITALS: BP 97/51; PULSE 65; RESP 16; TEMP 36.6; O2SAT 98
[2024-09-18 16:40] VITALS: BP 97/51; PULSE 65; RESP 16; TEMP 36.6; O2SAT 98
--- NOTE | 2024-09-18 17:22 | MHC.EDTECH ---
Pt discharged by MD and RN. Bedside RN Reina requested this Tech to wheel patient to and assist patient with phone call to [employer] company. Pt wheeled to and assisted with using phone to call [employer]. After phone call, patient was wheeled and situated in front of registration/security desk while she waited for the cab to arrive.
== END 2024-09-18 16:40 | disposition home or self-care (01) ==
PROVIDERS: Emergency Provider Emergency Medicine
DX: F10.120 Alcohol abuse with intoxication, uncomplicated (principal); Y90.8 Blood alcohol level of 240 mg/100 ml or more; S09.8XXA Other specified injuries of head, initial encounter; S01.81XA Laceration without foreign body of other part of head, initial encounter; S81.011A Laceration without foreign body, right knee, initial encounter; S00.531A Contusion of lip, initial encounter; W19.XXXA Unspecified fall, initial encounter; Y93.89 Activity, other specified; Y92.481 Parking lot as the place of occurrence of the external cause; Y99.8 Other external cause status; Z23 Encounter for immunization
CPT/HCPCS: 12001; 12011; 36415; 70450; 72125; 80048; 80076; 80307; 82550; 82947; 83735; 84484; 85025; 90471; 90715; 93005; 96374; 99284; J2003; J2060

== ENCOUNTER → 2024-09-18 11:13 | Outpatient (BNV) | payer MEDICAID, SELFPAY | PROVIDERS: Emergency Provider Emergency Medicine; Visit Provider Internal Medicine Cardiovascular Disease | DX: R94.31 Abnormal electrocardiogram [ECG] [EKG] (principal); R55 Syncope and collapse | CPT/HCPCS: 93010 ==

== ENCOUNTER → 2024-09-18 11:14 | Outpatient (BNV) | payer MEDICAID, SELFPAY | PROVIDERS: Emergency Provider Emergency Medicine; Visit Provider Radiology Diagnostic Radiology | DX: M48.02 Spinal stenosis, cervical region (principal); G31.9 Degenerative disease of nervous system, unspecified | CPT/HCPCS: 70450; 72125 ==

== ENCOUNTER 2024-09-21 16:59 | Emergency (ER) | payer MEDICAID, SELFPAY ==
--- NOTE | 2024-09-21 | ECG_ITS ---
Test Reason : SYNCOPE Blood Pressure : */* mmHG Vent. Rate : 70 BPM Atrial Rate : 70 BPM P-R Int : 130 ms QRS Dur : 78 ms QT Int : 402 ms P-R-T Axes : 62 17 69 degrees QTcB Int : 434 ms Normal sinus rhythm Cannot rule out Anterior infarct (cited on or before 18-Sep-2024) Abnormal ECG When compared with ECG of 18-Sep-2024 11:37, Questionable change in initial forces of Septal leads Referred By: Kavon Kumar Electronically Signed By: CLINTON HAND
--- NOTE | ~2024-09-21 | CT_ITS ---
CLINICAL HISTORY: FALL, HEAD STRIKE CT head without contrast. COMPARISON: CT head dated 09/18/24 at 11:19 EDT FINDINGS: The visualized paranasal sinuses are clear. The mastoid air cells are clear. No calvarial fracture. Atherosclerotic intracranial vasculature. No evidence for mass or mass effect. Small amount of subarachnoid hemorrhage present along the anterior left frontal lobe (series 5, image 156). The ventricles are proportional with the degree of mild global cerebral volume loss without evidence of hydrocephalus. Basilar cisterns are patent. There are periventricular areas of low attenuation compatible with mild white matter small vessel disease. Posterior fossa appears unremarkable. IMPRESSION: 1. Small amount of subarachnoid hemorrhage present along the anterior left frontal lobe. No associated mass effect. This document has been electronically signed by: Colin Ashby MD on 09/21/2024 19:29:10
--- NOTE | ~2024-09-21 | XR_ITS ---
CLINICAL HISTORY: smoker, wt loss, fall Single view of the chest. COMPARISON: XR chest dated 09/18/22 at 20:33 EDT FINDINGS: Normal heart size. Atherosclerotic thoracic aorta. No consolidation. No pleural effusion or pneumothorax. Moderate spondylosis. Chronic healed fracture of the lateral aspect of the right 5th rib. No acute fracture. IMPRESSION: 1. No acute cardiopulmonary abnormality. This document has been electronically signed by: Colin Ashby MD on 09/21/2024 18:36:03
[2024-09-21 17:19] VITALS: BP 126/66; BP 130/67; PULSE 81; PULSE 84; RESP 18; TEMP 37.2; O2SAT 98; BMI 16.8
--- NOTE | 2024-09-21 17:22 | ED.SYNCOPE ---
HPI - Syncope General Chief Complaint: Syncope Stated Complaint: dizzy, diff ambulating Time Seen by Provider: 09/21/24 17:19 History of Present Illness ED Provider: Kavon Kumar MD HPI narrative: [age] female presents for syncope and/or fall. She has a history of insulin-dependent diabetes alcohol use disorder denies drinking alcohol today. She reports over the last month she has had multiple frequent falls unsteadiness. At this point she can not leave her home to go food shopping people are bringing food to her. She notes weight loss as well. She fell quite badly last week was evaluated here with head and cervical spine CTs had some stitches to the face and bruising she has fallen 2 or 3 times since that time from being unsteady couch surfing. Denies truncal injury or extremity injuries. She denies alcohol today or any withdrawal syndrome symptoms. No hypoglycemia Related Data Home Medications ?Medication ?Instructions ?Recorded ?Confirmed etanercept 50 mg/mL (1 mL) 1 ml subcut WE 01/05/22 03/09/24 subcutaneous pen injector (Enbrel SureClick) acetaminophen 325 mg tablet 650 mg PO QID PRN Pain 03/09/24 03/09/24 (Tylenol) cyanocobalamin (vitamin B-12) 1,000 mcg IM MO 03/09/24 03/09/24 1,000 mcg/mL injection solution insulin glargine 100 unit/mL (3 9 unit subcut BEDTIME 03/09/24 03/09/24 mL) subcutaneous pen (Lantus Solostar U-100 Insulin) levothyroxine 50 mcg tablet 50 mcg PO DAILY@0600 03/09/24 03/09/24 Allergies Allergy/AdvReac Type Severity Reaction Status Date / Time No Known Allergies Allergy Verified 09/21/24 17:20 [facility] Past Medical History Medical History Diabetes mellitus Lupus Alcohol abuse Social History Social History Household Members: None Housing: Condominium Are you a primary critical care specialist to a significant other at home: No Do you presently have visiting nurse or other home services: No Alcohol intake: current Alcohol intake frequency: 3 or more drinks per day Alcohol type: hard liquor Patient Tobacco Use Status: Former Tobacco user service: No Physical Exam Vital Signs: Vital Signs: Last Vital Signs Temp 97.8 F 09/21/24 22:44 Pulse 73 09/21/24 22:44 Resp 21 H 09/21/24 22:44 BP 117/64 09/21/24 22:44 Pulse Ox 98 09/21/24 22:44 O2 Del Method Room Air 09/21/24 22:44 BMI result Body Mass Index 16.8 GENERAL: Awake alert chronically ill-appearing and thin. Bruising to the face HEAD/NECK: Normal to inspection. Neck supple. No cervical lymphadenopathy. EYES: Normal to inspection. Sclera non-icteric. No hyphema or hypopyon ENMT: Bruising to the right side of the face and healing sutures to the forehead RESPIRATORY: Respiratory effort normal. Lungs clear to auscultation bilaterally. CARDIOVASCULAR: Regular rate. Normal rhythm. No murmur. No rubs. GI: Soft, non-tender, non-distended. No rebound or guarding. No masses palpable. No hepatosplenomegaly. SKIN: No jaundice. NEUROLOGICAL: Alert. PSYCHIATRIC: Alert. Appearance appropriate for situation. Attitude cooperative. OTHER: Comprehensive Neuro exam: Gait assessment: Unable to take 2 or 3 steps even without full assistance. Grossly unsteady. No falling to 1 side or the other. Face symmetric, tongue midline, strong symmetric eye closure, pupils symmetric and reactive to light, intact sensation to the face throughout, intact strong face deviation and shoulder shrug. Sensation intact to light touch throughout 5 out of 5 strength in bilateral upper extremities, 5 and 5 strength in lower extremities Medications Administered Discontinued Medications Generic Name Dose Route Start Last Admin Trade Name Freq PRN Reason Stop Dose Admin Thiamine HCl 500 mg/ Sodium 105 mls @ 210 mls/hr 09/21/24 17:35 09/21/24 21:31 Chloride IV 09/21/24 18:04 Infused ONCE ONE Infusion Sodium Chloride 1,000 mls @ 999 mls/hr 09/21/24 18:00 09/21/24 21:31 Ns IV 09/21/24 19:00 Infused .Q1H1M SAVI Infusion Magnesium Oxide 800 mg 09/21/24 18:00 09/21/24 18:58 Magnesium Oxide 400 Mg Tablet PO 09/21/24 18:01 800 mg ONCE ONE Administration Medical Decision Making Medical Decision Making MDM Narrative: Medical Decision Making: [age] female with a month of unsteady gait unable to leave her home. She thin and cachectic and has acute on chronic anemia without reported GI bleeding. She has mild pancytopenia probably from alcohol use disorder. Falling frequently fell over the past 2 days once or twice. No truncal or extremity injury but she thinks she has hit her head no new appearing hematoma she has bruising from the the recent fall where she was evaluated in the emergency department. Platelets 82 this is lower than she has been in the past. Small traumatic subarachnoid hemorrhage without shift. Case discussed with our hospitalist who is uncomfortable taking this patient our air gun operator he tells me we will not take intracranial hemorrhages to our ICU therefore I will call [facility]. Preliminary Favored Differential Diagnosis: Traumatic subarachnoid hemorrhage, alcohol use disorder, vitamin deficiency, deconditioning, cachexia, malnourished/electrolyte derangement among additional considered etiologies Testing Interpreted Independently: Not Applicable Radiology or Lab testing Results Reviewed: Labs: Pancytopenia worse than previous. Slightly lower hemoglobin than and platelets than baseline. Probably secondary to alcohol use disorder no identifiable bleed on exam or history. Hypomagnesemia we will replete TSH 4.9 pending reflex T3/T4. Pending B12 and folate Consults: [facility] trauma surgery for traumatic intracranial hemorrhage Independent Historians/External Chart Reviews: Not Applicable Social Determinants of Health Impacting MDM/Planning: Alcohol use disorder, inability to follow up given ambulatory status unlikely to follow through on follow up plans Lab Data 09/21/24 17:50 09/21/24 17:50 Labs: Lab Results 09/21/24 09/21/24 Range/Units 17:50 20:02 WBC 3.6 L (4.8-10.8) X10*3/uL RBC 2.29 L (4.20-5.50) X10*6/uL Hgb 8.0 L (12.0-16.0) g/dl Hct 23.1 L (37.0-47.0) % MCV 100.9 H (80.0-98.0) fL MCH 34.9 H (27.0-33.0) pg MCHC 34.6 (31.0-35.0) g/dl RDW 17.2 H (11.0-16.0) % Plt Count 82 L D (160-400) X10*3/uL MPV 9.7 (9.4-12.3) fL Immature Gran % (Auto) 0.6 H (0.0-0.4) % Neut % (Auto) 53.8 (45-73) % Lymph % (Auto) 34.6 (20-40) % Glacier % (Auto) 9.8 (2-11) % Eos % (Auto) 0.6 (0-4) % Baso % (Auto) 0.6 (0-2) % Lymph # (Auto) 1.2 (1.2-4.9) X10*3/uL [place] # (Auto) 0.4 (0.1-1.2) X10*3/uL Eos # (Auto) 0.0 (0.0-0.4) X10*3/uL Baso # (Auto) 0.0 (0.0-0.2) X10*3/uL Abs Immat Gran (auto) 0.02 (0.00-0.03) X10*3/uL Absolute Neuts (auto) 1.9 L (2.0-8.3) x10*3/uL Absolute Nucleated RBC 0.000 (0.0-0.012) X10*3/uL Nucleated RBC % (auto) 0.0 (0.0-0.2) /100WBC Sodium 140 (135-145) mmol/L Potassium 3.4 (3.3-5.1) mmol/L Chloride 111 H (96-108) mmol/L Carbon Dioxide 21 L (22-29) mmol/L Anion Gap 11 L (12-20) BUN 9 (9-16) mg/dL Creatinine 0.73 (0.5-1.4) mg/dL Estim Creat Clear Calc 53.6 Estimated GFR > 60 Random Glucose 111 (60-115) mg/dL Calcium 8.0 L (8.4-10.2) mg/dL Magnesium 1.3 L* (1.6-2.6) mg/dL Total Bilirubin 0.7 (0.0-1.0) mg/dL AST 57 H (5-31) U/L ALT 24 (0-31) U/L Alkaline Phosphatase 63 (39-117) U/L Troponin I High Sens < 2.7 (<3.5-17.0) ng/L Total Protein 5.9 L (6.5-8.0) g/dL Albumin 3.5 (3.5-5.0) g/dL Vitamin B12 321 (200-900) pg/mL Folate 6.3 (> or = 4.0) ng/mL TSH 4.91 H (0.32-4.0) uIU/mL Ethyl Alcohol < 10 mg/dL Influenza Type A (PCR) NEGATIVE (Negative) Influenza Type B (PCR) NEGATIVE (Negative) RSV RNA Qual (PCR) NEGATIVE (Negative) SARS-CoV-2 RNA (RT-PCR) NEGATIVE (Negative) Critical Care Time Critical Care Time Critical Care Time: Yes Total Critical Care Time: 30 Attestation: ED Critical Care: Intracranial hemorrhage, traumatic. Requiring frequent reassessments, discussion with outside consultants including [facility] transfer center and [facility] trauma surgery Authorized and Performed by: Kavon Kumar MD Total critical care time: Approximately 30 Due to a high probability of clinically significant, life threatening deterioration, the patient required my highest level of preparedness to intervene emergently and I personally spent this critical care time directly and personally managing the patient. This critical care time included obtaining a history; examining the patient; pulse oximetry; ordering and review of studies; arranging urgent treatment with development of a management plan; evaluation of patient's response to treatment; frequent reassessment; and, discussions with other providers. This critical care time was performed to assess and manage the high probability of imminent, life-threatening deterioration that could result in multi-organ failure. It was exclusive of separately billable procedures and treating other patients and teaching time. Discharge Plan Discharge Clinical Impression: Subarachnoid hemorrhage Patient Disposition: [facility] Transfer Details: [facility] Prescriptions: No Action Enbrel SureClick 50 mg/mL (1 mL) pen injector 1 ml subcut WE acetaminophen [Tylenol] 325 mg Tablet 650 mg PO QID PRN (Reason: Pain) levothyroxine 50 mcg tablet 50 mcg PO DAILY@0600 cyanocobalamin (vitamin B-12) 1,000 mcg/mL solution 1,000 mcg IM MO insulin glargine [Lantus Solostar U-100 Insulin] 100 unit/mL (3 mL) insulin pen 9 unit subcut BEDTIME Interventions: Acute Care Transfer Worksheet (ED) Last Done: 09/21/24 22:44 Discharge Date/Time: 09/21/24 22:48 Print Language: Belarusian
--- OUTSIDE RECORDS SUMMARY | 2024-09-21 17:48 | XMS_ITS | Clinical Summary ---
Author Organization [facility] Facility Address [address] [address] Care Team Providers Care Boat Worker Name Role Phone Alva Whaley PA-C Primary Care Prov ider Social History Tobacco Use Types Packs/Day Years Used Date Smoking Tobacco: Never Assessed Comments Unknown Sex and Gender Information Value Date Recorded Sex Assigned at Not on file Legal Sex Female 4:32 PM EST Gender Identity Not on file Sexual Orientation Not on file Plan of Treatment Health Maintenance Due Date Last Done Comments Breast Cancer Screening 1961 Colorectal Cancer Screening: Annual FOBT 2010 Colorectal Cancer Screening: Colonoscopy 2010 Colorectal Cancer Screening: Sigmoidoscopy 2010 Pneumococcal Vaccine: 50+ Ye ars (1 of 1 - PCV) 08/09/2011 Influenza Vaccine (#1) 2024 Hepatitis B Vaccine Aged Out No longe r eligible based on patient's age to complete this topic Insurance Medicaid [place] Care Teams Boat Worker Relationship Specialty Start Date End Date Alva Whaley PA-C PCP - General Retail Project Merchandiser 12/22/19
--- OUTSIDE RECORDS SUMMARY | 2024-09-21 17:48 | XMS_ITS | Data Portability ---
Author Organization [facility] [employer] Address [address] [place] [address] [place] [address] Care Team Providers Care Manager Fund Name Role Phone JENNIFER PETERS Referring Provider [phone] JENNIFER PETERS Primary Care Provider [phone] Assessment Encounter Date Assessment Date Assessment LastModified by Organization Details LastModified Time 11/19/2023 11/19/2023 IMPRESSION: At [facility] 4 years of dizziness, most prominent with [...] By Organization Details Last Modified Time 11/19/2023 [id number] Discussion acros s issues of diagnoses and management and same day associated chart review and management greater than 50% greater than 60 minutes mrossen Not available 11/19/2023 11:56:23 Reason for Referral None Reported. Procedures Surgical History Date Name Laterality Status Provider Name and Address Organization Details Recorded Time 11/19/2023 DATA REVIEW completed Phil Haskins MD [address] [place] [address] [place], [id number], [facility] 11/19/2023 11:26:18 Imaging Results None recorded. Procedure Notes None recorded. Medical Equipment None Reported. Allergies No known drug allergies Medications Name Sig Start Date Stop Date Status Note LastModified by Organization Details LastModified Time d3 250 mcg (02131 ut) caps active Not Available Not Available [...] Time Tobacco Smoking Status Former [facility] 11/19/2023 11:15:27 What Is Your Level Of Caffeine Consumption? Moderate [facility] - Information not available 11/19/2023 What Is The Highest Grade Or Level Of School You Have Completed Or The Highest Degree You Have Received? [id number] [facility] - Information not available 11/19/2023 Which Of Your [...] SNOMED-CT Code Diagnosis ICD10 Code Diagnosis Note [id number] Phil Haskins MD [address] [place] [address] 11/19/2023 10:56:25 11/19/2023 15:23:13 Postural dizziness [id number] R42 Idiopathic peripheral neuropathy [id number] G60.3 Unsteady w hen standing [id number] R26.81 Health Concerns Section Related Observation LastModified by Organization Detai ls LastModified Time None Recorded Concern Status LastModified by Organization Details LastModified Time None Recorded Advance Directives Directive None Recorded Payers Insurance Date Sequence Insurance Name Policy Number Policy Parks Covered Member ID Parks Member ID Guarantor Name 11/16/2023 1 [facility] HP - DOS ON OR AFTER 2022 - [facility] [employer] (MEDICAID REPLACEMENT - HMO) Veronica Amezquita [id number] 1 Veronica Amezquita Notes Date Note Type [...] one of her falls. Phil Haskins MD [address] [place], [place] [address], [phone], [facility] 11/19/2023 13:24:28 OBGyn Episode No OBEpisode recorded.
[2024-09-21 17:54] VITALS: BP 123/64; PULSE 78; RESP 19; O2SAT 98; O2SAT 99
[2024-09-21 17:56] LABS: MANUAL DIFF FLAG NO
[2024-09-21 18:00] VITALS: BP 123/62; PULSE 69; RESP 16; TEMP 36.8; O2SAT 97
[2024-09-21 18:23] LABS: Troponin-I High Sensitivity < 2.7 ng/L (<3.5-17.0)
--- NOTE | 2024-09-21 18:23 | MHC.EDTECH ---
Patient stated she can not stand therefore she is unable to do orthostatic vitals. Nurse is aware
[2024-09-21 18:28] LABS: Alanine Aminotransferase 24 U/L (0-31); Albumin Level 3.5 g/dL (3.5-5.0); Alkaline Phosphatase 63 U/L (39-117); Anion Gap 11 (12-20); Aspartate Amino Transferase 57 U/L (5-31); Blood Urea Nitrogen 9 mg/dL (9-16); Calcium 8.0 mg/dL (8.4-10.2); Carbon Dioxide 21 mmol/L (22-29); Chloride 111 mmol/L (96-108); Creatinine Clr Calc Pharmacy 53.6; Estimated Glomerular Filt Rate > 60; Magnesium 1.3 mg/dL (1.6-2.6); Potassium 3.4 mmol/L (3.3-5.1); Sodium 140 mmol/L (135-145); Total Protein 5.9 g/dL (6.5-8.0)
[2024-09-21 18:34] LABS: Hematocrit 23.1 % (37.0-47.0); Hemoglobin 8.0 g/dl (12.0-16.0); Imm Gran Abs Auto 0.02 X10*3/uL (0.00-0.03); Imm Gran Pct Auto 0.6 % (0.0-0.4); Lymphocytes Absolute Auto 1.2 X10*3/uL (1.2-4.9); Mean Corpuscular HGB Conc 34.6 g/dl (31.0-35.0); Mean Corpuscular Hemoglobin 34.9 pg (27.0-33.0); Mean Corpuscular Volume 100.9 fL (80.0-98.0); NRBC Abs Auto 0.000 X10*3/uL (0.0-0.012); NRBC Pct Auto 0.0 /100WBC (0.0-0.2); Red Blood Count 2.29 X10*6/uL (4.20-5.50); White Blood Count 3.6 X10*3/uL (4.8-10.8)
[2024-09-21 18:36] LABS: Platelet Count 82 X10*3/uL (160-400); Thyroid Stimulating Hormone 4.91 uIU/mL (0.32-4.0)
--- NOTE | 2024-09-21 19:19 | PC.NURSE ---
Addendum entered by Eryn Enamorado RN 09/21/24 19:19: Patient is a 63-year-old female with a past medical history significant for diabetes, SLE, etoh dependence, ? MS, who presents with dizziness over the past several years increasing over the past 2 days with multiple falls. Patient was evaluted on 09/18 for the same. Sutures noted to her forehead with multiple bruising to the face/extremties She was reporting weakness. Unable to stand to participate in orthostatic vital signs. she states her etoh use is variable. Denies etoh use today. Patient alert and oriented. Cachectic in appearance. Lungs coarse throughout. Respirations even and non-labored. Abdomen flat, soft, non-tender with positive bowel sounds. requesting food. Positive pedal pulses with no edema. Mag 1.2 and magnesium po given. Original Note: Past Medical History Medical History Diabetes mellitus Lupus Alcohol abuse
[2024-09-21 20:00] VITALS: BP 103/56; PULSE 72; RESP 18; TEMP 36.2; O2SAT 96
[2024-09-21 20:52] LABS: Resp Syncy Virus RNA Qual PCR NEGATIVE (Negative); SARS COV2 PCR INHOUSE NEGATIVE (Negative)
[2024-09-21 21:00] LABS: Folate 6.3 ng/mL (> or = 4.0); Vitamin B12 321 pg/mL (200-900)
[2024-09-21 22:00] VITALS: BP 117/64; PULSE 73; RESP 21; TEMP 36.6; O2SAT 98
[2024-09-21 22:44] VITALS: BP 117/64; PULSE 73; RESP 21; TEMP 36.6; O2SAT 98
== END 2024-09-21 22:48 | disposition short-term general hospital (02) ==
PROVIDERS: Emergency Provider Emergency Medicine; PCP Nurse Practitioner Family
DX: S06.6XAA Traumatic subarachnoid hemorrhage with loss of consciousness status unknown, initial encounter (principal); W19.XXXA Unspecified fall, initial encounter; Y93.9 Activity, unspecified; Y92.9 Unspecified place or not applicable; Y99.9 Unspecified external cause status; D61.818 Other pancytopenia; R55 Syncope and collapse; E11.9 Type 2 diabetes mellitus without complications; M32.9 Systemic lupus erythematosus, unspecified; F10.90 Alcohol use, unspecified, uncomplicated; Y90.0 Blood alcohol level of less than 20 mg/100 ml; F17.200 Nicotine dependence, unspecified, uncomplicated; Z79.4 Long term (current) use of insulin; Z79.899 Other long term (current) drug therapy
CPT/HCPCS: 36415; 70450; 71045; 80053; 80307; 82607; 82746; 83735; 84443; 84484; 85025; 87637; 93005; 96361; 96374; 99285; 99291; J3411

== ENCOUNTER → 2024-09-21 18:00 | Outpatient (BNV) | payer MEDICAID, SELFPAY | PROVIDERS: Emergency Provider Emergency Medicine; PCP Nurse Practitioner Family; Visit Provider Radiology Diagnostic Radiology | DX: S06.6XAA Traumatic subarachnoid hemorrhage with loss of consciousness status unknown, initial encounter (principal); F17.200 Nicotine dependence, unspecified, uncomplicated; R63.4 Abnormal weight loss; W19.XXXA Unspecified fall, initial encounter | CPT/HCPCS: 70450; 71045 ==

== ENCOUNTER → 2024-09-21 18:06 | Outpatient (BNV) | payer MEDICAID, SELFPAY | PROVIDERS: Emergency Provider Emergency Medicine; PCP Nurse Practitioner Family; Visit Provider Internal Medicine | DX: R94.31 Abnormal electrocardiogram [ECG] [EKG] (principal); R55 Syncope and collapse | CPT/HCPCS: 93010 ==